=== PATIENT | male | born 1945 | race Caucasian/White ===

== ENCOUNTER → 2016-08-06 | Outpatient (CLI) | payer MEDICARE ==
[2016-08-06 12:09] LABS: Basophils % (A) 0 %; CH 33.6; CHCM 31.6; Eosinophils # (A) 0.3 k/uL (0-0.7); Eosinophils % (A) 6 %; HCT 37.1 % (39.0-53.0); HDW 2.47; HGB 11.9 gm/dL (13.0-17.5); Luc # (Auto) 0.14; Luc % (Auto) 3; Lymphocytes # (A) 1.1 k/uL (1.0-4.8); Lymphocytes % (A) 24 %; MCH 34.4 pg (25.0-35.0); MCV 107.3 fL (80.0-100.0); Macrocytosis Marked; Mean Platelet Volume 8.5; Monocytes # (A) 0.3 k/uL (0-1.0); Monocytes % (A) 6 %; Neutrophils # (A) 2.9 k/uL (1.3-7.7); Neutrophils % (A) 61 %; RBC 3.46 m/uL (4.30-5.90); RDW 15.5 % (11.5-15.5); WBC 4.7 k/uL (3.8-10.6); WBC (Perox) 4.93
[2016-08-06 12:10] LABS: Appearance,Urine Clear (Clear); Bilirubin,Urine Negative (Negative); Glucose,Urine (UA) Negative (Negative); Ketones,Urine Negative (Negative); Leukocyte Esterase,Urine Negative (Negative); Nitrite,Urine Negative (Negative); Protein,Urine Negative (Negative); Specific Gravity,Urine 1.009 (1.001-1.035); UA Billing (MACRO vs. MICRO) CHEM; Urobilinogen,Urine <2.0 mg/dL (<2.0)
[2016-08-06 12:27] LABS: Calcium 8.8 mg/dL (8.4-10.2); Magnesium 2.1 mg/dL (1.6-2.3); Phosphorous 3.4 mg/dL (2.5-4.5); Potassium 5.1 mmol/L (3.5-5.1)
[2016-08-06 12:36] LABS: % Iron Saturation 35.8 % (20-50)
[2016-08-06 14:13] LABS: Manual Review Performed
[2016-08-06 14:14] LABS: Polychromasia Present
== END ==
LOC: LABWHC1 11:37
PROVIDERS: ATTEND Nurse Practitioner Family
DX: N18.3 Chronic kidney disease, stage 3 (moderate) (principal); N25.81 Secondary hyperparathyroidism of renal origin; D64.9 Anemia, unspecified; N39.0 Urinary tract infection, site not specified
CPT/HCPCS: 36415; 80048; 81003; 82306; 82728; 83540; 83550; 83735; 83970; 84100; 85025

== ENCOUNTER 2016-08-28 11:33 | Emergency (ER) | payer MEDICARE ==
[2016-08-28] MEDS ORDERED: KETOROLAC 60 MG/2 ML VIAL IM STA (12:12)
[2016-08-28] MEDS ORDERED: ORPHENADRINE 30 MG/ML 2 ML VIAL IM STA (12:13)
--- NOTE | 2016-08-28 12:17 | ED ---
General Adult HPI - General Chief complaint: Neck Pain/Injury Stated complaint: Neck/head pain Time Seen by Provider: 08/28/16 11:35 Source: patient, RN notes reviewed Mode of arrival: ambulatory Limitations: no limitations - History of Present Illness Initial comments: This is a 71-year-old male who presents emergency Department with a past medical history significant for smoking 55+ years. Patient comes in today stating he has a 2 week history of left-sided neck stiffness which radiates up into his head. Patient states he has had some history of left ear surgery because of infection eating into his bone but he knows no other history aside from that. Patient states this pain is much worse with movement and it seems to be getting worse and not better. Patient has not taken anything for the pain. Patient has not seen his primary medical care doctor. Patient denies any numbness weakness. Patient denies any headache. He states the pain is in the scalp and it seems to increase when he makes certain movements. Patient denies any recent fever chills or cough. Patient denies any swelling lumps or bumps. Patient denies any chest pain difficult breathing or shortness of breath. Patient states she has a chronic cough but no sputum production and it is not an increase in a cough. Patient denies abdominal pain - Related Data Home Medications Medication Instructions Recorded Confirmed Ferrous Sulfate [Feosol] 325 mg PO DAILY 04/22/14 08/28/16 Lisinopril [Zestril] 10 mg PO DAILY 04/22/14 08/28/16 Lovastatin [Mevacor] 20 mg PO BID 04/22/14 08/28/16 Terazosin [Hytrin] 2 mg PO HS 04/22/14 08/28/16 Allopurinol [Zyloprim] 100 mg PO BID 07/29/15 08/28/16 Clopidogrel [Plavix] 75 mg PO DAILY 07/29/15 08/28/16 Famotidine [Pepcid] 40 mg PO DAILY 07/29/15 08/28/16 Metoprolol Tartrate [Lopressor] 25 mg PO BID 07/29/15 08/28/16 Ergocalciferol (Vitamin D2) 50,000 unit PO Q30D 08/28/16 08/28/16 [Vitamin D2] Furosemide [Lasix] 40 mg PO DAILY 08/28/16 08/28/16 Previous Rx's Medication Instructions Recorded Orphenadrine [Norflex] 100 mg PO Q12H #10 tablet.er 08/28/16 Allergies Allergy/AdvReac Type Severity Reaction Status Date / Time Iodinated Contrast Media - Allergy Unknown Verified 08/28/16 12:29 Oral and [Iodinated Contrast Media - IV Dye] Review of Systems ROS Statement: Those systems with pertinent positive or pertinent negative responses have been documented in the HPI. ROS Other: All systems not noted in ROS Statement are negative. Past Medical History Past Medical History: Chest Pain / Angina, COPD, CVA/TIA, Hyperlipidemia, Hypertension, Renal Disease Additional Past Medical History / Comment(s): Bleeding stomach ulcers, TETLIN left ear History of Any Multi-Drug Resistant Organisms: None Reported Past Surgical History: Tonsillectomy Additional Past Surgical History / Comment(s): left carotid endarectomy Past Anesthesia/Blood Transfusion Reactions: No Reported Reaction Past Psychological History: No Psychological Hx Reported Smoking Status: Current every day smoker Past Alcohol Use History: None Reported Past Drug Use History: None Reported - Past Family History Mother Family Medical History: Cancer Additional Family Medical History / Comment(s): colon Father Additional Family Medical History / Comment(s): Sister(s) Family Medical History: Cancer, Congestive Heart Failure (CHF) General Exam - General Exam Comments Initial Comments: GENERAL: Patient is well-developed and well-nourished. Patient is nontoxic and well- hydrated and is in mild distress. ENT: Neck is soft and supple. No significant lymphadenopathy is noted. Oropharynx is clear. Moist mucous membranes. Patient has significant neck stiffness. Patient can only look to the right about 15 and to the left about 30. Patient has difficulty looking up or down. He states most of this decreased range of motion is worse than normal although he has some baseline decreased range of motion. EYES: The sclera were anicteric and conjunctiva were pink and moist. Extraocular movements were intact and pupils were equal round and reactive to light. Eyelids were unremarkable. PULMONARY: Unlabored respirations. Good breath sounds bilaterally. No audible rales rhonchi or wheezing was noted. CARDIOVASCULAR: There is a regular rate and rhythm without any murmurs gallops or rubs. ABDOMEN: Soft and nontender with normal bowel sounds. No palpable organomegaly was noted. There is no palpable pulsatile mass. SKIN: Skin is clear with no lesions or rashes and otherwise unremarkable. NEUROLOGIC: Patient is alert and oriented x3. Cranial nerves II through XII are grossly intact. Motor and sensory are also intact. Normal speech, volume and content. Symmetrical smile. MUSCULOSKELETAL: Normal extremities with adequate strength and full range of motion. No lower extremity swelling or edema. No calf tenderness. LYMPHATICS: No significant lymphadenopathy is noted PSYCHIATRIC: Normal psychiatric evaluation. Normal interpersonal interactions appears functionally intact in deals appropriately with others. No signs of depression. No signs of anxiety. Limitations: no limitations Course Vital Signs 08/28/16 11:34 Temperature 96.8 F L Pulse Rate 74 Respiratory 18 Rate Blood Pressure 195/87 O2 Sat by Pulse 99 Oximetry Medical Decision Making - Medical Decision Making I will begin to reevaluate the patient he states he felt better. CT of the brain and neck show no acute abnormality Disposition Clinical Impression: Strain of neck muscle Disposition: HOME SELF-CARE Condition: Good Instructions: Cervical Strain (ED) Prescriptions: Orphenadrine [Norflex] 100 mg PO Q12H #10 tablet.er Referrals: Saeed Maddox MD [Primary Care Provider] - 1-2 days Time of Disposition: 13:01
--- NOTE | 2016-08-28 12:45 | CT ---
EXAMINATION TYPE: CT brain cspine wo con DATE OF EXAM: 08/28/2016 12:38 PM COMPARISON: CT brain November 09, 2009 HISTORY: Neck pain and CAMER[place] CT DLP: 1833 mGycm. Automated Exposure Control for Dose Reduction was Utilized. TECHNIQUE: CT scan of the head and cervical spine are performed without contrast. FINDINGS: There is no acute intracranial hemorrhage or midline shift identified. The ventricles an d sulci are within normal limits in size. There are vague areas of low-attenuation bilateral sierra r [place] new on the right and increased in prominence on the left consistent with age indeterminate isc hemia. The globes are intact and the visualized sinuses are clear. Cervical spine is visualized in its entirety from C1 through upper thoracic levels and demonstrates s traightened alignment without evidence of acute fracture or dislocation. Prevertebral soft tissue ap pears within normal limits. The C1-C2 articulation is within normal limits on the coronal images. Vertebral body heights are maintained. There is mild disc space narrowing C6-C7 and C7-T1 levels. Mod erate multilevel anterior and lateral spurring is present. Spinal canal is fairly well-maintained. Review of axial images shows left-sided uncovertebral facet degenerative changes at C2-C3 level causi ng asymmetric mild to moderate left-sided neural foraminal narrowing. Axial images at C3-C4 level show marginal spurring and bilateral uncovertebral facet degenerative lora nges causing moderate to advanced left and moderate right-sided neural foraminal narrowing. Thyroid gland is normal in size. There is emphysematous change in lung apices with apical fibrosis an d right lung apical subpleural bleb formation. IMPRESSION: 1. There is no acute fracture or dislocation evident in the cervical spine. Multilevel degenerative c hanges are seen as detailed above. 2. No acute intracranial hemorrhage or midline shift shift is seen. Age-indeterminate infarcts bilate ral coronal radiata most likely chronic in age. Clinical correlation advised.
[2016-08-28 13:20] VITALS: BP 157/77; PULSE 62; RESP 16; TEMP 98.2
== END 2016-08-28 13:15 | disposition home or self-care (01) ==
LOC: EC 11:33
DX: S16.1XXA Strain of muscle, fascia and tendon at neck level, initial encounter (principal); I10 Essential (primary) hypertension; E78.5 Hyperlipidemia, unspecified; J44.9 Chronic obstructive pulmonary disease, unspecified; F17.200 Nicotine dependence, unspecified, uncomplicated; Z79.899 Other long term (current) drug therapy; Z79.02 Long term (current) use of antithrombotics/antiplatelets; Z91.041 Radiographic dye allergy status; Z86.73 Personal history of transient ischemic attack (TIA), and cerebral infarction without residual deficits; Z87.448 Personal history of other diseases of urinary system; Z87.19 Personal history of other diseases of the digestive system; Z86.79 Personal history of other diseases of the circulatory system; X58.XXXA Exposure to other specified factors, initial encounter
CPT/HCPCS: 72125; 70450; 99283; 96372 ×2; J2360; J1885

== ENCOUNTER → 2016-11-01 | Outpatient (CLI) | payer MEDICARE ==
[2016-11-01 09:35] LABS: Appearance,Urine Clear (Clear); Bilirubin,Urine Negative (Negative); Glucose,Urine (UA) Negative (Negative); Ketones,Urine Negative (Negative); Leukocyte Esterase,Urine Negative (Negative); Nitrite,Urine Negative (Negative); PH, Urine 5.5 (5.0-8.0); Protein,Urine Negative (Negative); Specific Gravity,Urine 1.011 (1.001-1.035); UA Billing (MACRO vs. MICRO) CHEM; Urobilinogen,Urine <2.0 mg/dL (<2.0)
[2016-11-01 09:43] LABS: Calcium 9.2 mg/dL (8.4-10.2); Magnesium 2.3 mg/dL (1.6-2.3); Phosphorous 5.3 mg/dL (2.5-4.5); Potassium 5.5 mmol/L (3.5-5.1); Uric Acid 10.1 mg/dL (3.5-8.5)
[2016-11-01 09:52] LABS: % Iron Saturation 48.3 % (20-50)
[2016-11-01 10:04] LABS: Basophils % (A) 1 %; CH 33.9; CHCM 32.3; Eosinophils # (A) 0.3 k/uL (0-0.7); Eosinophils % (A) 5 %; HCT 35.8 % (39.0-53.0); HDW 2.31; Luc # (Auto) 0.17; Luc % (Auto) 3; Lymphocytes # (A) 1.1 k/uL (1.0-4.8); Lymphocytes % (A) 21 %; MCH 35.3 pg (25.0-35.0); MCHC 33.4 g/dL (31.0-37.0); MCV 105.5 fL (80.0-100.0); Macrocytosis Moderate; Mean Platelet Volume 9.7; Monocytes # (A) 0.4 k/uL (0-1.0); Monocytes % (A) 8 %; Neutrophils # (A) 3.4 k/uL (1.3-7.7); Neutrophils % (A) 62 %; RBC 3.39 m/uL (4.30-5.90); RDW 14.3 % (11.5-15.5); WBC 5.4 k/uL (3.8-10.6); WBC (Perox) 6.12
== END | disposition home or self-care (01) ==
LOC: LABWHC1 09:10
PROVIDERS: ATTEND Internal Medicine Nephrology
DX: N39.0 Urinary tract infection, site not specified (principal); D64.9 Anemia, unspecified; M10.9 Gout, unspecified; E55.9 Vitamin D deficiency, unspecified; N18.4 Chronic kidney disease, stage 4 (severe)
CPT/HCPCS: 36415; 80048; 81003; 82306; 82728; 83540; 83550; 83735; 83970; 84100; 84550; 85025

== ENCOUNTER 2016-11-12 15:24 | Inpatient (IN) | payer MEDICARE ==
[2016-11-12] MEDS ORDERED: SODIUM CHLORIDE 0.9% 1,000 ML IV STA (16:15)
[2016-11-12] MEDS ORDERED: SODIUM CHLORIDE 0.9% 1,000 ML IV ONE (16:36)
--- NOTE | 2016-11-12 16:46 | ED ---
General Adult HPI - General Chief complaint: Recheck/Abnormal Lab/Rx Stated complaint: labs/kidney-sent by Time Seen by Provider: 11/12/16 16:00 Source: patient, RN notes reviewed, old records reviewed Mode of arrival: ambulatory Limitations: no limitations - History of Present Illness Initial comments: This is a 71-year-old male here for evaluation of abnormal lab outpatient test. Patient states is been having lab tests drawn for quite some time, I believe is related to his kidneys. Otherwise he has no symptoms. Does admit to not drinking very much water. Asthma to feeling dehydrated with minimal urine output. Denies any significant edema no shortness of breath. Denies any change in medications. - Related Data Home Medications Medication Instructions Recorded Confirmed Lovastatin [Mevacor] 20 mg PO HS 04/22/14 11/12/16 Terazosin [Hytrin] 2 mg PO HS 04/22/14 11/12/16 Allopurinol [Zyloprim] 100 mg PO DAILY 07/29/15 11/12/16 Clopidogrel [Plavix] 75 mg PO DAILY 07/29/15 11/12/16 Famotidine [Pepcid] 40 mg PO DAILY 07/29/15 11/12/16 Metoprolol Tartrate [Lopressor] 25 mg PO BID 07/29/15 11/12/16 Furosemide [Lasix] 40 mg PO DAILY 08/28/16 11/12/16 Calcitriol 0.5 mcg PO Q7D 11/12/16 11/12/16 hydrALAZINE HCL [Apresoline] 50 mg PO BID 11/12/16 11/12/16 Allergies Allergy/AdvReac Type Severity Reaction Status Date / Time Iodinated Contrast Media - Allergy Unknown Verified 11/12/16 16:37 Oral and [Iodinated Contrast Media - IV Dye] Review of Systems ROS Statement: Those systems with pertinent positive or pertinent negative responses have been documented in the HPI. ROS Other: All systems not noted in ROS Statement are negative. Past Medical History Past Medical History: Chest Pain / Angina, COPD, CVA/TIA, Hyperlipidemia, Hypertension, Renal Disease Additional Past Medical History / Comment(s): Bleeding stomach ulcers, HOPI left ear History of Any Multi-Drug Resistant Organisms: None Reported Past Surgical History: Tonsillectomy Additional Past Surgical History / Comment(s): left carotid endarectomy Past Anesthesia/Blood Transfusion Reactions: No Reported Reaction Past Psychological History: No Psychological Hx Reported Smoking Status: Current every day smoker Past Alcohol Use History: None Reported Past Drug Use History: None Reported - Past Family History Mother Family Medical History: Cancer Additional Family Medical History / Comment(s): colon Father Additional Family Medical History / Comment(s): Sister(s) Family Medical History: Cancer, Congestive Heart Failure (CHF) General Exam Limitations: no limitations General appearance: alert, in no apparent distress Head exam: Present: atraumatic, normocephalic, normal inspection Eye exam: Present: normal appearance, PERRL, EOMI. Absent: scleral icterus, conjunctival injection, periorbital swelling ENT exam: Present: normal exam, mucous membranes moist Neck exam: Present: normal inspection. Absent: tenderness, meningismus, lymphadenopathy Respiratory exam: Present: normal lung sounds bilaterally. Absent: respiratory distress, wheezes, rales, rhonchi, stridor Cardiovascular Exam: Present: regular rate, normal rhythm, normal heart sounds. Absent: systolic murmur, diastolic murmur, rubs, gallop, clicks GI/Abdominal exam: Present: soft, normal bowel sounds. Absent: distended, tenderness, guarding, rebound, rigid Extremities exam: Present: normal inspection, full ROM, normal capillary refill. Absent: tenderness, pedal edema, joint swelling, calf tenderness Back exam: Present: normal inspection Neurological exam: Present: alert, oriented X3, CN II-XII intact Psychiatric exam: Present: normal affect, normal mood Skin exam: Present: warm, dry, intact, normal color. Absent: rash Course Vital Signs 11/12/16 15:39 Temperature 98.4 F Pulse Rate 74 Respiratory 20 Rate Blood Pressure 140/65 O2 Sat by Pulse 96 Oximetry - Reevaluation(s) Reevaluation #1: 11/12/16 16:45 Patient's lab evaluation from earlier in the during regarding renal function have doubled guiding his creatinine and severely decreased regarding his GFR Medical Decision Making - Medical Decision Making 71 [place] for evaluation and oral abscess, does have acute renal failure. Severe. Patient will be admitted for nephrology consult Disposition Clinical Impression: Renal insufficiency, Acute on chronic renal insufficiency Disposition: ADMITTED IP TO THIS HOSP Condition: Fair Referrals: Saeed Maddox MD [Primary Care Provider] - 1-2 days
[2016-11-12 17:01] LABS: Basophils % (A) 1 %; CH 34.8; CHCM 34.1; Eosinophils # (A) 0.3 k/uL (0-0.7); Eosinophils % (A) 5 %; HCT 34.3 % (39.0-53.0); HDW 2.35; HGB 11.6 gm/dL (13.0-17.5); Luc % (Auto) 3; Lymphocytes # (A) 1.4 k/uL (1.0-4.8); Lymphocytes % (A) 23 %; MCH 34.6 pg (25.0-35.0); MCHC 33.8 g/dL (31.0-37.0); MCV 102.5 fL (80.0-100.0); Macrocytosis Slight; Mean Platelet Volume 10.4; Monocytes # (A) 0.3 k/uL (0-1.0); Monocytes % (A) 6 %; Neutrophils # (A) 3.7 k/uL (1.3-7.7); Neutrophils % (A) 63 %; RBC 3.35 m/uL (4.30-5.90); RDW 14.2 % (11.5-15.5); WBC 5.9 k/uL (3.8-10.6); WBC (Perox) 5.85
[2016-11-12 17:11] LABS: INR 1.2 (<1.1); Partial Thromboplastin Time 27.1 sec (22.0-30.0); Prothrombin Time 11.7 sec (9.0-12.0)
[2016-11-12 17:12] LABS: Appearance,Urine Clear (Clear); Bilirubin,Urine Negative (Negative); Glucose,Urine (UA) Negative (Negative); Ketones,Urine Negative (Negative); Leukocyte Esterase,Urine Small (Negative); Nitrite,Urine Negative (Negative); Particle Count 2881; Protein,Urine 1+ (Negative); RBC,Urine 4 /hpf (0-5); Specific Gravity,Urine 1.009 (1.001-1.035); Sperm,Urine Moderate /hpf; UA Billing (MACRO vs. MICRO) MICRO; Urobilinogen,Urine <2.0 mg/dL (<2.0); WBC,Urine 12 /hpf (0-5)
[2016-11-12 17:19] LABS: Calcium 9.1 mg/dL (8.4-10.2); Magnesium 2.5 mg/dL (1.6-2.3); Phosphorous 7.5 mg/dL (2.5-4.5); Total Bilirubin 0.6 mg/dL (0.2-1.3); Total Protein 7.1 g/dL (6.3-8.2)
[2016-11-12 17:26] LABS: Creatine Kinase 146 U/L (55-170)
[2016-11-12 17:30] LABS: Manual Review Performed
[2016-11-12 17:39] LABS: Creatine Kinase MB 1.8 ng/mL (0.0-2.4); Troponin I <0.012 ng/mL (0.000-0.034)
[2016-11-12 18:47] VITALS: BMI 25.8
--- NOTE | 2016-11-12 20:14 | US ---
EXAMINATION TYPE: US renals and bladder DATE OF EXAM: 11/12/2016 COMPARISON: Prior US and CT in PACS CLINICAL HISTORY: Renal Failure EXAM MEASUREMENTS: Right Kidney: 7.8 x 3.1 x 3.0 cm Left Kidney: 11.5 x 5.1 x 4.9 cm Right Kidney: Atrophic. Cystic area visualized measuring 1.0 cm Left Kidney: Lobulated contour. No hydronephrosis Bladder: No fully distended, wnl as visualized Bilateral Jets seen: Right jet not visualized IMPRESSION: No obstructive uropathy or other acute process.
[2016-11-12] MEDS ORDERED: ACETAMINOPHEN TAB 325 MG TAB PO PRN (21:36)
[2016-11-12] MEDS ORDERED: TEMAZEPAM 7.5 MG CAP PO PRN (21:37)
[2016-11-12] MEDS: TERAZOSIN 2 MG CAP PO SCH (21:41)
[2016-11-12] MEDS: hydrALAZINE HCL 50 MG TAB PO SCH (21:41)
[2016-11-12] MEDS: FAMOTIDINE 20 MG TAB PO SCH (21:41)
[2016-11-12] MEDS: ATORVASTATIN 10 MG TAB PO SCH (21:41)
[2016-11-12] MEDS: SODIUM POLYSTYRENE SULFONATE 15 GM/60 ML BOTTLE PO SCH (21:42)
[2016-11-12] MEDS: METOPROLOL TARTRATE 25 MG TAB PO SCH (21:42)
[2016-11-12] MEDS ORDERED: ONDANSETRON 4 MG/2 ML VIAL IVP PRN (21:45)
--- NOTE | 2016-11-12 23:17 | HP ---
DATE OF ADMISSION: Mr. 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 Patient has been having apparently several weeks at least of feeling bad, with recurrent nausea, unable to eat or drink much because after doing so he becomes nauseated. He states he has been moving his stool. Family members seem to relate a 10-pound weight loss over the past month or 2, but there is some variability from different members of the patient's family. No fever or chills. No headaches. Patient does have a history of chronic renal failure, stage III to IV, and is followed by Dr. Huddleston from Nephrology. Apparently labs showed worsening renal failure and he was sent to the emergency room. Other past medical history besides the underlying chronic renal failure is positive for hypertension, hypertensive heart disease. There is continued tobacco usage. 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 There is a history of gout. There is also history of BPH. He has also had left carotid endarterectomy. The patient himself has a history of polyps; multiple polyps on a colonoscopy roughly 4 to 5 years previous; also has a positive family history. He also has a history of previous TIAs and hyperlipidemia. Home medications included: 1. Furosemide 40 mg every second day. 2. Vitamin D 50,000 units every 14 days. 3. Plavix 75 mg daily. 4. Hytrin 2 mg at bedtime. 5. Lopressor 25 mg twice a day. 6. Mevacor 20 mg at bedtime. 7. Pepcid 20 mg twice a day. 8. Calcitriol 20 mg twice a day. 9. Hydralazine 50 mg twice a day. 10. Allopurinol 100 mg daily. There is history of ALLERGIES to IODINATED CONTRAST MEDIA. No other allergies. REVIEW OF SYSTEMS: As in the history of present illness. No unusual headache. No visual disturbances. No hematemesis or hematochezia. Denies any unusual abdominal discomfort. No chest pain. No fever, chills or cough. States he is moving a small amount of bowel movements once or twice a day that are at times loose. Denies any urinary problems. Trace to no edema development. FAMILY HISTORY: As mentioned, positive for colon cancer in his mother. He also has a sister with congestive heart failure. SOCIAL HISTORY: Positive for smoking. No excessive alcohol usage. He lives locally with his in the area. On physical examination, temperature is 96.2 with a pulse of 72 and respirations 20. Blood pressure is 169/87 and he is 97% saturated on room air. HEENT: Unremarkable. No adenopathy or carotid bruits. There is some poor dentition. LUNGS: Clear. Heart tones were regular without definitive murmurs. ABDOMEN: Mildly distended but overall soft without rebound, guarding or masses detected. Extremities reveal trace ankle edema. They are warm. No ulcerations. Neurologically he is alert and oriented. Cranial nerves intact. No focal weakness noted. Lab testing revealed a white count of 5.9, hemoglobin 11.6, platelet count of 85. His INR is 1.2 with a PTT of 27. His sodium is 142, potassium of 6, CO2 content of 16. BUN 123 with creatinine 8.1. Glucose 104. Phosphorus is elevated at 7.5. Magnesium 2.5. Alkaline phosphatase was elevated at 194. Other liver function tests were satisfactory. His troponin was less than 0.012. Albumin on presentation was 4.3. Urine revealed a small amount of leukocyte esterase, 12 white cells, 4 RBCs. The patient also had an EKG which revealed a regular sinus rhythm; essentially unremarkable. Ultrasound of the kidneys did not show any hydronephrosis. OVERALL IMPRESSION: 1. Acute on chronic renal failure, now stage V, with a GFR of 7, associated with hyperkalemia. 2. Other past medical history including hypertension and hypertensive heart disease. 3. Continued tobacco usage. 4. History of gout. 5. Benign prostatic hypertrophy. 6. Status post left carotid endarterectomy. 7. Status post surgery on the left ear for cholesteatoma removal last year. 8. History of colon polyps. 9. Positive family history of colon cancer in his mother. 10. Hyperlipidemia. 11. History of previous transient ischemic attack. PLAN AT THIS TIME: Patient is being admitted, will be hydrated. Nephrology to be consulted. Likely will give Kayexalate if tolerated for his potassium. Follow up renal function. Will hold any renal-toxic medications. Further recommendations pending clinical response and results of above.
[2016-11-13] MEDS: hydrALAZINE HCL 50 MG TAB PO SCH ×2 (07:43→21:43)
[2016-11-13] MEDS: CLOPIDOGREL 75 MG TAB PO SCH (07:43)
[2016-11-13] MEDS: SODIUM POLYSTYRENE SULFONATE 15 GM/60 ML BOTTLE PO SCH ×3 (07:43→23:54)
[2016-11-13] MEDS: FAMOTIDINE 20 MG TAB PO SCH (07:43)
[2016-11-13] MEDS: METOPROLOL TARTRATE 25 MG TAB PO SCH ×2 (08:16→21:43)
--- NOTE | 2016-11-13 08:29 | P.PN ---
Progress Note - Text The patient is a 71-year-old gentleman who presented yesterday to the emergency room with acute on chronic renal failure stage V. Patient for apparently several weeks according to his has not been feeling well. Has not been able to eat or drink much in the way of fluids or other sustenance. Apparently he has lost about 10 pounds. He has been nauseated. Does not complain of any fever or chills or cough. Denies any unusual chest pain. He has been moving his bowels regularly but more small amounts. Patient was found to have elevated BUN and creatinine yesterday to 123 and creatinine of 8.1. His potassium also was elevated in the emergency room at 6.0. Patient has received Kayexalate and IV hydration. Today he is sitting up at side of the bed. He was a little nauseated from the Kayexalate earlier this morning. Temperature is 97.1 with a pulse of 74 and respirations 22 and nonlabored. Blood pressure is 157/86 and he is 93% saturated on room air. Lung and heart exam was clear and regular. Abdomen nontender. No unusual edema. No focal neurological deficits. Laboratory values from this morning pending. Impressions and plans: Acute stage V renal failure on chronic renal failure. Underlying history of hypertension. Likely aggravated by dehydration and poor renal perfusion. At this point we'll continue with the IV hydration and Kayexalate along with holding nephrotoxic medications. Consult for nephrology has been placed and we'll await for their opinion. Discussed with patient and spouse at bedside along with nursing staff this morning.
[2016-11-13 08:33] LABS: Calcium 8.5 mg/dL (8.4-10.2); Potassium 5.7 mmol/L (3.5-5.1)
[2016-11-13] MEDS ORDERED: SODIUM CHLORIDE 0.45% 1,000 ML IV SCH (19:45)
--- NOTE | 2016-11-13 20:16 | CONS ---
DATE OF CONSULTATION: November 13, 2016 REASON FOR CONSULTATION: Renal failure. HISTORY OF PRESENT ILLNESS: Patient is a 71-year-old white male who was admitted to the hospital for abnormal labs. He was noted to have a serum creatinine as outpatient to be around 7 mg/dL, but when he came in his creatinine was at 8.1 and serum potassium was at 6.0. Patient states he has been voiding. His ultrasound did not show any hydronephrosis. He did admit to decreased oral intake prior to admission. Patient was not hypotensive, however. He has been off of the GAEL inhibitors as outpatient and was started on hydralazine and Coreg for hypertension. He denies use of any nonsteroidal anti-inflammatory agents. No other new medications or antibiotics recently. Currently patient is maintained on IV fluids and his creatinine has improved to about 6.8 from 8.1 on initial admission. Patient has been voiding and he denies any issues with voiding. PAST MEDICAL HISTORY: Chronic kidney disease with baseline creatinine of around 2 mg/dL. His creatinine was at 2.5 in August 2016. It did go up to around 4.1 on November 01 and subsequently 8.3. Etiology of chronic kidney disease is nephrosclerosis. Hypertension, nutritional vitamin D deficiency, history of BPH, secondary hyperparathyroidism, hyperuricemia. ALLERGIES INCLUDE IV DYE. Medications at home prior to admission included: 1. Lasix. 2. Vitamin D. 3. Plavix. 4. Hytrin. 5. Lopressor. 6. Mevacor. 7. Pepcid. 8. Calcitriol. 9. Hydralazine. 10. Allopurinol. PAST SURGICAL HISTORY: Carotid endarterectomy, surgery for left ear cholesteatoma, colonoscopy. SOCIAL HISTORY: Positive for smoking. No history of drug abuse or alcohol abuse. REVIEW OF SYSTEMS: As per HPI. Other systems negative. On examination, patient is comfortable, awake. He is not in any acute distress. He is alert and oriented x3. Blood pressure this morning was 157/86, heart rate 74 per minute. The patient is afebrile. HEART: S1 and S2. LUNGS: Bilateral breath sounds are heard. ABDOMEN: Soft, nontender. Lower extremities show no significant edema. 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 Patient is moving all 4 extremities. Labs show sodium 142, potassium 5.7, chloride 113, CO2 is 14, BUN 117, serum creatinine 6.8. Hemoglobin 11.6 g/dL. Phosphorus was at 7.5. UA shows 1+ protein, 12 WBCs. ASSESSMENT: 1. Acute kidney injury. Appears to be prerenal. Continue with IV fluids. Creatinine has improved from 8.1 to 6.8. There is no evidence of obstructive uropathy. I will check a postvoid residual scan. Ultrasound was otherwise unremarkable. 2. Chronic kidney disease with baseline creatinine about 2 to 2.5 mg/dL as of August 2016. 3. Hyperkalemia associated with acute kidney injury and metabolic acidosis, status post Kayexalate and currently improved. 4. Metabolic acidosis, anion gap secondary to renal failure, slightly worsened. Will add oral sodium bicarb and switch IV fluids to half normal saline. 5. Hyperphosphatemia associated with renal failure. Add phosphate binders. PLAN: Change IV fluids to half normal saline. Add oral sodium bicarb. Add PhosLo. Repeat labs in a.m. Avoid hypotension. Thank you for this consultation. Will continue to follow the patient with you during his hospitalization.
[2016-11-13] MEDS: ATORVASTATIN 10 MG TAB PO SCH (21:43)
[2016-11-13] MEDS: TERAZOSIN 2 MG CAP PO SCH (21:43)
[2016-11-13] MEDS: SODIUM BICARBONATE TAB 650 MG TAB PO SCH (21:47)
[2016-11-13] MEDS ORDERED: IPRATROPIUM-ALBUTEROL 3 ML NEB INHALATION STA (23:19)
--- NOTE | 2016-11-14 06:54 | XR ---
EXAMINATION TYPE: XR chest 2V DATE OF EXAM: 11/14/2016 COMPARISON: Chest x-ray July 30, 2015. CT abdomen and pelvis November 04, 2015 HISTORY: Shortness of breath TECHNIQUE: Frontal and lateral views of the chest are obtained. FINDINGS: There is chronic emphysematous change with persistent small left pleural effusion or pleur al thickening unchanged from prior study. Latter suspected based on CT abdomen correlation. There is no associated left basilar atelectasis and/or infiltrate more prominent on lateral view is prior. Rig ht lung remains clear. The cardiac silhouette size is stable and upper limits of normal. The osseou s structures are intact. IMPRESSION: There is stable tiny left pleural thickening with new left basilar atelectasis and/or in filtrate.
[2016-11-14] MEDS: IPRATROPIUM-ALBUTEROL 3 ML NEB INHALATION PRN ×4 (07:04→19:49)
[2016-11-14] MEDS: CALCIUM ACETATE 667 MG CAP PO SCH ×3 (07:39→15:58)
[2016-11-14] MEDS: FAMOTIDINE 20 MG TAB PO SCH (07:39)
[2016-11-14] MEDS: METOPROLOL TARTRATE 25 MG TAB PO SCH ×2 (07:39→20:47)
[2016-11-14] MEDS: hydrALAZINE HCL 50 MG TAB PO SCH ×2 (07:39→20:47)
[2016-11-14] MEDS: SODIUM BICARBONATE TAB 650 MG TAB PO SCH ×2 (07:39→20:47)
[2016-11-14] MEDS: CLOPIDOGREL 75 MG TAB PO SCH (07:39)
[2016-11-14] MEDS: SODIUM POLYSTYRENE SULFONATE 15 GM/60 ML BOTTLE PO SCH (07:41)
--- NOTE | 2016-11-14 08:37 | P.PN ---
Progress Note - Text The patient is a 71-year-old man who presented to the hospital 2 days previous with acute on chronic renal failure. He had had chronic kidney disease with the stage III before renal failure and creatinines around 2-2.5. Outpatient laboratory values revealed a creatinine of 8.3. Patient does have comorbidities with hypertension and continued tobacco usage. History of BPH and secondary hyperparathyroidism and hyperuricemia. Patient apparently had some shortness of breath last evening and did receive respiratory treatments. He does feel somewhat better this morning and sitting at the side of the bed in his chair. is present. Last recorded vital signs reveal temperature of 97.9 with a pulse of 83 and respirations 16. Blood pressure 155/81 and he is 97% saturated on 2 L. Lungs do reveal some basilar crepitations more so on the left. Heart tones were regular. Abdomen is mildly distended but soft and nontender. No distal edema in the lower extremities. Cranial nerves are intact and no focal neurological deficits noted. Laboratory results: Pending this morning although yesterday's that show some mild improvement with a decrease in creatinine from 8.1 to 6.8. Chest x-ray Showed generally stable appearance with a small left pleural thickening but some new basilar atelectasis and/or infiltrate seen. Impressions and plans: Patient with the acute stage V on chronic renal failure. He is receiving some mild rehydration as per nephrology along with phosphate binders and bicarb orally. Discussed with patient and at bedside. Questions answered to the best of my ability. Continue present treatment.
[2016-11-14 09:09] LABS: Basophils % (A) 0 %; CH 34.3; CHCM 33.1; Eosinophils # (A) 0.1 k/uL (0-0.7); Eosinophils % (A) 1 %; HCT 31.8 % (39.0-53.0); HDW 2.37; HGB 10.5 gm/dL (13.0-17.5); Luc # (Auto) 0.15; Luc % (Auto) 2; Lymphocytes # (A) 0.8 k/uL (1.0-4.8); Lymphocytes % (A) 12 %; MCH 34.6 pg (25.0-35.0); MCHC 33.1 g/dL (31.0-37.0); MCV 104.2 fL (80.0-100.0); Macrocytosis Slight; Mean Platelet Volume 9.3; Monocytes # (A) 0.4 k/uL (0-1.0); Monocytes % (A) 6 %; Neutrophils # (A) 5.4 k/uL (1.3-7.7); Neutrophils % (A) 80 %; RBC 3.05 m/uL (4.30-5.90); RDW 14.1 % (11.5-15.5); WBC 6.8 k/uL (3.8-10.6); WBC (Perox) 7.42
[2016-11-14 09:16] LABS: Calcium 8.4 mg/dL (8.4-10.2); Magnesium 1.9 mg/dL (1.6-2.3); Phosphorous 6.3 mg/dL (2.5-4.5); Potassium 4.8 mmol/L (3.5-5.1)
[2016-11-14] MEDS ORDERED: CALCITRIOL 0.25 MCG CAP PO SCH (12:00)
[2016-11-14] MEDS ORDERED: DEXTROSE 5% IN WATER 1,000 ML with SODIUM BICARB (1 MEQ/ML) 150 ML IV SCH (15:00)
[2016-11-14] MEDS: WATER FOR INJECTION, STERILE 1,000 ML with SODIUM ACETATE 150 MEQ IV SCH ×2 (15:58)
--- NOTE | 2016-11-14 16:52 | PN ---
Patient is seen for follow-up for acute kidney injury. He was admitted to the hospital with severe renal failure with creatinine all the way up to 8.1 mg/dL. Currently patient is maintained on IV fluids. His renal function has improved somewhat with creatinine down to 5.5 now. Patient has had good urine output although it is not accurately charted. There is no evidence of obstructive uropathy. Last night it appears that he was short of breath. His IV fluids have been decreased to about 50 mL an hour. On examination today, blood pressure is 155/81, heart rate 90 per minute. He is afebrile. Examination of the heart: S1 and S2. Examination of the lungs: Bilateral breath sounds are heard. Abdomen is soft, nontender, obese. Examination of lower extremities shows no significant edema. LEAD LOADER exam is grossly intact. Patient is moving all 4 extremities. Labs show sodium 142, potassium 4.8, chloride 113. CO2 is 14. BUN 101, serum creatinine 5.57. Hemoglobin was at 10.5 g/dL. ASSESSMENT: 1. Acute kidney injury slowly improving with creatinine down to 5.5 from 8.1. Patient is maintained on IV fluids. Again there is no evidence of obstructive uropathy. There was significant deterioration of the renal function with serum creatinine at baseline at about 2.5 mg/dL going up to 4.1 and subsequently 8.3 at the time of admission. His UA is fairly unremarkable with some degree of proteinuria, but otherwise no significant hematuria to suggest any other underlying glomerular nephritis. We will continue with the IV hydration for now and we can continue at 50 mL/h. We need to monitor his urine output more accurately. 2. Metabolic acidosis started on oral sodium bicarb. I will change the IV fluids to IV bicarb as he remains acidotic. 3. Secondary hyperparathyroidism maintained on calcitriol with no evidence of hypercalcemia. 4. Dyslipidemia. PLAN: Change IV fluids to IV bicarb. Continue at about 50 mL/h and repeat labs in the a.m. Again, this is a fairly rapid decline in renal function for this patient. There is no evidence of hydronephrosis on the ultrasound. We will, however, check postvoid residual or postvoid bladder scan.
[2016-11-14] MEDS: TERAZOSIN 2 MG CAP PO SCH (20:47)
[2016-11-14] MEDS: ATORVASTATIN 10 MG TAB PO SCH (20:47)
[2016-11-15] MEDS: IPRATROPIUM-ALBUTEROL 3 ML NEB INHALATION PRN ×4 (05:58→22:02)
[2016-11-15] MEDS: CALCIUM ACETATE 667 MG CAP PO SCH ×3 (07:49→17:41)
[2016-11-15] MEDS: CLOPIDOGREL 75 MG TAB PO SCH (07:49)
[2016-11-15] MEDS: FAMOTIDINE 20 MG TAB PO SCH (07:50)
[2016-11-15] MEDS: SODIUM BICARBONATE TAB 650 MG TAB PO SCH ×2 (07:50→22:00)
[2016-11-15] MEDS: hydrALAZINE HCL 50 MG TAB PO SCH ×2 (07:50→22:01)
[2016-11-15] MEDS: METOPROLOL TARTRATE 25 MG TAB PO SCH ×2 (07:50→22:01)
--- NOTE | 2016-11-15 08:03 | P.PN ---
Progress Note - Text The patient is a 71-year-old who presented 3 days ago with acute on chronic renal failure. Creatinine had initially clovis to 8.3 and he was stage V. The patient has been receiving IV fluids along with phosphate binders and bicarb. Ultrasound does not show obstruction. The patient has been followed by nephrology and please refer to their notes. This morning he is sitting up at the side of the bed. He states his nausea has improved. Denies any chest pain or shortness of breath at this time. Spouse is present at the bedside. Vital signs reveal temperature 98.5 with a pulse of 93 and respirations 16. Blood pressure is 139/75 and he is 95% saturated on 2 L. Lungs are clear to auscultation. Heart tones were regular. Abdomen nontender. Compression appliances in place and no definite edema of the lower extremities. No focal neurological deficits. Laboratory results: Pending from this morning. Yesterday's did show a decrease of his BUN to 101 and creatinine down to 5.7. Phosphorus also decreased down to 6.3. Impressions and plans: Acute on chronic renal failure. Acute ATN. We'll continue present treatment, monitoring and lab testing. Discussed with patient and at bedside this morning. Nephrology note guarded. Basic metabolic panel and phosphorus ordered for tomorrow morning.
[2016-11-15 09:12] LABS: Calcium 8.6 mg/dL (8.4-10.2); Potassium 4.4 mmol/L (3.5-5.1)
[2016-11-15] MEDS: WATER FOR INJECTION, STERILE 1,000 ML with SODIUM ACETATE 150 MEQ IV SCH ×2 (12:37)
--- NOTE | 2016-11-15 16:00 | PN ---
Patient is seen for followup for acute kidney injury with significant worsening of renal function. Patient is currently maintained on IV fluids. His renal function is improving, although slowly, with serum creatinine now down to 4.9 from 8.1 mg/dL. He states overall that he is feeling slightly better. On examination, blood pressure is 144/77, heart rate 80 per minute. He is afebrile. EXAMINATION OF THE HEART: S1 and S2. EXAMINATION OF LUNGS: Bilateral breath sounds are heard. Decreased breath sounds in the bases. No crackles or wheezing is heard. ABDOMEN: Soft, nontender. Examination of lower extremities shows no significant edema. HOME CARE MUSIC THERAPIST exam is grossly intact. Labs show serum creatinine 4.9, sodium 139, potassium 4.4, BUN 96. CO2 is 19. Hemoglobin 10.5 g/dL. ASSESSMENT: 1. Acute kidney injury, likely prerenal, slowly improving with IV hydration. Will continue with the fluids for now. 2. Hypertension, currently controlled. 3. Metabolic acidosis, maintained on oral sodium bicarb. Patient was also started on IV bicarb, which is now off. His acidosis has improved. We can continue with the oral bicarb for now. 4. Anemia of chronic disease. 5. Hyperkalemia on initial admission, currently improved. 6. Hypophosphatemia, improving with improving renal function. Patient is also maintained on PhosLo, which we can continue for now. 7. Chronic kidney disease bone mineral disorder, maintained on Rocaltrol. PLAN: Continue with IV sodium acetate, which is being given in place of sodium bicarb. Continue the oral sodium bicarb as well and repeat labs in a.m.
[2016-11-15] MEDS: TERAZOSIN 2 MG CAP PO SCH (22:00)
[2016-11-15] MEDS: ATORVASTATIN 10 MG TAB PO SCH (22:00)
[2016-11-16] MEDS: IPRATROPIUM-ALBUTEROL 3 ML NEB INHALATION PRN ×5 (04:02→19:57)
[2016-11-16] MEDS: CALCIUM ACETATE 667 MG CAP PO SCH ×3 (07:34→17:47)
[2016-11-16] MEDS: hydrALAZINE HCL 50 MG TAB PO SCH ×2 (07:34→20:50)
[2016-11-16] MEDS: CLOPIDOGREL 75 MG TAB PO SCH (07:34)
[2016-11-16] MEDS: METOPROLOL TARTRATE 25 MG TAB PO SCH ×2 (07:35→20:50)
[2016-11-16] MEDS: SODIUM BICARBONATE TAB 650 MG TAB PO SCH ×2 (07:35→20:51)
[2016-11-16] MEDS: FAMOTIDINE 20 MG TAB PO SCH (07:35)
--- NOTE | 2016-11-16 08:33 | P.PN ---
Progress Note - Text The patient is a 71-year-old gentleman who presented 4 days ago now with the acute renal injury, acute on chronic renal failure. Creatinine initially was high as 8.3. The patient has been on IV hydration along with bicarbonate and phosphate binders. Ultrasound did not reveal obstruction. Patient has been seen by nephrology and please refer to their notes. He is sitting up at the side of the bed and states he feels somewhat better today. Less nauseated. States at times he feels short of breath. He does not appear to be any distress at this time this morning sitting up. Vital signs reveal temperature of 98.9 with a pulse of 84 and respirations 18. Blood pressure 149/84 and he is 92% saturated on room air. Head and neck exam unremarkable. May be some fine rales at the bases but otherwise clear lungs. Heart tones are regular. Abdomen is nontender. No lower extremity edema. No focal neurological deficits. Laboratory values: Labs are pending this morning. Yesterday's labs revealed a BUN of 96 and a creatinine of 4.9 still giving patient GFR of only 12. Blood sugar was 146. Potassium 4.4. Impressions and plans: Nephrology note regarded. Discussed with patient at bedside this morning. Continue present treatment awaiting results of labs from this morning. Long- term prognosis still guarded.
[2016-11-16 08:49] LABS: Calcium 8.6 mg/dL (8.4-10.2); Phosphorous 5.2 mg/dL (2.5-4.5); Potassium 4.2 mmol/L (3.5-5.1)
[2016-11-16] MEDS: WATER FOR INJECTION, STERILE 1,000 ML with SODIUM ACETATE 150 MEQ IV SCH ×2 (10:59)
--- NOTE | 2016-11-16 13:10 | PN ---
Patient is seen for followup for acute kidney injury. He is maintained on IV fluids at 50 mL an hour. Renal function has been slowly improving. Serum creatinine is down from 8.1 to 4.73 mg/dL. Patient has been voiding well; however, he states that he has not had any appetite and has not been eating much. On examination, blood pressure is 149/84, heart rate 80 per minute. He is afebrile. EXAMINATION OF THE HEART: S1 and S2. EXAMINATION OF THE LUNGS: Bilateral breath sounds are heard. ABDOMEN: Soft, nontender. Examination of lower extremities shows no evidence of edema. MANAGER ADMINISTRATIVE SERVICES exam is grossly intact. Labs show sodium 138, potassium 4.2, BUN 93, serum creatinine 4.73. Hemoglobin was 10.5 g/dL on 11/14. ASSESSMENT: 1. Acute kidney injury appears to be prerenal with an element of acute tubular necrosis, slowly improving with IV hydration. I would have expected the renal function to improve further over the last 4 days; however, since it has improved since admission, I will continue with IV fluids and repeat labs in a.m. Patient is encouraged to try and increase his oral intake. There are no nephrotoxic agents on board and there is no evidence of obstructive uropathy. UA was unremarkable. 2. Chronic kidney disease with baseline creatinine around 2 mg/dL as of November 04, 2015 PLAN: Continue IV fluids, hold discharge for now.
[2016-11-16] MEDS: ATORVASTATIN 10 MG TAB PO SCH (20:50)
[2016-11-16] MEDS: TERAZOSIN 2 MG CAP PO SCH (20:50)
[2016-11-17] MEDS: IPRATROPIUM-ALBUTEROL 3 ML NEB INHALATION PRN ×5 (03:14→19:20)
[2016-11-17] MEDS: WATER FOR INJECTION, STERILE 1,000 ML with SODIUM ACETATE 150 MEQ IV SCH ×2 (04:19)
[2016-11-17 07:21] VITALS: RESP 16
[2016-11-17 08:04] LABS: Calcium 8.7 mg/dL (8.4-10.2); Potassium 4.3 mmol/L (3.5-5.1)
[2016-11-17] MEDS: SODIUM BICARBONATE TAB 650 MG TAB PO SCH ×2 (08:50→21:41)
[2016-11-17] MEDS: hydrALAZINE HCL 50 MG TAB PO SCH ×2 (08:50→21:41)
[2016-11-17] MEDS: CLOPIDOGREL 75 MG TAB PO SCH (08:51)
[2016-11-17] MEDS: CALCIUM ACETATE 667 MG CAP PO SCH ×3 (08:51→16:43)
[2016-11-17] MEDS: METOPROLOL TARTRATE 25 MG TAB PO SCH ×2 (08:51→21:41)
[2016-11-17] MEDS: FAMOTIDINE 20 MG TAB PO SCH (08:51)
[2016-11-17 09:59] LABS: Hepatitis B Surface Ag Index 0.05
[2016-11-17] MEDS: predniSONE 20 MG TAB PO SCH (10:00)
--- NOTE | 2016-11-17 10:13 | PN ---
Patient is seen for followup for acute kidney injury. Patient's renal function improved to some degree with IV hydration; however, it is not further improving. He remains at about 4.6 mg/dL, which is actually down from 8.1. However, patient's baseline creatinine was around 2 mg/dL. His UA showed some protein. There was no blood. There were 4 RBCs and a suspicion for acute interstitial nephritis is low; however, since this is no further improvement, I will start prednisone and we will order serologies for workup. Patient can be discharged tomorrow with plans to follow up as outpatient in about 4 to 5 days. I have advised him that if his renal function does not improve further, he may need to start dialysis, particularly given his low appetite and poor oral intake. 1. Hypertension, currently controlled. 2. Chronic kidney disease with [employer] stage 3B to 4 with baseline around 2 mg/dL. 3. Vitamin D deficiency maintained on supplementation. 4. Metabolic acidosis, maintained on oral sodium bicarb. PLAN: Continue IV fluids. Most likely, patient can be discharged tomorrow. I will start prednisone and check serologies and will discuss renal replacement therapy further as outpatient upon followup in the office.
[2016-11-17 10:17] LABS: Hepatitis C Virus IgG Ab Negative (Negative); Hepatitis C Virus IgG Index 0.05
--- NOTE | 2016-11-17 11:14 | P.PN ---
Progress Note - Text The patient is a 71-year-old gentleman presented 5 days ago with acute renal injury and acute on chronic renal failure with an elevated creatinine of 8.3. Patient has been seen by nephrology and with IV fluids has had some improvement but still stage 5 renal failure persists. He presently is sitting up in a chair in his room. In no acute distress. He denies any acute shortness of breath or chest pain. Family is bringing him in some food from home. Vital signs reveal temperature of 98.3 with a pulse of 92 and respirations 16. Blood pressure 167/86 and he is 94% saturated on 2 L nasal cannula. Patient does have crepitations at the bases. Heart tones are regular. Abdomen is nontender. No unusual edema noted. No focal neurological deficits noted. Laboratory values: Potassium is 4.3. BUN is 95. And creatinine 4.65 which is minimally changed from yesterday, seems to be stabilizing at this range. Impressions and plans: Nephrology note regarded. Continuing present therapy with the addition of prednisone 40 mg daily. Other laboratory workup is pending and also kidney labs will be repeated tomorrow. Evaluation for autoimmune nephritis type renal injury being performed. Discussed with patient and at bedside. Discussed possibility of outpatient dialysis. They brought up the question of renal transplantation and they will discuss further with nephrology. Nephrology and patient anticipating discharge for tomorrow. Dr. Philip Fournier on-call over the weekend for me if any concerns or problems should arise.
[2016-11-17] MEDS: ATORVASTATIN 10 MG TAB PO SCH (21:41)
[2016-11-17] MEDS: TERAZOSIN 2 MG CAP PO SCH (21:41)
[2016-11-18] MEDS: IPRATROPIUM-ALBUTEROL 3 ML NEB INHALATION PRN ×3 (02:31→11:50)
[2016-11-18] MEDS: WATER FOR INJECTION, STERILE 1,000 ML with SODIUM ACETATE 150 MEQ IV SCH ×2 (06:29)
[2016-11-18 07:24] VITALS: BP 178/79; TEMP 97.1
[2016-11-18] MEDS: hydrALAZINE HCL 50 MG TAB PO SCH (07:36)
[2016-11-18] MEDS: SODIUM BICARBONATE TAB 650 MG TAB PO SCH (07:36)
[2016-11-18] MEDS: CALCIUM ACETATE 667 MG CAP PO SCH (07:36)
[2016-11-18] MEDS: predniSONE 20 MG TAB PO SCH (07:36)
[2016-11-18] MEDS: METOPROLOL TARTRATE 25 MG TAB PO SCH (07:36)
[2016-11-18] MEDS: FAMOTIDINE 20 MG TAB PO SCH (07:37)
[2016-11-18] MEDS: CLOPIDOGREL 75 MG TAB PO SCH (07:37)
[2016-11-18 08:31] LABS: Calcium 8.9 mg/dL (8.4-10.2); Potassium 4.4 mmol/L (3.5-5.1)
[2016-11-18 12:02] VITALS: PULSE 84
[2016-11-18] MEDS ORDERED: hydrALAZINE HCL 50 MG TAB PO SCH (16:00)
[2016-11-19] MEDS ORDERED: ERGOCALCIFEROL 50,000 UNIT CAP PO SCH (12:00)
[2016-11-19 15:31] LABS: C-ANCA <1:20 Titer (<1:20); P-ANCA <1:20 Titer (<1:20)
--- NOTE | 2016-11-20 07:35 | DS ---
DATE OF ADMISSION: 11/12/2016 DATE OF DISCHARGE: 11/18/2016 Mr. Ward is a 71-year-old gentleman who presented to the emergency room with nausea, unable to eat or drink much fluid, 10 pounds weight loss and weakness. He was found to have acute on chronic of renal failure stage II time with acute tubular necrosis likely the underlying etiology. The patient had been followed by nephrology, for chronic kidney disease stage III for many years. Patient on presentation, underwent ultrasound of the kidneys to rule out any obstruction, which was negative and received hydration and consultation obtained with nephrology. Please see Dr. Huddleston's note. All nephrotoxic medications were held. In search for infection, chest x-ray and urine cultures were performed and essentially negative for any acute infection. EKG revealed sinus rhythm. A chest x-ray revealed some atelectasis. Laboratory values revealed initial BUN 123 with creatinine of 8.1, phosphorus was elevated at 7.5. Initial potassium also elevated. His initial GFR was 7 indicating stage V renal failure. His potassium was elevated at 6.0. The patient received Kayexalate and also phosphate binders with PhosLo was initiated along with the Kayexalate and IV hydration. His BUN did decrease from 123 down to 93 and the creatinine has decreased from 8.1, down to 4.11, but his GFR still remained at 14, stage 5. Initial testing for immunologic diseases with hepatitis B surface antigen hepatitis C IgG antibody were negative. Complement C3 and C4 also were within normal range. Other labs to follow. Patient was started on prednisone and with stabilization of his fluid balance and renal function, he was to be followed up as an outpatient with Dr. Huddleston during the week. FINAL DIAGNOSIS(ES): 1. Acute on chronic renal failure stage 5 with acute tubular necrosis associated with the initial hyperphosphatemia and hyperkalemia. 2. Other comorbidities include hypertension and hypertensive heart disease. 3. Continued tobacco usage. 4. 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 5. History of gout. 6. Benign prostatic hypertrophy. 7. History of left carotid endarterectomy. 8. History of colon polyps with last colonoscopy 4 to 5 years ago. 9. History of transient ischemic attack. 10. Hyperlipidemia. Recommended home medications: 1. He is on prednisone 40 mg daily. 2. Hydralazine was increased to 50 mg 3 times a day because of his elevated blood pressures 3. Continue with his Calcitriol 0.5 mcg on Saturday. 4. Pepcid 20 mg twice a day. 5. Lovastatin for cholesterol 20 mg at bedtime. 6. Metoprolol 25 mg twice a day. 7. Hytrin 2 mg at bedtime for his underlying benign prostatic hypertrophy. 8. Plavix 75 mg daily. 9. Vitamin D2 50 units in 2 weeks. 10. The patient is also taking was in the hospital taking bicarb twice a day and PhosLo with meals, which may or may not need to be reinstituted by nephrology, as outpatient. 11. Also patient had been on Zyloprim 100 mg daily which was held during this hospitalization, although the patient does have history of gout. At this point once again, the patient will follow up over the next 5 to 7 days with nephrology and myself. He is to stay on the low potassium, low phosphate diet. Call the office if any concerns or problems. JULIANNE
== END 2016-11-18 12:20 | disposition home or self-care (01) | DRG 683 ==
LOC: EC 15:24 → 4MS4W 16:36
PROVIDERS: ADMIT Internal Medicine; ATTEND Internal Medicine
DX: N17.0 Acute kidney failure with tubular necrosis (principal); E87.2 Acidosis; I13.11 Hypertensive heart and chronic kidney disease without heart failure, with stage 5 chronic kidney disease, or end stage renal disease; E87.5 Hyperkalemia; D63.8 Anemia in other chronic diseases classified elsewhere; E83.39 Other disorders of phosphorus metabolism; E55.9 Vitamin D deficiency, unspecified; E66.9 Obesity, unspecified; E78.5 Hyperlipidemia, unspecified; E86.0 Dehydration; F17.200 Nicotine dependence, unspecified, uncomplicated; J44.9 Chronic obstructive pulmonary disease, unspecified; M10.9 Gout, unspecified; N18.5 Chronic kidney disease, stage 5; N25.81 Secondary hyperparathyroidism of renal origin; N40.0 Benign prostatic hyperplasia without lower urinary tract symptoms; H91.92 Unspecified hearing loss, left ear; Z68.28 Body mass index [BMI] 28.0-28.9, adult; Z79.02 Long term (current) use of antithrombotics/antiplatelets; Z79.899 Other long term (current) drug therapy; Z91.041 Radiographic dye allergy status; Z82.49 Family history of ischemic heart disease and other diseases of the circulatory system
CPT/HCPCS: 36415; 71020; 76770; 80048; 80053; 81001; 82550; 82553; 83735; 84100; 84484; 84550; 85025; 85610; 85730; 86038; 86160; 86225; 86255; 86803; 87086; 87340; 93005; 94640; 94760; 96360; 99285

== ENCOUNTER → 2016-11-12 | Outpatient (CLI) | payer MEDICARE ==
[2016-11-12 09:24] LABS: Calcium 8.8 mg/dL (8.4-10.2); Potassium 5.7 mmol/L (3.5-5.1); Uric Acid 9.2 mg/dL (3.5-8.5)
== END | disposition home or self-care (01) ==
LOC: LABWHC1 08:46
PROVIDERS: ATTEND Nurse Practitioner Family
DX: N18.4 Chronic kidney disease, stage 4 (severe) (principal); M10.9 Gout, unspecified
CPT/HCPCS: 36415; 80048; 84550

== ENCOUNTER → 2016-11-21 | Outpatient (CLI) | payer MEDICARE ==
[2016-11-21 10:07] LABS: Potassium 4.1 mmol/L (3.5-5.1)
== END | disposition home or self-care (01) ==
LOC: LABWHC1 09:11
PROVIDERS: ATTEND Internal Medicine
DX: E83.39 Other disorders of phosphorus metabolism (principal); N18.3 Chronic kidney disease, stage 3 (moderate)
CPT/HCPCS: 36415; 80048; 84100

== ENCOUNTER → 2016-11-30 | Outpatient (CLI) | payer MEDICARE ==
[2016-11-30 09:46] LABS: Calcium 8.6 mg/dL (8.4-10.2); Potassium 4.5 mmol/L (3.5-5.1)
== END | disposition home or self-care (01) ==
LOC: LABWHC1 09:07
PROVIDERS: ATTEND Nurse Practitioner Family
DX: N18.4 Chronic kidney disease, stage 4 (severe) (principal)
CPT/HCPCS: 36415; 80048

== ENCOUNTER 2016-12-01 05:12 | Emergency (ER) | payer MEDICARE ==
[2016-12-01] MEDS ORDERED: FUROSEMIDE 80 MG TAB PO STA (06:22)
--- NOTE | 2016-12-01 06:25 | ED ---
General Adult HPI - General Chief complaint: Extremity Problem,Nontraumatic Stated complaint: LEG SWELLING Time Seen by Provider: 12/01/16 05:51 Source: patient, RN notes reviewed, old records reviewed Mode of arrival: ambulatory Limitations: no limitations - History of Present Illness Initial comments: This is a 71-year-old male here for evaluation. Patient is here today for evaluation of lower extremity edema. Patient does have history of lower extremity edema and swelling, history of renal disease. Patient currently on steroids to help with swelling. No other complaints, mild pain. Patient has no significant shortness of breath. History of renal disease. Does follow up with nephrology - Related Data Home Medications Medication Instructions Recorded Confirmed Lovastatin [Mevacor] 20 mg PO HS 04/22/14 12/01/16 Terazosin [Hytrin] 2 mg PO HS 04/22/14 12/01/16 Allopurinol [Zyloprim] 100 mg PO DAILY 07/29/15 12/01/16 Clopidogrel [Plavix] 75 mg PO DAILY 07/29/15 12/01/16 Famotidine [Pepcid] 20 mg PO BID 07/29/15 12/01/16 Metoprolol Tartrate [Lopressor] 25 mg PO BID 07/29/15 12/01/16 Furosemide [Lasix] 40 mg PO Q48H 08/28/16 12/01/16 Calcitriol 0.5 mcg PO WE 11/12/16 12/01/16 hydrALAZINE HCL [Apresoline] 50 mg PO BID 11/12/16 12/01/16 predniSONE 20 mg PO DAILY 12/01/16 12/01/16 Allergies Allergy/AdvReac Type Severity Reaction Status Date / Time Iodinated Contrast Media - Allergy Unknown Verified 12/01/16 05:19 Oral and [Iodinated Contrast Media - IV Dye] Review of Systems ROS Statement: Those systems with pertinent positive or pertinent negative responses have been documented in the HPI. ROS Other: All systems not noted in ROS Statement are negative. Past Medical History Past Medical History: Chest Pain / Angina, COPD, CVA/TIA, Hyperlipidemia, Hypertension, Renal Disease Additional Past Medical History / Comment(s): Bleeding stomach ulcers, TORRES MARTINEZ both ears worse on left ear, bilateral cataracts History of Any Multi-Drug Resistant Organisms: None Reported Past Surgical History: Tonsillectomy Additional Past Surgical History / Comment(s): left carotid endartectomy, left ear surgery for diseased bone. Past Anesthesia/Blood Transfusion Reactions: No Reported Reaction Past Psychological History: No Psychological Hx Reported Smoking Status: Current every day smoker Past Alcohol Use History: None Reported Past Drug Use History: None Reported - Past Family History Mother Family Medical History: Cancer Additional Family Medical History / Comment(s): colon Father Additional Family Medical History / Comment(s): Sister(s) Family Medical History: Cancer, Congestive Heart Failure (CHF) General Exam Limitations: no limitations General appearance: alert, in no apparent distress Head exam: Present: atraumatic, normocephalic, normal inspection Eye exam: Present: normal appearance, PERRL, EOMI. Absent: scleral icterus, conjunctival injection, periorbital swelling ENT exam: Present: normal exam, mucous membranes moist Neck exam: Present: normal inspection. Absent: tenderness, meningismus, lymphadenopathy Respiratory exam: Present: normal lung sounds bilaterally. Absent: respiratory distress, wheezes, rales, rhonchi, stridor Cardiovascular Exam: Present: regular rate, normal rhythm, normal heart sounds. Absent: systolic murmur, diastolic murmur, rubs, gallop, clicks GI/Abdominal exam: Present: soft, normal bowel sounds. Absent: distended, tenderness, guarding, rebound, rigid Extremities exam: Present: normal inspection, full ROM, normal capillary refill , other (Bilateral lower extremity edema, ankle, no erythema, no pain). Absent : tenderness, pedal edema, joint swelling, calf tenderness Back exam: Present: normal inspection Neurological exam: Present: alert, oriented X3, CN II-XII intact Psychiatric exam: Present: normal affect, normal mood Skin exam: Present: warm, dry, intact, normal color. Absent: rash Course Vital Signs 12/01/16 05:17 Temperature 97.9 F Pulse Rate 91 Respiratory 18 Rate Blood Pressure 212/94 O2 Sat by Pulse 97 Oximetry - Reevaluation(s) Reevaluation #1: 12/01/16 06:23 Lab values reviewed from yesterday, kidney function is mildly elevated but baseline for patient Medical Decision Making - Medical Decision Making Sed rates emailed ER for evaluation of lower extremity, ankle edema, encouraged to increase lifting legs at night while sleeping, to help with edema, given 1 dose of Lasix, follow up with nephrology Disposition Clinical Impression: Renal insufficiency, Bilateral lower extremity edema Disposition: HOME SELF-CARE Condition: Good Instructions: Leg Edema (ED) Referrals: Saeed Maddox MD [Primary Care Provider] - 1-2 days
[2016-12-01 06:36] VITALS: BP 193/89; PULSE 80; RESP 20; TEMP 97.2
== END 2016-12-01 06:45 | disposition home or self-care (01) ==
LOC: EC 05:12
DX: N28.9 Disorder of kidney and ureter, unspecified (principal); R60.0 Localized edema; I10 Essential (primary) hypertension; E78.5 Hyperlipidemia, unspecified; F17.200 Nicotine dependence, unspecified, uncomplicated; Z86.73 Personal history of transient ischemic attack (TIA), and cerebral infarction without residual deficits; Z79.01 Long term (current) use of anticoagulants; Z79.52 Long term (current) use of systemic steroids; Z79.899 Other long term (current) drug therapy; Z91.041 Radiographic dye allergy status
CPT/HCPCS: 93005; 99284

== ENCOUNTER → 2016-12-06 | Outpatient (CLI) | payer MEDICARE ==
[2016-12-06 10:22] LABS: Calcium 8.3 mg/dL (8.4-10.2); Potassium 4.6 mmol/L (3.5-5.1)
== END | disposition home or self-care (01) ==
LOC: LABWHC1 09:33
PROVIDERS: ATTEND Nurse Practitioner Family
DX: N18.4 Chronic kidney disease, stage 4 (severe) (principal)
CPT/HCPCS: 36415; 80048

== ENCOUNTER → 2016-12-13 | Outpatient (CLI) | payer MEDICARE ==
[2016-12-13 11:55] LABS: Calcium 8.5 mg/dL (8.4-10.2); Potassium 4.6 mmol/L (3.5-5.1)
== END | disposition home or self-care (01) ==
LOC: LABWHC1 11:14
PROVIDERS: ATTEND Nurse Practitioner Family
DX: N18.4 Chronic kidney disease, stage 4 (severe) (principal)
CPT/HCPCS: 36415; 80048

== ENCOUNTER → 2016-12-21 | Outpatient (CLI) | payer MEDICARE ==
[2016-12-21 16:16] LABS: CH 33.9; CHCM 33.4; HCT 31.5 % (39.0-53.0); HDW 2.72; HGB 10.7 gm/dL (13.0-17.5); MCH 34.7 pg (25.0-35.0); MCV 102.1 fL (80.0-100.0); Macrocytosis Slight; Mean Platelet Volume 8.2; RBC 3.08 m/uL (4.30-5.90); RDW 15.2 % (11.5-15.5); WBC 5.1 k/uL (3.8-10.6)
[2016-12-21 16:25] LABS: Calcium 8.8 mg/dL (8.4-10.2); Potassium 4.4 mmol/L (3.5-5.1); Total Bilirubin 1.5 mg/dL (0.2-1.3)
== END | disposition home or self-care (01) ==
LOC: LABWHC1 15:16
PROVIDERS: ATTEND Internal Medicine
DX: E87.8 Other disorders of electrolyte and fluid balance, not elsewhere classified (principal); R53.83 Other fatigue
CPT/HCPCS: 36415; 80053; 85027

== ENCOUNTER → 2017-01-04 | Outpatient (CLI) | payer MEDICARE ==
[2017-01-04 10:31] LABS: Aty Lym Flag Slight; CH 34.2; CHCM 31.9; HDW 2.58; HGB 8.8 gm/dL (13.0-17.5); MCH 33.7 pg (25.0-35.0); MCHC 31.3 g/dL (31.0-37.0); MCV 107.7 fL (80.0-100.0); Macrocytosis Marked; Mean Platelet Volume 11.1; RDW 15.8 % (11.5-15.5); WBC (Perox) 1.28
[2017-01-04 10:32] LABS: WBC 1.2 k/uL (3.8-10.6)
[2017-01-04 10:45] LABS: Add Differential Manual Differential
[2017-01-04 10:50] LABS: Manual Review Performed; Nucleated Red Blood Cells 0 /100 WBC (0-0); Total Cells Counted 100
[2017-01-04 11:08] LABS: Hepatitis B Surface Ag Index 0.06
[2017-01-04 11:14] LABS: Hepatitis B Core IgM Index 0.02
[2017-01-04 11:26] LABS: Hepatitis C Virus IgG Ab Negative (Negative); Hepatitis C Virus IgG Index 0.04
== END | disposition home or self-care (01) ==
LOC: LABWHC1 09:41
PROVIDERS: ATTEND Internal Medicine Nephrology
DX: E87.5 Hyperkalemia (principal); N18.5 Chronic kidney disease, stage 5
CPT/HCPCS: 36415; 80074; 85025

== ENCOUNTER → 2017-02-08 | Outpatient (CLI) | payer MEDICARE ==
--- NOTE | 2017-02-08 10:55 | XR ---
EXAMINATION TYPE: XR chest 2V DATE OF EXAM: 02/08/2017 COMPARISON: Chest x-ray November 14, 2016 HISTORY: Presurgical study TECHNIQUE: Frontal and lateral views of the chest are obtained. FINDINGS: There is right internal jugular dual-lumen dialysis catheter with tips in SVC. There is per sistent small left pleural effusion or pleural thickening and associated left basilar atelectasis. Ri ght lung remains clear. The cardiac silhouette size is stable and upper limits of normal. The osse ous structures are intact. IMPRESSION: Persistent small left pleural effusion or pleural thickening and associated left basilar atelectasis and/or scarring.
[2017-02-08 11:04] LABS: EKG EKG PERFORMED
[2017-02-08 12:02] LABS: ALT 21 U/L (21-72); AST 13 U/L (17-59); Alkaline Phosphatase 117 U/L (38-126); Anion Gap 11 mmol/L; Bilirubin, Delta 0.5 mg/dL (0.0-0.2); Blood Urea Nitrogen 31 mg/dL (9-20); Calcium 9.2 mg/dL (8.4-10.2); Carbon Dioxide 32 mmol/L (22-30); Chloride 94 mmol/L (98-107); Cholesterol 154 mg/dL (<200); GGT 111 U/L (15-73); Glucose 111 mg/dL (74-99); LDH 328 U/L (313-618); Sodium 137 mmol/L (137-145); Total Bilirubin 0.7 mg/dL (0.2-1.3)
[2017-02-08 12:04] LABS: Non-African American GFR(MDRD) 13 (>60 ml/min/1.73 sqM)
[2017-02-08 12:11] LABS: Anisocytosis Slight; Basophils % (A) 0 %; CH 35.3; CHCM 32.9; Eosinophils % (A) 0 %; HCT 31.4 % (39.0-53.0); HDW 2.79; HGB 10.2 gm/dL (13.0-17.5); Luc # (Auto) 0.23; Luc % (Auto) 2; Lymphocytes % (A) 8 %; MCH 35.1 pg (25.0-35.0); MCHC 32.6 g/dL (31.0-37.0); MCV 107.7 fL (80.0-100.0); Macrocytosis Marked; Mean Platelet Volume 8.5; Monocytes # (A) 0.5 k/uL (0-1.0); Monocytes % (A) 4 %; Neutrophils # (A) 10.3 k/uL (1.3-7.7); Neutrophils % (A) 85 %; RBC 2.91 m/uL (4.30-5.90); RDW 16.8 % (11.5-15.5); WBC 12.1 k/uL (3.8-10.6); WBC (Perox) 12.77
[2017-02-08 12:32] LABS: Hepatitis B Surface Ag Index 0.06
[2017-02-08 12:37] LABS: Hepatitis B Core IgM Index 0.02
--- NOTE | 2017-02-08 12:40 | US ---
EXAMINATION TYPE: US kidneys/renal and bladder DATE OF EXAM: 02/08/2017 COMPARISON: CT November 04, 2015 CLINICAL HISTORY: N28.1 Cyst of Kidney. Known atrophic right kidney, pt on renal transplant list EXAM MEASUREMENTS: Right Kidney: 7.7 x 3.0 x 3.3 cm Left Kidney: 10.1 x 4.6 x 4.9 cm Right Kidney: Atrophic and small in size, cyst lower pole= 1.2 x 1.1 x 1.1 cm Left Kidney: No evidence of hydro, lobulated contour as seen on previous exams, Possible hyperechoic lesion lower/lateral pole= 3.1 x 2.7 x 2.4 cm marked by technologist's is felt to reflect adjacent p rominent perinephric fat. Bladder: Suboptimal distention Bilateral Jets seen: No There is no evidence for hydronephrosis at this point in time. No shadowing nephrolithiasis is clear ly seen. No suspicious masses are identified. The urinary bladder is poorly distended and thus subo ptimally evaluated . Bilateral ureteral jets are not seen. IMPRESSION: End-stage atrophy of right kidney redemonstrated. No hydronephrosis of left kidney is seen.
[2017-02-08 12:50] LABS: Hepatitis C Virus IgG Ab Negative (Negative); Hepatitis C Virus IgG Index 0.04
[2017-02-08 13:08] LABS: Manual Review Performed; Polychromasia Present
[2017-02-08 13:42] LABS: Prostate Specific Antigen 0.96 ng/mL (0.00-4.00)
[2017-02-08 15:36] LABS: Treponemal Ab Non-Reactive (Non-Reactive)
[2017-02-08 16:34] LABS: Hepatitis B Surface Antibody Non-Reactive (Non-Reactive)
[2017-02-09 05:31] LABS: EBV - EA (IgG) <5.0 U/mL (<9.0); EBV - VCA (IgG) >750.0 U/mL (<18.0); EBV - VCA IgM <10.0 U/mL (<36.0)
[2017-02-11 08:28] LABS: Hepatits C Virus RNA, Quant <12 IU/mL (<12); LOG HCV IU/mL <1.08 (<1.08)
== END | disposition home or self-care (01) ==
LOC: RADXRMAIN 10:31
PROVIDERS: ATTEND Surgery
DX: R91.8 Other nonspecific abnormal finding of lung field (principal); N26.1 Atrophy of kidney (terminal); R07.9 Chest pain, unspecified
CPT/HCPCS: 36415; 71020; 76770; 80053; 82248; 82465; 82977; 83615; 84153; 85025; 86480; 86644; 86663; 86664; 86665; 86704; 86705; 86706; 86780; 86803; 86900; 86901; 87340; 87390; 87522; 93005

== ENCOUNTER 2017-04-10 11:26 | Day surgery (SDC) | payer MEDICARE, BC ==
[2017-04-09 08:51] VITALS: BMI 24.3
[2017-04-10 12:26] VITALS: RESP 16; TEMP 98.2
[2017-04-10] MEDS ORDERED: LACTATED RINGERS 1,000 ML IV ONE (12:47)
[2017-04-10] MEDS ORDERED: LIDOCAINE 1% 20 ML VIAL (10MG/ML) FOR IV START INTRADERMA ONE (12:48)
[2017-04-10] MEDS ORDERED: PROPOFOL 10 MG/ML 20 ML VIAL IV ONE (12:49)
--- NOTE | 2017-04-10 13:01 | P.PCN ---
Date of Procedure: 04/10/17 Procedure(s) Performed: BRIEF HISTORY: Patient is a 71-year-old, pleasant, white male, with history of end-stage liver disease on hemodialysis scheduled for an upper endoscopy as a part of evaluation of iron deficiency anemia. The patient denies any abdominal pain, rectal bleeding or melena. He states he had a colonoscopy 2 years 2 months ago that was normal.. PROCEDURE PERFORMED: Esophagogastroduodenoscopy with biopsy. PREOPERATIVE DIAGNOSIS: Iron deficiency anemia. IV sedation per anesthesia. PROCEDURE: After informed consent was obtained, the patient was brought into the endoscopy unit. IV sedation was administered by Anesthesia under continuous monitoring. Initially the Olympus GIF-140 video endoscope was inserted into the mouth. Esophagus intubated without any difficulty. It was gradually advanced into the stomach and duodenum and carefully examined. The bulb and the second part of the duodenum appeared normal. There was some blackish recommendation noted in the mucosa of the duodenum, biopsies were done from this area to evaluate for celiac disease. The scope at this time was withdrawn to the stomach, adequately insufflated with air, and upon careful examination, mucosa of the antrum, had mild gastritis and biopsies were done from this area. The body, cardia and the fundus appeared normal. The scope was then withdrawn into the esophagus. The GE junction was located at 39 cm from the incisors. The esophagus appeared normal. There were no erosions or ulcerations seen and the patient tolerated the procedure well. IMPRESSION: 1. Mild antral gastritis. 2. No evidence of esophagitis or peptic ulcer disease. RECOMMENDATIONS: The findings of this examination were discussed with the patient as well as his family. He was advised to follow with the biopsy results..
[2017-04-10 13:34] VITALS: BP 142/65; PULSE 80
== END 2017-04-10 13:36 | disposition home or self-care (01) ==
LOC: ORWHC2ENDO 11:26
PROVIDERS: ATTEND Internal Medicine Gastroenterology
DX: K29.50 Unspecified chronic gastritis without bleeding (principal); D50.9 Iron deficiency anemia, unspecified; K21.9 Gastro-esophageal reflux disease without esophagitis; J44.9 Chronic obstructive pulmonary disease, unspecified; E78.5 Hyperlipidemia, unspecified; I12.0 Hypertensive chronic kidney disease with stage 5 chronic kidney disease or end stage renal disease; N18.6 End stage renal disease; F17.200 Nicotine dependence, unspecified, uncomplicated; Z91.041 Radiographic dye allergy status; Z79.02 Long term (current) use of antithrombotics/antiplatelets; Z79.82 Long term (current) use of aspirin; Z79.899 Other long term (current) drug therapy; Z99.2 Dependence on renal dialysis; Z86.73 Personal history of transient ischemic attack (TIA), and cerebral infarction without residual deficits
CPT/HCPCS: 43239; 88305; 88313; 88342; J2704

== ENCOUNTER → 2017-06-07 | Outpatient (CLI) | payer MEDICARE, BC ==
[~2017-06-07] MED LIST: REGADENOSON 0.4 MG/5 ML SYRINGE IV ONE
--- NOTE | 2017-06-07 12:12 | NM ---
EXAMINATION TYPE: NM stress lexiscan cardiolite DATE OF EXAM: 06/07/2017 COMPARISON: NONE HISTORY: Precordial chest pain at the GE junction. TECHNIQUE: After the intravenous administration of 10.72 mCi Tc 99m Sestamibi - Cardiolite resting S PECT images acquired 45 minutes post injection. The patient received 0.4mg Lexiscan, 25 mCi Tc 99m Sestamibi - Stress images obtained 30 minutes post injection FINDINGS: Review of stress and rest SPECT images demonstrates no distinct perfusion abnormality. Gated analysi s shows normal wall motion with an estimated left ventricular ejection fraction of 55 %. IMPRESSION: No scintigraphic evidence for reversible ischemia.
--- NOTE | 2017-06-07 13:58 | EST ---
EXERCISE STRESS AGE: 72 SEX: M HT: 5'7" WT: 158 PROTOCOL: Lexiscan Cardiolite Stress Test HEART RATE REST: 75 BLOOD PRESSURE REST: 146/72 MAXIMUM HEART RATE ACHIEVED: 94 MAXIMUM BLOOD PRESSURE: 146/72 85% MPHR: 125 100% MPHR: 147 INDICATIONS: Cardiac ischemia. CLINICAL INFORMATION: This is the ECG portion of the report. Baseline heart rate 75 beats per minute. Baseline blood pressure 146/72 mmHg. Baseline 12-lead ECG showed normal sinus rhythm with normal cardiac intervals. Patient received Lexiscan infusion per protocol. There was no ECG evidence for ischemia. No arrhythmias were noted. Nuclear portion of the stress test will be reported separately. Blood pressure response was normal. No symptoms noted. MMODL / IJN: [id number] /
== END | disposition home or self-care (01) ==
LOC: RADNMMAIN 08:09
PROVIDERS: ATTEND Internal Medicine Nephrology
DX: Z03.89 Encounter for observation for other suspected diseases and conditions ruled out (principal)
CPT/HCPCS: 93017; 78452; A9500

== ENCOUNTER 2017-07-20 09:48 | Emergency (ER) | payer MEDICARE, BC ==
[2017-07-20] MEDS ORDERED: MORPHINE SULFATE 4 MG/ML SYRINGE IVP STA ×2 (10:48→12:56)
[2017-07-20] MEDS ORDERED: SODIUM CHLORIDE 0.9% 1,000 ML IV STA (10:48)
[2017-07-20] MEDS ORDERED: ONDANSETRON 4 MG/2 ML VIAL IVP STA (10:48)
[2017-07-20] MEDS ORDERED: PIPERACILLIN-TAZOBACTAM 3.375 GM in DEXTROSE/WATER 1 50ML.BAG IVPB STA (10:48)
[2017-07-20] MEDS ORDERED: BARIUM SULFATE 450 ML ORAL.SUSP BOTTLE PO PRN (10:50)
--- NOTE | 2017-07-20 12:11 | CT ---
EXAMINATION TYPE: CT abdomen pelvis wo con DATE OF EXAM: 07/20/2017 COMPARISON: Previous study dated 11/04/2015. HISTORY: complains of low back pain CT DLP: 370.5 mGycm Automated exposure control for dose reduction was used. FINDINGS: There is some dependent atelectasis at the left lung base. There is no pleural or pericardi al fluid. The heart is upper limits of normal in size. Within the abdomen, the liver, spleen and gallbladder are normal. Both adrenal glands are normal. There is atrophy of both kidneys, worse on the right than the left. There is significant stranding ar ound the right kidney. This was present previously. There is a somewhat linear, 5.5 mm calcification in the mid polar region of the left kidney. This is similar to a previous finding. I suspect this may be vascular. The pancreas appears unremarkable. There is extensive vascular calcification present. There is mild ectasia of the infrarenal abdominal aorta. There is no significant retroperitoneal, iliac or inguinal adenopathy. There is a few scattered diverticula along the left side of the colon. There is no radiographic evide nce of diverticulitis. The appendix is not visualized. Small bowel loops are normal. There is no free fluid and no free air identified. There is extensive degenerative disc disease, facet arthropathy and hypertrophic spondylosis within t he spine. IMPRESSION: 1. BILATERAL RENAL ATROPHY, WORSE ON THE RIGHT THAN THE LEFT. 2. STABLE CALCIFICATION INVOLVING THE LEFT KIDNEY, BELIEVED TO BE VASCULAR. 3. MINIMAL, UNCOMPLICATED DIVERTICULOSIS OF THE LEFT SIDE OF THE COLON. 4. DEGENERATIVE CHANGES WITHIN THE SPINE.
[2017-07-20 12:30] LABS: Anisocytosis Slight; Basophils % (A) 0 %; Eosinophils % (A) 0 %; HCT 31.6 % (39.0-53.0); HGB 10.5 gm/dL (13.0-17.5); Lymphocytes # (A) 1.1 k/uL (1.0-4.8); Lymphocytes % (A) 10 %; MCHC 33.1 g/dL (31.0-37.0); MCV 102.8 fL (80.0-100.0); Macrocytosis Moderate; Mean Platelet Volume 8.5; Monocytes # (A) 0.5 k/uL (0-1.0); Monocytes % (A) 5 %; Neutrophils # (A) 8.5 k/uL (1.3-7.7); Neutrophils % (A) 83 %; Platelet Count 160 k/uL (150-450); RBC 3.07 m/uL (4.30-5.90); RDW 16.5 % (11.5-15.5); WBC 10.2 k/uL (3.8-10.6)
--- NOTE | 2017-07-20 12:34 | ED ---
Abdominal Pain HPI - General Chief Complaint: Abdominal Pain Stated Complaint: unable to walk, back pain, abdominal pain Time Seen by Provider: 07/20/17 10:32 Source: patient, family Mode of arrival: wheelchair Limitations: physical limitation - History of Present Illness Initial Comments: 72 years old male has history of renal failure on dialysis had abdominal pain for last 1-2 days pain is on the left lower quadrant area he just got done with his dialysis this morning. Now been off-and-on is in the left lower quadrant area he denies any nausea no vomiting last bowel movement was yesterday denies any fever no chills he has no history of diverticulitis. Review of system is unremarkable otherwise - Related Data Home Medications Medication Instructions Recorded Confirmed Lovastatin [Mevacor] 20 mg PO HS 04/22/14 07/20/17 Terazosin [Hytrin] 2 mg PO HS 04/22/14 07/20/17 Clopidogrel [Plavix] 75 mg PO DAILY 07/29/15 07/20/17 Famotidine [Pepcid] 20 mg PO BID 07/29/15 07/20/17 Metoprolol Tartrate [Lopressor] 25 mg PO BID 07/29/15 07/20/17 hydrALAZINE HCL [Apresoline] 50 mg PO BID 04/09/17 07/20/17 Previous Rx's Medication Instructions Recorded Amoxic-Pot Clav 875-125Mg 1 tab PO Q12HR #20 tablet 07/20/17 [Augmentin 875-125] traMADol HCL [Ultram] 50 mg PO Q12H PRN #30 tab 07/20/17 Allergies Allergy/AdvReac Type Severity Reaction Status Date / Time Iodinated Contrast- Oral and Allergy Anaphylaxis Verified 07/20/17 12:20 IV Dye [Iodinated Contrast Media - IV Dye] Review of Systems ROS Statement: Those systems with pertinent positive or pertinent negative responses have been documented in the HPI. ROS Other: All systems not noted in ROS Statement are negative. Past Medical History Past Medical History: Chest Pain / Angina, COPD, CVA/TIA, Dialysis, Hyperlipidemia, Hypertension, Renal Disease Additional Past Medical History / Comment(s): Bleeding stomach ulcers, LOVELOCK both ears worse on left ear, bilateral cataracts. HEMODIALYSIS-TUE, VOLODYMYR, SAT History of Any Multi-Drug Resistant Organisms: None Reported Past Surgical History: Tonsillectomy Additional Past Surgical History / Comment(s): left carotid endartectomy, left ear surgery for diseased bone. DIALYSIS PORT, COLONOSCOPY, EGD, Past Anesthesia/Blood Transfusion Reactions: No Reported Reaction Past Psychological History: No Psychological Hx Reported Smoking Status: Current some day smoker Past Alcohol Use History: None Reported Past Drug Use History: None Reported - Past Family History Mother Family Medical History: Cancer Additional Family Medical History / Comment(s): colon Father Additional Family Medical History / Comment(s): Sister(s) Family Medical History: Cancer, Congestive Heart Failure (CHF) General Exam - General Exam Comments Initial Comments: General: The patient is awake and alert, in no distress, and does not appear acutely ill. Skin: Skin is warm and dry and no rashes or lesions are noted. Eye: Pupils are equal, round and reactive to light, extra-ocular movements are intact; there is normal conjunctiva bilaterally. Ears, nose, mouth and throat: There are moist mucous membranes and no oral lesions. Neck: The neck is supple, there is no tenderness or JVD. Cardiovascular: There is a regular rate and rhythm. No murmur, rub or gallop is appreciated. Respiratory: To auscultation bilateral, no wheezing no rhonchi no distress respiratory bustos noticed Gastrointestinal: Under in the left lower quadrant area, positive bowel sounds noticed mild guarding Back: There is no tenderness to palpation in the midline. There is no obvious deformity. Musculoskeletal: Normal ROM, no tenderness, There is no pedal edema. There is no calf tenderness or swelling. No cords were appreciated. Neurological: CN II-XII intact, Cranial nerves III through XII are intact. There are no obvious motor or sensory deficits. Coordination appears grossly intact. Speech is normal. Psychiatric: Cooperative, appropriate mood & affect, normal judgment. Limitations: physical limitation Course Vital Signs 07/20/17 10:07 Temperature 97.4 F L Pulse Rate 82 Respiratory 16 Rate Blood Pressure 151/66 O2 Sat by Pulse 97 Oximetry - Reevaluation(s) Reevaluation #1: She is reassessed at term 12:30, CBC, compressive metabolic panel or not within normal range she does have a history of kidney failure his creatinine is actually looking better CT's pointed out no diverticulitis but clinically he is tender with the Cipro Flagyl for the next 7 days and follow-up with his family doctor or return to the ER if symptoms get worse 07/20/17 12:52 Medical Decision Making - Lab Data Result diagrams: 07/20/17 11:18 07/20/17 11:18 Lab Results 07/20/17 07/20/17 Range/Units 11:18 11:18 WBC 10.2 (3.8-10.6) k/uL RBC 3.07 L (4.30-5.90) m/uL Hgb 10.5 L (13.0-17.5) gm/dL Hct 31.6 L (39.0-53.0) % MCV 102.8 H (80.0-100.0) fL MCH 34.0 (25.0-35.0) pg MCHC 33.1 (31.0-37.0) g/dL RDW 16.5 H (11.5-15.5) % Plt Count 160 (150-450) k/uL Neutrophils % 83 % Lymphocytes % 10 % Monocytes % 5 % Eosinophils % 0 % Basophils % 0 % Neutrophils # 8.5 H (1.3-7.7) k/uL Lymphocytes # 1.1 (1.0-4.8) k/uL Monocytes # 0.5 (0-1.0) k/uL Eosinophils # 0.0 (0-0.7) k/uL Basophils # 0.0 (0-0.2) k/uL Anisocytosis Slight Macrocytosis Moderate Sodium 141 (137-145) mmol/L Potassium 4.2 (3.5-5.1) mmol/L Chloride 94 L (98-107) mmol/L Carbon Dioxide 31 H (22-30) mmol/L Anion Gap 16 mmol/L BUN 16 (9-20) mg/dL Creatinine 2.81 H (0.66-1.25) mg/dL Est GFR (MDRD) Af Amer 27 (>60 ml/min/1.73 sqM) Est GFR (MDRD) Non-Af 22 (>60 ml/min/1.73 sqM) Glucose 118 H (74-99) mg/dL Calcium 10.2 (8.4-10.2) mg/dL Total Bilirubin 0.8 (0.2-1.3) mg/dL AST 20 (17-59) U/L ALT 18 L (21-72) U/L Alkaline Phosphatase 168 H (38-126) U/L Total Protein 8.3 H (6.3-8.2) g/dL Albumin 4.7 (3.5-5.0) g/dL Amylase 56 (30-110) U/L Lipase 99 (23-300) U/L Disposition Clinical Impression: Left lower quadrant pain, Diverticulitis Disposition: HOME SELF-CARE Condition: Good Instructions: Abdominal Pain (ED) Prescriptions: Amoxic-Pot Clav 875-125Mg [Augmentin 875-125] 1 tab PO Q12HR #20 tablet traMADol HCL [Ultram] 50 mg PO Q12H PRN #30 tab PRN Reason: Pain Referrals: Saeed Maddox MD [Primary Care Provider] - 1-2 days
[2017-07-20 12:42] LABS: Albumin 4.7 g/dL (3.5-5.0); Calcium 10.2 mg/dL (8.4-10.2); Potassium 4.2 mmol/L (3.5-5.1); Total Bilirubin 0.8 mg/dL (0.2-1.3); Total Protein 8.3 g/dL (6.3-8.2)
--- NOTE | 2017-07-20 12:44 | XR ---
EXAMINATION TYPE: XR KUB , 2 VIEWS DATE OF EXAM ORDERED: 07/20/2017 HISTORY: abdominal pain. COMPARISON: Previous study dated 05/03/2012. FINDINGS: There is blunting of the left CP angle. The heart is mildly enlarged. Within the abdomen, the abdominal gas pattern is nonspecific with nondistended air-filled loops of la rge and small bowel throughout the abdomen. There is no evidence of obstruction or free air. No unusu al calcifications are seen. IMPRESSION: 1. NO ACUTE INTRA-ABDOMINAL ABNORMALITY. 2. CARDIOMEGALY. 3. LEFT-SIDED PLEURAL REACTION, LIKELY REPRESENTING PLEURAL FLUID.
[2017-07-20] MEDS ORDERED: MORPHINE SULFATE 4 MG/ML SYRINGE IVP ONE (12:55)
[2017-07-20 13:27] VITALS: BP 128/58; PULSE 80; RESP 12; TEMP 96.9
== END 2017-07-20 14:00 | disposition home or self-care (01) ==
LOC: EC 09:48
DX: K57.92 Diverticulitis of intestine, part unspecified, without perforation or abscess without bleeding (principal); I12.9 Hypertensive chronic kidney disease with stage 1 through stage 4 chronic kidney disease, or unspecified chronic kidney disease; N18.9 Chronic kidney disease, unspecified; E78.5 Hyperlipidemia, unspecified; F17.200 Nicotine dependence, unspecified, uncomplicated; Z99.2 Dependence on renal dialysis; Z86.73 Personal history of transient ischemic attack (TIA), and cerebral infarction without residual deficits; Z79.01 Long term (current) use of anticoagulants; Z79.899 Other long term (current) drug therapy; Z91.041 Radiographic dye allergy status
CPT/HCPCS: 36415; 80053; 82150; 83690; 85025; 74018; 74176; 99284; 96365; 96366 ×2; 96375 ×2; 96376 ×2; J2270; J2405; J2543

== ENCOUNTER → 2018-07-22 | Outpatient (CLI) | payer MEDICARE, BC ==
--- NOTE | 2018-07-22 16:16 | XR ---
EXAMINATION TYPE: XR chest 2V DATE OF EXAM: 07/22/2018 COMPARISON: NONE HISTORY: Cough and shortness of breath. TECHNIQUE: Frontal and lateral views of the chest are obtained. FINDINGS: Right infrahilar opacity and trace left pleural effusion are present. Remainder the lungs are clear. Cardiomediastinal silhouette is mildly enlarged. Osseous structures are generally deminera lized with moderate degenerative changes of the thoracic spine. IMPRESSION: Right infrahilar opacity may represent atelectasis or pneumonia. Follow-up to resolution is recommended to exclude underlying pulmonary nodule.
== END ==
LOC: RADXRMAIN 15:15
PROVIDERS: ATTEND Internal Medicine
DX: R91.8 Other nonspecific abnormal finding of lung field (principal)
CPT/HCPCS: 71046

== ENCOUNTER → 2020-01-29 | Outpatient (CLI) | payer MEDICARE, BC ==
--- NOTE | 2020-01-29 23:09 | CT ---
EXAMINATION TYPE: CT chest wo con DATE OF EXAM: 01/29/2020 COMPARISON: None HISTORY: cough, SOB. hx of COPD. CT DLP: 266.3 mGycm, Automated exposure control for dose reduction was used. CONTRAST: Performed injected with 0 mL of Isovue 300. TECHNIQUE: Axial images were obtained at 5 mm thick sections. Reconstructed images are reviewed on [employer] computer in the coronal plane. FINDINGS: Portion of the thyroid visualized is normal. There is a peripheral nodule right upper lobe measuring 0.9 cm. Series 4 image 16. Some mild peribronchial thickening appears to be in the lower lobes bilaterally. Small right pleural effusion is present minimal left pleural effusion is present No enlarged mediastinal or hilar adenopathy is evident. There are scattered shotty lymph nodes prese nt throughout the mediastinum. The ascending aorta diameter at the level of the main pulmonary artery is 3.3 cm. The main pulmonary artery diameter at the bifurcation is 2.7 cm. Coronary artery calcifi cations present Limited CT sections are obtained through the upper abdomen. Abdomen is essentially unremarkable. IMPRESSIONS: 1. Ill-defined 0.9 cm nodule lateral right upper lobe. 2. Suggestion of mild peribronchial thickening present lower lobes bilaterally. 3. Shotty lymphadenopathy within the mediastinum. Enlarged nodes are not identified.
== END | disposition home or self-care (01) ==
LOC: RADCTMAIN 19:17
PROVIDERS: ATTEND Internal Medicine Critical Care Medicine
DX: R91.1 Solitary pulmonary nodule (principal); R59.1 Generalized enlarged lymph nodes; J44.9 Chronic obstructive pulmonary disease, unspecified
CPT/HCPCS: 71250

== ENCOUNTER → 2020-02-10 | Outpatient (CLI) | payer MEDICARE, BC | END | disposition home or self-care (01) | LOC: CPPFTMAIN 07:19 | PROVIDERS: ATTEND Internal Medicine Critical Care Medicine | DX: J44.9 Chronic obstructive pulmonary disease, unspecified (principal) | CPT/HCPCS: 94060; 94726; 94729 ==

== ENCOUNTER → 2020-02-26 | Outpatient (CLI) | payer MEDICARE, BC ==
--- NOTE | 2020-02-26 14:15 | PE ---
EXAMINATION TYPE: PET CT fusion skull to thigh DATE OF EXAM: 02/26/2020 COMPARISON: Chest CT January 29, 2020. CT abdomen and pelvis July 20, 2017 and older CTs. HISTORY: Solitary pulmonary nodule, abnormal CT. TECHNIQUE: Following the intravenous administration of 12.4 mCi of F-18 FDG, whole body images are p erformed from the skull base to the midthigh. Images are reviewed on the computer in the coronal, ax ial, and sagittal planes. Reconstructed rotating images are created on independent workstation and r eviewed on the computer. A noncontrast CT is performed in conjunction with the PET scan. SCAN: Initial Scan FINDINGS: SKULL BASE AND NECK: No areas of suspicious hypermetabolic uptake. CHEST, MEDIASTINUM, AND HILAR REGION: Persistent background mild to moderate biapical scarring with right-sided bleb formation. Just below this there is stable peripheral 10 x 9 mm groundglass nodule a xial image 74, it is noted ametabolic. Stable trace left greater than right pleural fluid collection s or effusions. No areas of suspicious hypermetabolic uptake noted. ABDOMEN AND PELVIS: No areas of suspicious hypermetabolic uptake. Asymmetric diminished right-sided e xcretion is noted. Mild uptake anterior right thigh region axial image 230 could reflect muscular inf lammation. OSSEOUS STRUCTURES: No areas of suspicious hypermetabolic uptake. OTHER CT: Bilateral subareolar gynecomastia redemonstrated. Moderate left and mild right-sided calcif ied plaque carotid bulb level. Partial visualization of right upper extremity vascular graft. Pericar dial calcification is seen. There is fairly severe coronary artery calcification which is noted marke r for underlying coronary artery disease. There is cardiomegaly with moderate biatrial dilatation. Contracted gallbladder with surrounding fluid. Nonspecific moderate to severe perinephric fat strandi ng, asymmetric increased atrophy to the right kidney. Trace peritoneal dependent ascites. Sigmoid col onic diverticula. Prostate gland upper limits of normal in size. Multilevel spurring in the spine. Moderate calcified plaque in the abdominal aorta extends into branc h vessels. IMPRESSION: No suspicious hypermetabolic uptake to suggest malignancy. Stable 10 x 9 mm groundglass n odule. Follow-up CT in 6-12 months advised to reassess as per Fleischner Society recommendations.
== END | disposition home or self-care (01) ==
LOC: RADPETMAIN 11:47
PROVIDERS: ATTEND Internal Medicine Critical Care Medicine
DX: R91.1 Solitary pulmonary nodule (principal)
CPT/HCPCS: 78815; A9552

== ENCOUNTER → 2020-03-16 | Outpatient (CLI) | payer MEDICARE, BC ==
[2020-03-16 22:03] LABS: Folate, Serum 3.6 ng/mL
[2020-03-16 22:13] LABS: % Iron Saturation 36.58 (15.00-50.00); Albumin 4.2 g/dL (3.80-4.90); Albumin/Globulin Ratio 1.4 (1.60-3.17); Bilirubin, Conjugated 0.4 mg/dL (0.20-0.40); Bilirubin,Unconjugated 0.2 mg/dL; Chol/HDL Ratio 2.92; LDL Cholesterol,Calculated 58.8 mg/dL (0.0-131.0); PSA Annual Screen 0.9 ng/mL (0.0-4.0); Total Bilirubin 0.6 mg/dL (0.2-1.2); Total Protein 7.2 g/dL (6.2-8.2); Uric Acid 4.5 mg/dL (3.7-8.7); VLDL Calculation 10.2 mg/dL (5.00-40.00)
[2020-03-16 23:19] LABS: Hemoglobin A1C 5.5 % (4.0-6.0)
== END | disposition home or self-care (01) ==
LOC: LABWHC1 09:45
PROVIDERS: ATTEND Family Medicine
DX: Z00.00 Encounter for general adult medical examination without abnormal findings (principal); E78.5 Hyperlipidemia, unspecified; E03.9 Hypothyroidism, unspecified; N40.0 Benign prostatic hyperplasia without lower urinary tract symptoms; D63.1 Anemia in chronic kidney disease; Z79.899 Other long term (current) drug therapy; N18.9 Chronic kidney disease, unspecified
CPT/HCPCS: 80061; 80076; 84443; 82607; 82550; 82746; 83540; 83550; 83615; 83735; 84550; 82306; 83970; 83036; 36415; G0103

== ENCOUNTER → 2020-03-30 | Outpatient (CLI) | payer MEDICARE, BC ==
--- NOTE | 2020-03-30 13:21 | US ---
EXAMINATION TYPE: US scrotum with doppler. Grayscale and color Doppler Duplex imaging performed of t he scrotum. DATE OF EXAM: 03/30/2020 COMPARISON: US 11/04/2015 CLINICAL HISTORY: R93.8, R10.9, N50.819, R09.89. EXAM MEASUREMENTS: TESTICLES: Right Testicle: 3.4 x 1.8 x 2.9 cm Left Testicle: 3.5 x 1.5 x 2.6 cm EPIDIDYMIS HEAD: Right Epididymis: 1.0 cm Left Epididymis: 1.2 cm Doppler performed to assess for testicular vascularity; good bilateral color flow and waveforms are s een. There is no evidence of testicular torsion. Presence of hydroceles: Small amount of fluid visualized on the right Presence of varicoceles: Yes, bilaterally Echogenic foci visualized superior to the right testicle measuring 0.9 cm. Bilateral varicoceles. Cys tic area laterally left testicle 0.4 cm IMPRESSION: 1. No suspicious changes suggest torsion. 2. Small cyst on the cortex of the inferior left testicle. 3. Echogenic material with posterior shadowing along the anterior inferior pole right testicle or scr otal wall of uncertain etiology
--- NOTE | 2020-03-30 13:25 | US ---
EXAMINATION TYPE: US carotid duplex BILAT DATE OF EXAM: 03/30/2020 COMPARISON: US 11/11/2009 CLINICAL HISTORY: R93.8, R10.9, N50.819, R09.89. EXAM MEASUREMENTS: RIGHT: Peak Systolic Velocity (PSV) cm/sec ----- Right CCA: 88.5 ----- Right ICA: 127.6 ----- Right ECA: 132.2 ICA/CCA ratio: 1.4 RIGHT: End Diastole cm/sec ----- Right CCA: 11.6 ----- Right ICA: 18.4 ----- Right ECA: 0 LEFT: Peak Systolic Velocity (PSV) cm/sec ----- Left CCA: 98.3 ----- Left ICA: 164.7 ----- Left ECA: 203.2 ICA/CCA ratio: 1.7 LEFT: End Diastole cm/sec ----- Left CCA: 13.6 ----- Left ICA: 23.0 ----- Left ECA: 0 VERTEBRALS (direction of flow): Right Vertebral: Antegrade Left Vertebral: Antegrade Rhythm: Normal Moderate/severe amount of plaque visualized bilaterally. Elevated velocities visualized in the right bulb, right proximal ICA, left ICA, and left ECA IMPRESSION: 1. Atheromatous plaquing at the right common carotid artery bulb with some extension into the proxima l right internal carotid artery contributing to moderate stenosis between 50 and 69%. 2. Atheromatous plaquing within the left carotid bulb with plaquing within the proximal left internal carotid artery and turbulent flow. This has mild to moderate narrowing just over 50%. Criteria for Assigning % of Stenosis / Diameter reduction (Estimation based on the indirect measurements of the internal carotid artery velocities (ICA PSV). 1. Normal (no stenosis)=ICA PSV < 125 cm/s: ratio < 2.0: ICA EDV<40 cm/s. 2. Less than 50% stenosis=ICA PSV < 125 cm/s: ratio < 2.0: ICA EDV<40 cm/s. 3. 50 to 69% stenosis=ICA PSV of 125 to 230 cm/s: ration 2.0 ? 4.0: ICA EDV 40-100 cm/s. 4. Greater than 70% stenosis to near occlusion= ICA PSV > 230 cm/s: ratio > 4.0: ICA EDV > 100 cm/s. 5. Near occlusion= ICA PSV velocities may be low or undetectable: variable ratio and ICA EDV. 6. Total occlusion=unable to detect flow.
--- NOTE | 2020-03-30 13:28 | US ---
EXAMINATION TYPE: US abdomen complete DATE OF EXAM: 03/30/2020 COMPARISON: PET CT 02/26/2020 CLINICAL HISTORY: R93.8, R10.9, N50.819, R09.89. Abd pain. Difficult exam due to overlying bowel gas. Patient cannot take a breath in and hold. EXAM MEASUREMENTS: Liver Length: 15.2 cm Gallbladder Wall: 0.9cm CBD: 0.4 cm Spleen: 12.9 cm Right Kidney: 7.1 x 3.0 x 2.9 cm Left Kidney: 8.5 x 3.8 x 4.4 cm Pancreas: Tail obscured by overlying bowel gas, visualized portions show no abnormality Liver: Heterogeneous Gallbladder: Wall is thickened with tiny amount of pericholecystic fluid visualized Evidence for sonographic Herrera's sign: no CBD: wnl as visualized Spleen: wnl Right Kidney: Atrophic. Possible cyst visualized measuring 1cm Left Kidney: Atrophic. Possible cyst visualized measuring 1.3 Upper IVC: wnl Abd Aorta: Atherosclerotic changes visualized. Obscured by bowel gas IMPRESSION: 1. Thick walled gallbladder minimal pericholecystic fluid. Findings are suggestive for acute cholecys titis. 2. Small bilateral renal cysts
== END | disposition home or self-care (01) ==
LOC: RADUSWWP 06:53
PROVIDERS: ATTEND Family Medicine
DX: N44.2 Benign cyst of testis (principal); R93.811 Abnormal radiologic findings on diagnostic imaging of right testicle; N28.1 Cyst of kidney, acquired; K82.8 Other specified diseases of gallbladder; I65.23 Occlusion and stenosis of bilateral carotid arteries
CPT/HCPCS: 76700; 76870; 93880; 93975

== ENCOUNTER → 2020-07-06 | Outpatient (CLI) | payer MEDICARE, BC ==
--- NOTE | 2020-07-06 15:14 | CT ---
EXAMINATION TYPE: CT abdomen pelvis wo con DATE OF EXAM: 07/06/2020 COMPARISON: 07/20/2017 HISTORY: abdominal pain X [address] DLP: 381.3 mGycm Examination of the solid and hollow viscera is limited given the lack of contrast. FINDINGS: LUNG BASES: No evidence for nodule. No evidence for infiltrate. LIVER/GB: There is evidence of hepatomegaly. The gallbladder is unremarkable. No space-occupying hepa tic lesion. PANCREAS: No pancreatic mass identified. No inflammatory process seen. SPLEEN: There is evidence of splenomegaly with craniocaudal measurement of 14.6 cm. No intrasplenic l esion identified. No intrasplenic lesions seen. ADRENALS: No adrenal nodules identified. No evidence for thickening. KIDNEYS: Renal vascular calcifications. Hypoattenuating renal lesions may reflect cysts. No nephrolit hiasis. No hydronephrosis. Renal atrophic changes noted bilaterally. Chronic perinephric stranding id entified. BOWEL: Appendix has a normal appearance. No evidence of bowel obstruction. No inflammatory process. Lymph nodes: No evidence for adenopathy greater than 1 cm. Abdominal aorta: Atheromatous changes seen. No evidence for aneurysm. Genital organs: No significant abnormality. Other: No significant abnormality. IMPRESSION: 1. Splenomegaly. 2. Renal atrophic changes. 3. Hepatomegaly.
== END | disposition home or self-care (01) ==
LOC: RADCTMAIN 10:52
PROVIDERS: ATTEND Family Medicine
DX: R16.2 Hepatomegaly with splenomegaly, not elsewhere classified (principal); N26.1 Atrophy of kidney (terminal)
CPT/HCPCS: 74176; 80053; 81001; 82150; 82746; 83690; 84153; 85025; 86334; 87086

== ENCOUNTER → 2020-11-23 | Outpatient (CLI) | payer MEDICARE, BC ==
--- NOTE | 2020-11-24 07:42 | XR ---
EXAMINATION TYPE: XR tibia fibula RT DATE OF EXAM: 11/23/2020 CLINICAL HISTORY: Rule out osteomyelitis TECHNIQUE: Two views of the right tibia and fibula are obtained. COMPARISON: None. FINDINGS: There is no acute fracture or dislocation seen in the right tibia or fibula. Vascular calc ifications are present. IMPRESSION: No definite plain radiographic evidence for osteomyelitis, however, MRI is by far more sensitive.
== END | disposition home or self-care (01) ==
LOC: RADXRMAIN 16:15
PROVIDERS: ATTEND Family Medicine
DX: Z03.89 Encounter for observation for other suspected diseases and conditions ruled out (principal)

== ENCOUNTER → 2022-03-03 | Outpatient (CLI) | payer MEDICARE, BC ==
--- NOTE | 2022-03-04 13:54 | PE ---
EXAMINATION TYPE: PET CT fusion skull to thigh DATE OF EXAM: 03/03/2022 CLINICAL INDICATION:Male, 76 years old with history of R91.1 Lung nodule; TECHNIQUE: Following the intravenous administration of 11.4 mCi of F-18 FDG, whole body images are performed from the skull base to the midthigh. Images are reviewed on the computer in the coronal, a xial, and sagittal planes. Reconstructed rotating images are created on independent workstation and reviewed on the computer. A non-contrast CT is performed in conjunction with the PET scan. Glucose level 84 mg/dL COMPARISON: CT abdomen 07/06/2020, chest 01/21/2020, PET/CT 02/26/2020, FINDINGS: Mediastinal SUV mean is 1.2. Hepatic parenchyma SUV mean is 1.4. SKULL BASE AND NECK: Bilateral lower neck lymph nodes with increased FDG activity: * Max SUV on the right 5.7 and the largest measuring 7 mm in short axis more conglomerate apical lym ph nodes max SUV 6.7. * Max SUV on the left 4.9 and the largest measuring 9 mm in short axis. * Left clavicular lymph node max SUV 3.8 measuring 4 mm in short axis. CHEST, MEDIASTINUM, AND HILAR REGION: * Right upper lobe pulmonary mass measuring 4.3 x 3.7 x 4.3 and Max SUV 10.5. * Right upper lobe pulmonary nodule Max SUV 0.7 measuring 8 mm. Stable from 01/21/2020 * Subtle right pleural thickening with increased FDG activity max SUV 1.6 (series 3 image 119). * Right pulmonary hilum lymph nodes max SUV 7.8. Mediastinal lymph nodes with increased radiotracer activity. Examples include: * Right high paratracheal max SUV 9.3 measuring 11 mm. * Prevascular space max SUV 7.9 measuring 10 mm. * Subcarinal max SUV 8.8 measuring 16 mm * AP window/10 L location max SUV 9.5 measuring 2.2 x 2.7 cm. * Right low paratracheal max SUV 10.6 measuring 1.8 x 2.5 cm. ABDOMEN AND PELVIS: Scattered subcapsular areas of increased FDG activity when compared to the more d eep liver which is seen along the liver capsule without focal lesion definitively visualized. Example includes left hepatic lobe 5.7. Right hepatic lobe max SUV 3.9. OSSEOUS STRUCTURES: No suspicious FDG activity. OTHER CT: Atherosclerosis of the arterial vasculature and carotid bifurcations. Trace right pleural e ffusion. Mild pulmonary vascular congestion most pronounced on the right. Pericardial calcifications noted. The heart is mildly enlarged for size. Atrophic kidneys bilaterally. Colonic diverticulosis. M ultilevel disc degeneration changes IMPRESSION: 1. Findings compatible with right lung primary malignancy with metastatic disease to the mediastinum , lower neck/supraclavicular lymph nodes. 2. Subtle right pleural thickening with mild increased FDG activity suspicious for pleural metastati c deposit. 3. Additional right upper lobe pulmonary nodule seen back in 2020 is stable without increased FDG ac tivity. 4. Nonspecific curvilinear peripheral liver ill-defined FDG activity. Consider MRI liver mass protoc ol with IV contrast, attention on follow-up imaging.
== END | disposition home or self-care (01) ==
LOC: RADPETMAIN 06:58
PROVIDERS: ATTEND Internal Medicine Critical Care Medicine
DX: R91.1 Solitary pulmonary nodule (principal)
CPT/HCPCS: 78815; A9552

== ENCOUNTER 2022-03-21 23:27 | Inpatient (IN) | payer MEDICARE, BC ==
[2022-03-21] MEDS ORDERED: IPRATROPIUM-ALBUTEROL 3 ML NEB INHALATION STA ×2 (23:58→23:59)
[2022-03-21] MEDS ORDERED: methylPREDNISolone SOD SUCCI 125 MG/2 ML VIAL IV STA (23:58)
[2022-03-22] MEDS ORDERED: AZITHROMYCIN 500 MG in SODIUM CHLORIDE 0.9% 250 ML IVPB STA (00:14)
--- NOTE | 2022-03-22 00:42 | XR ---
EXAMINATION TYPE: XR chest 2V DATE OF EXAM: 03/22/2022 COMPARISON: 06/21/2021 HISTORY: Difficulty breathing TECHNIQUE: 2 view FINDINGS: There is patchy airspace infiltrate in the left mid and lower lung field. There is pleural thickening left lateral chest wall. There is a 5 cm rounded masslike infiltrate in the right mid lung . No heart failure. There is some blunting left costophrenic angle also present on the old exam. IMPRESSION: Bilateral pulmonary infiltrates are essentially new compared to old exam. There is increa sed pleural thickening left lateral chest wall compared to the exam. Follow-up recommended. No obviou s heart failure.
[2022-03-22 01:15] LABS: Albumin 4.4 g/dL (3.5-5.0); Calcium 9.3 mg/dL (8.4-10.2); Magnesium 2.1 mg/dL (1.6-2.3); Potassium 4.9 mmol/L (3.5-5.1); Total Bilirubin 2.5 mg/dL (0.2-1.3); Total Protein 8.1 g/dL (6.3-8.2)
[2022-03-22 01:17] LABS: Basophils # (A) 0.1 k/uL (0-0.2); Basophils % (A) 1 %; Eosinophils % (A) 0 %; HCT 30.6 % (39.0-53.0); Hypochromasia Slight; Lymphocytes # (A) 1.1 k/uL (1.0-4.8); Lymphocytes % (A) 14 %; MCH 40.9 pg (25.0-35.0); MCHC 35.8 g/dL (31.0-37.0); MCV 114.3 fL (80.0-100.0); Macrocytosis Marked; Mean Platelet Volume 10.1; Monocytes # (A) 0.6 k/uL (0-1.0); Monocytes % (A) 8 %; Neutrophils # (A) 5.7 k/uL (1.3-7.7); Neutrophils % (A) 74 %; Platelet Count 143 k/uL (150-450); RBC 2.68 m/uL (4.30-5.90); RDW 14.6 % (11.5-15.5); WBC 7.7 k/uL (3.8-10.6)
[2022-03-22] MEDS ORDERED: IPRATROPIUM-ALBUTEROL 3 ML NEB INHALATION STA (01:20)
[2022-03-22] MEDS ORDERED: ACETAMINOPHEN TAB 500 MG TAB PO PRN (01:34)
[2022-03-22] MEDS ORDERED: ASPIRIN 81 MG PO STA (01:34)
[2022-03-22] MEDS ORDERED: IPRATROPIUM-ALBUTEROL 3 ML NEB INHALATION PRN (01:34)
[2022-03-22] MEDS ORDERED: ACETAMINOPHEN TAB 500 MG TAB PO STA (01:34)
[2022-03-22 01:45] LABS: Polychromasia Present
[2022-03-22 01:49] LABS: INR 1.2 (<1.2); Partial Thromboplastin Time 29.9 sec (22.0-30.0); Prothrombin Time 12.6 sec (9.0-12.0)
--- NOTE | 2022-03-22 02:14 | ED ---
General Adult HPI - General Chief complaint: Shortness of Breath Stated complaint: Weakness, Lethargic, Lack of appetite Time Seen by Provider: 03/21/22 23:44 Source: patient, family, RN notes reviewed, old records reviewed Mode of arrival: wheelchair Limitations: no limitations - History of Present Illness Initial comments: Patient is a 76-year-old male with past medical history remarkable for stage IV lung cancer, COPD, ESRD on hemodialysis, prior CVA, hypertension who presents emergency Department complaining of weakness, worsening shortness of breath over the last few days. He did receive his normal run of dialysis on Saturday, however since that time has been sleeping at home with minimal oral intake. Patient's was concerned as he does have a history of pneumonia. Patient's been having a productive cough of yellow-green sputum. Endorses mild shortness of breath. He is not normally on oxygen at home but is being evaluated for it. Denies any known fevers at home. Denies any nausea or vomiting or abdominal pain. Denies chest pain. His no other acute complaints at this time. Presents for further evaluation at this time. Vaccinated for COVID-19.Patient has no plans for chemo radiation per family and per patient. Has not undergone any chemoradiation as of yet. Lung Cancer seems to have spread to the liver as well as mediastinal lymph nodes. - Related Data Home Medications Medication Instructions Recorded Confirmed Lovastatin [Mevacor] 20 mg PO HS 04/22/14 07/20/17 Terazosin [Hytrin] 2 mg PO HS 04/22/14 07/20/17 Clopidogrel [Plavix] 75 mg PO DAILY 07/29/15 07/20/17 Famotidine [Pepcid] 20 mg PO BID 07/29/15 07/20/17 Metoprolol Tartrate [Lopressor] 25 mg PO BID 07/29/15 07/20/17 hydrALAZINE HCL [Apresoline] 50 mg PO BID 04/09/17 07/20/17 Previous Rx's Medication Instructions Recorded Amoxic-Pot Clav 875-125Mg 1 tab PO Q12HR #20 tablet 07/20/17 [Augmentin 875-125] traMADol HCL [Ultram] 50 mg PO Q12H PRN #30 tab 07/20/17 Allergies Allergy/AdvReac Type Severity Reaction Status Date / Time Iodinated Contrast Media Allergy Anaphylaxis Verified 07/20/17 12:20 [Iodinated Contrast Media - IV Dye] Review of Systems ROS Statement: Those systems with pertinent positive or pertinent negative responses have been documented in the HPI. Review of Systems: CONST: Denies fever EYES: Denies blurry vision ENT: Endorses nasal congestion C/V: Denies Chest pain RESP: Endorses cough GI: Denies abdominal pain : Denies dysuria SKIN: Denies rash. MSK: Denies joint pain. NEURO: Denies headache ROS Other: All systems not noted in ROS Statement are negative. Past Medical History Past Medical History: Chest Pain / Angina, COPD, CVA/TIA, Dialysis, Hyperlipidemia, Hypertension, Renal Disease Additional Past Medical History / Comment(s): Bleeding stomach ulcers, TIMBI-SHA SHOSHONE both ears worse on left ear, bilateral cataracts. HEMODIALYSIS-TUE, VOLODYMYR, SAT History of Any Multi-Drug Resistant Organisms: None Reported Past Surgical History: Tonsillectomy Additional Past Surgical History / Comment(s): left carotid endartectomy, left ear surgery for diseased bone. DIALYSIS PORT, COLONOSCOPY, EGD, Past Anesthesia/Blood Transfusion Reactions: No Reported Reaction Past Psychological History: No Psychological Hx Reported Smoking Status: Current every day smoker Past Alcohol Use History: None Reported Past Drug Use History: None Reported - Past Family History Mother Family Medical History: Cancer Additional Family Medical History / Comment(s): colon Father Additional Family Medical History / Comment(s): Sister(s) Family Medical History: Cancer, Congestive Heart Failure (CHF) General Exam - General Exam Comments Initial Comments: General: Presents in mild respiratory distress with mild increased work of breathing. HEAD: Normal with no signs of head trauma. EYES: PERRLA, EOMI, conjunctiva normal, no discharge. ENT: Hearing grossly intact, normal oropharynx. RESPIRATORY: Bilateral end expiratory wheezing. Hypoxic on room air to 86%. Mild increased work of breathing. C/V: Regular rate and rhythm. S1 and S2 auscultated, no edema, peripheral pulses 2+ and intact throughout. Patient's right upper extremity AV fistula has a palpable thrill and audible bruit. ABD: Abd is soft, nontender, nondistended EXT: Normal range of motion, no obvious deformity SKIN: No rashes or lesions observed on exposed skin. NEURO: Alert and oriented 4. No focal deficits. Limitations: no limitations Course Vital Signs 10/19/22 10/20/22 10/20/22 23:32 00:07 00:25 Temperature 100.0 F H Pulse Rate 63 105 H 110 H Respiratory 26 H Rate Blood Pressure 167/61 O2 Sat by Pulse 86 L Oximetry 03/22/22 03/22/22 03/22/22 00:45 01:26 01:42 Temperature 100.2 F H Pulse Rate 103 H 96 97 Respiratory 20 20 Rate Blood Pressure 156/60 O2 Sat by Pulse 95 Oximetry 03/22/22 03/22/22 03/22/22 01:56 02:36 02:53 Temperature 98.1 F Pulse Rate 98 88 Respiratory 18 Rate Blood Pressure 135/55 O2 Sat by Pulse 95 Oximetry Medical Decision Making - Medical Decision Making Based on the patient's presentation and physical exam, I do believe that he has a COPD exacerbation strong suspicion for pneumonia as well. We will obtain cardiopulmonary as well as infectious workup for the patient this time. He was placed on nasal cannula and is saturating well on 2-4 L. He'll be given multiple breathing treatments as well as started on IV steroids and IV antibiotics. Blood cultures were obtained and sent. He was in agreement this plan. We'll monitor and continuous cardiac monitoring. EKG showed no signs of acute ischemia. Chest x-ray shows multifocal pneumonia in bilateral lungs. Laboratory studies are remarkable for a chronic anemia with hemoglobin of 11. Patient has an elevated BUN/creatinine the setting of ESRD on hemodialysis. Electrode is otherwise unremarkable. Lactic acid is slightly elevated 3.0 which is likely secondary to his hypoxia that he has been experiencing and we will watch it. I do not believe it is secondary to sepsis. BNP is elevated but he does have a history of ESRD on hemodialysis. I strongly suspect chest x-ray findings are pneumonia as he is having a productive cough of a greenish yellow sputum. He also has a low-grade fever. Troponin is elevated in the setting of ESRD. Mild elevation we'll continue to trend. He was given an aspirin. Influenza testing is negative.Patient's COVID-19 positive, which does reflect his chest x-ray findings with the bilateral pneumonia. Patient is already on steroids for his COPD exacerbation.We'll continue antibiotics for now despite the COVID-19 positive diagnosis. On reevaluation, patient is feeling improved, however would still like to admit him to the hospital at this time. He was in agreement this plan. Family was in agreement this plan. I spoke with the admitting physician, Dr. Ramirez accepted the patient. Consulted patient's nuclear unit operator Dr. Miller is placed. Consult to nephrology was also places the patient is due for dialysis tomorrow. We'll continue to trend the troponin. - Lab Data Result diagrams: 03/22/22 00:10 03/22/22 00:10 Lab Results 03/22/22 03/22/22 03/22/22 Range/Units 00:10 00:10 00:10 WBC 7.7 (3.8-10.6) k/uL RBC 2.68 L (4.30-5.90) m/uL Hgb 11.0 L (13.0-17.5) gm/dL Hct 30.6 L (39.0-53.0) % MCV 114.3 H (80.0-100.0) fL MCH 40.9 H (25.0-35.0) pg MCHC 35.8 (31.0-37.0) g/dL RDW 14.6 (11.5-15.5) % Plt Count 143 L (150-450) k/uL MPV 10.1 Neutrophils % 74 % Lymphocytes % 14 % Monocytes % 8 % Eosinophils % 0 % Basophils % 1 % Neutrophils # 5.7 (1.3-7.7) k/uL Lymphocytes # 1.1 (1.0-4.8) k/uL Monocytes # 0.6 (0-1.0) k/uL Eosinophils # 0.0 (0-0.7) k/uL Basophils # 0.1 (0-0.2) k/uL Manual Slide Review Performed Polychromasia Present Hypochromasia Slight Macrocytosis Marked A PT 12.6 H (9.0-12.0) sec INR 1.2 H (<1.2) APTT 29.9 (22.0-30.0) sec Sodium 130 L (137-145) mmol/L Potassium 4.9 (3.5-5.1) mmol/L Chloride 91 L (98-107) mmol/L Carbon Dioxide 27 (22-30) mmol/L Anion Gap 12 mmol/L BUN 33 H (9-20) mg/dL Creatinine 6.60 H (0.66-1.25) mg/dL Est GFR (CKD-EPI)AfAm 9 (>60 ml/min/1.73 sqM) Est GFR (CKD-EPI)NonAf 7 (>60 ml/min/1.73 sqM) Glucose 119 H (74-99) mg/dL Plasma Lactic Acid Deejay (0.7-2.0) mmol/L Calcium 9.3 (8.4-10.2) mg/dL Magnesium 2.1 (1.6-2.3) mg/dL Total Bilirubin 2.5 H (0.2-1.3) mg/dL AST 85 H (17-59) U/L ALT 26 (4-49) U/L Alkaline Phosphatase 226 H (38-126) U/L Troponin I (0.000-0.034) ng/mL NT-Pro-B Natriuret Pep pg/mL Total Protein 8.1 (6.3-8.2) g/dL Albumin 4.4 (3.5-5.0) g/dL Coronavirus (PCR) (Not Detectd) Influenza Type A RNA (Not Detectd) Influenza Type B (PCR) (Not Detectd) 03/22/22 03/22/22 03/22/22 Range/Units 00:10 00:10 00:10 WBC (3.8-10.6) k/uL RBC (4.30-5.90) m/uL Hgb (13.0-17.5) gm/dL Hct (39.0-53.0) % MCV (80.0-100.0) fL MCH (25.0-35.0) pg MCHC (31.0-37.0) g/dL RDW (11.5-15.5) % Plt Count (150-450) k/uL MPV Neutrophils % % Lymphocytes % % Monocytes % % Eosinophils % % Basophils % % Neutrophils # (1.3-7.7) k/uL Lymphocytes # (1.0-4.8) k/uL Monocytes # (0-1.0) k/uL Eosinophils # (0-0.7) k/uL Basophils # (0-0.2) k/uL Manual Slide Review Polychromasia Hypochromasia Macrocytosis PT (9.0-12.0) sec INR (<1.2) APTT (22.0-30.0) sec Sodium (137-145) mmol/L Potassium (3.5-5.1) mmol/L Chloride (98-107) mmol/L Carbon Dioxide (22-30) mmol/L Anion Gap mmol/L BUN (9-20) mg/dL Creatinine (0.66-1.25) mg/dL Est GFR (CKD-EPI)AfAm (>60 ml/min/1.73 sqM) Est GFR (CKD-EPI)NonAf (>60 ml/min/1.73 sqM) Glucose (74-99) mg/dL Plasma Lactic Acid Deejay 3.0 H* (0.7-2.0) mmol/L Calcium (8.4-10.2) mg/dL Magnesium (1.6-2.3) mg/dL Total Bilirubin (0.2-1.3) mg/dL AST (17-59) U/L ALT (4-49) U/L Alkaline Phosphatase (38-126) U/L Troponin I 0.045 H* (0.000-0.034) ng/mL NT-Pro-B Natriuret Pep 66118 pg/mL Total Protein (6.3-8.2) g/dL Albumin (3.5-5.0) g/dL Coronavirus (PCR) (Not Detectd) Influenza Type A RNA (Not Detectd) Influenza Type B (PCR) (Not Detectd) 03/22/22 03/22/22 Range/Units 00:50 01:50 WBC (3.8-10.6) k/uL RBC (4.30-5.90) m/uL Hgb (13.0-17.5) gm/dL Hct (39.0-53.0) % MCV (80.0-100.0) fL MCH (25.0-35.0) pg MCHC (31.0-37.0) g/dL RDW (11.5-15.5) % Plt Count (150-450) k/uL MPV Neutrophils % % Lymphocytes % % Monocytes % % Eosinophils % % Basophils % % Neutrophils # (1.3-7.7) k/uL Lymphocytes # (1.0-4.8) k/uL Monocytes # (0-1.0) k/uL Eosinophils # (0-0.7) k/uL Basophils # (0-0.2) k/uL Manual Slide Review Polychromasia Hypochromasia Macrocytosis PT (9.0-12.0) sec INR (<1.2) APTT (22.0-30.0) sec Sodium (137-145) mmol/L Potassium (3.5-5.1) mmol/L Chloride (98-107) mmol/L Carbon Dioxide (22-30) mmol/L Anion Gap mmol/L BUN (9-20) mg/dL Creatinine (0.66-1.25) mg/dL Est GFR (CKD-EPI)AfAm (>60 ml/min/1.73 sqM) Est GFR (CKD-EPI)NonAf (>60 ml/min/1.73 sqM) Glucose (74-99) mg/dL Plasma Lactic Acid Deejay (0.7-2.0) mmol/L Calcium (8.4-10.2) mg/dL Magnesium (1.6-2.3) mg/dL Total Bilirubin (0.2-1.3) mg/dL AST (17-59) U/L ALT (4-49) U/L Alkaline Phosphatase (38-126) U/L Troponin I (0.000-0.034) ng/mL NT-Pro-B Natriuret Pep pg/mL Total Protein (6.3-8.2) g/dL Albumin (3.5-5.0) g/dL Coronavirus (PCR) Detected A (Not Detectd) Influenza Type A RNA Not Detected (Not Detectd) Influenza Type B (PCR) Not Detected (Not Detectd) - EKG Data -: EKG Interpreted by Me EKG Comments: 12-lead Electrocardiogram Interpretation Note EKG was reviewed and interpreted by myself. 12-lead ECG performed at 0013 is interpreted by me as revealing sinus tachycardia at a rate of 102 beats per minute. Williams is normal. NH interval is 176 ms, QRS duration is 86 ms, QTc is 414 ms.. There were no ST or T wave abnormalities to suggest myocardial ischemia or injury. R wave progression across the precordium was satisfactory. By my interpretation this EKG is non-diagnostic for acute ischemia. There is a decent amount of baseline artifact secondary to motion artifact. Disposition Clinical Impression: Pneumonia, Febrile illness, COPD exacerbation, ESRD on hemodialysis, Hypoxia, COVID-19 Disposition: ADMITTED IP TO THIS HOSP Condition: Stable Time of Disposition: 02:10
[2022-03-22] MEDS ORDERED: NALOXONE 0.4 MG/ML 1 ML VIAL IV PRN (02:19)
[2022-03-22] MEDS ORDERED: FUROSEMIDE 10 MG/ML 4 ML VIAL IV SCH (08:00)
[2022-03-22] MEDS ORDERED: methylPREDNISolone SOD SUCCI 40 MG/ML 1 ML VIAL IV SCH (09:00)
[2022-03-22] MEDS: hydrALAZINE HCL 50 MG TAB PO SCH ×2 (09:11→20:38)
[2022-03-22] MEDS: CLOPIDOGREL 75 MG TAB PO SCH (09:11)
[2022-03-22] MEDS: METOPROLOL TARTRATE 25 MG TAB PO SCH ×2 (09:11→20:38)
[2022-03-22] MEDS: HEPARIN SODIUM,PORCINE/PF 5,000 UNIT/0.5 ML SYRINGE SQ SCH ×2 (09:13→20:37)
--- NOTE | 2022-03-22 13:13 | P.CNPUL ---
History of Present Illness Consult date: 03/22/22 Requesting physician: Ant Ramirez Reason for consult: pneumonia, lung mass Chief complaint: Weakness, shortness of breath History of present illness: This is a 76-year-old white male with history of severe COPD, Gold stage III COPD, history of end-stage renal disease, on hemodialysis, previous CVA, patient was last seen by Dr. montague on 03/12/22, he was following up with Dr. Kimbrough for his COPD, and he was recently discovered to have a suspicious right upper lobe mass highly suspicious for bronchogenic carcinoma. PET scan done on March 04 showed diffuse disease likely metastatic disease with primary cancer being in the right upper lobe. Apparently the patient was advised by Dr. Kimbrough to have biopsy of a right neck lesion that was noted on the PET scan, and this was supposedly done by interventional radiology. However the patient did not show up for his biopsy, and apparently he stated he does not want anything done, no diagnoses and no treatment according to him. And he has not been back to the office since he saw Dr. montague on 03/12/2022. The patient presented now to the ER yesterday complaining of shortness of breath, weakness, fatigue, and he had a bit of a productive cough, yellow-green phlegm. No fevers at home, no nausea no vomiting, no abdominal pain, no dysuria and no frequency no urgency. Patient is supposedly vaccinated for COVID-19. And his chest x-ray showed evidence of interstitial infiltrates, right upper lobe mass, highly suspicious for bronchogenic carcinoma, patient was found to have positive COVID-19 PCR. His pro-calcitonin level was also a bit elevated at 1.84, he had a relatively normal CBC, no leukocytosis, BNP level was 52,200, and obviously he had abnormal renal profile with a BUN of 53 creatinine 6.6, patient is on hemodialysis. Con sidering all these findings, patient was admitted and this consult was initiated. I reviewed the PET scan which was done recently, it is highly suspicious for primary lung malignancy with metastatic disease to the mediastinum, lower neck, supraclavicular lymph nodes, and abnormal activity was noted in the liver suggestive of possible liver metastasis. The PET scan is also suspicious for possible pleural metastatic deposits at any rate patient has been advised in the past to undergo tissue diagnosis and apparently he declined. He still feels the same way, and does not want anything done at this point. As a matter of fact he is asking if he could go home. Patient is now on 2 L nasal cannula, O2 sats is 96%. And his chest x-ray is basically suggestive of fluid overload, underlying pneumonia is not entirely ruled out, however felt to be less likely especially with elevated BNP level nonetheless the patient will be given antibiotics, his pro-calcitonin level is slightly elevated, and he will be placed on the COVID-19 cocktail. Review of Systems Constitutional: Denies fever chills he does feel generally weak. HEENT: Negative Pulmonary: As noted in HPI Cardiac: Negative GI: Negative Genitourinary: Negative Musculoskeletal: Weakness mostly Hematologic: No clotting bleeding or bruising Psychiatric: No symptoms of active depression Neurologic: Negative Skin: Negative Endocrine: Negative Past Medical History Past Medical History: Chest Pain / Angina, COPD, CVA/TIA, Dialysis, Hyperlipidemia, Hypertension, Renal Disease Additional Past Medical History / Comment(s): Bleeding stomach ulcers, SAMISH both ears worse on left ear, bilateral cataracts. HEMODIALYSIS-TUE, VOLODYMYR, SAT History of Any Multi-Drug Resistant Organisms: None Reported Past Surgical History: Tonsillectomy Additional Past Surgical History / Comment(s): left carotid endartectomy, left ear surgery for diseased bone. DIALYSIS PORT, COLONOSCOPY, EGD, Past Anesthesia/Blood Transfusion Reactions: No Reported Reaction Past Psychological History: No Psychological Hx Reported Smoking Status: Current every day smoker Past Alcohol Use History: None Reported Additional Past Alcohol Use History / Comment(s): SMOKES < 1/2 PPD FOR AT LEAST 50 YEARS Past Drug Use History: None Reported - Past Family History Mother Family Medical History: Cancer Additional Family Medical History / Comment(s): colon Father Additional Family Medical History / Comment(s): Sister(s) Family Medical History: Cancer, Congestive Heart Failure (CHF) Medications and Allergies Home Medications Medication Instructions Recorded Confirmed Type Famotidine [Pepcid] 20 mg PO BID 07/29/15 03/22/22 History Gabapentin [Neurontin] 200 mg PO HS 03/22/22 03/22/22 History Lidocaine-Prilocaine Cream [Emla 1 applic TOPICAL DIRECTED 03/22/22 03/22/22 History Cream 2.5%/2.5%] Lovastatin [Mevacor] 40 mg PO HS 03/22/22 03/22/22 History Metoprolol Succinate [Toprol XL] 50 mg PO DAILY 03/22/22 03/22/22 History Terazosin HCl 2 mg PO DIRECTED 03/22/22 03/22/22 History Torsemide [Demadex] 80 mg PO DAILY 03/22/22 03/22/22 History Allergies Allergy/AdvReac Type Severity Reaction Status Date / Time Iodinated Contrast Media Allergy Anaphylaxis Verified 03/22/22 09:16 [Iodinated Contrast Media - IV Dye] Physical Exam Vitals: Vital Signs Temp Pulse Pulse Resp BP BP Pulse Ox 03/22/22 12:49 97.6 F 69 18 119/52 96 03/22/22 08:30 99.0 F 88 20 159/68 95 03/22/22 03:48 99.2 F 89 18 132/62 99 03/22/22 02:53 88 18 135/55 95 03/22/22 02:36 98.1 F 03/22/22 01:56 98 03/22/22 01:42 97 03/22/22 01:26 100.2 F H 96 20 156/60 03/22/22 00:45 103 H 20 95 03/22/22 00:25 110 H 03/22/22 00:07 105 H 03/21/22 23:32 100.0 F H 63 26 H 167/61 86 L Intake and Output 03/21/22 03/22/22 03/22/22 22:59 06:59 14:59 Intake Total 240 0 Output Total 0 Balance 240 0 Intake: Oral 240 0 Output: Urine 0 Other: Weight 68 kg Physical Exam: Revealed 76-year-old white male in no distress. On 2 L nasal cannula Head: Atraumatic, normocephalic. HEENT:[Neck is supple.] [No neck masses.] [No thyromegaly.] [No JVD.] Chest: [Symmetrical chest expansion fine crackles at the bases. Cardiac Exam: [Normal S1 and S2, no S3 gallop, no murmur.] Abdomen: [Soft, nontender, no megaly, no rebound, no guarding, normal bowel sounds.] Extremities: [No clubbing, no edema, no cyanosis. Right forearm AV fistula noted for hemodialysis.] Neurological Exam: Alert and oriented 3, no gross focal neurologic deficits. Psychiatric: Depressed mood, normal affect, normal mental status examination. Skin: No rashes. Results - Laboratory Findings CBC and BMP: 03/22/22 00:10 03/22/22 00:10 PT/INR, D-dimer PT 12.6 sec (9.0-12.0) H 03/22/22 00:10 INR 1.2 (<1.2) H 03/22/22 00:10 D-Dimer 0.71 mg/L FEU (<0.60) H 03/22/22 08:03 Abnormal lab findings: Abnormal Labs 03/22/22 03/22/22 03/22/22 00:10 00:10 00:10 RBC 2.68 L Hgb 11.0 L Hct 30.6 L MCV 114.3 H MCH 40.9 H Plt Count 143 L Macrocytosis Marked A PT 12.6 H INR 1.2 H D-Dimer Sodium 130 L Chloride 91 L BUN 33 H Creatinine 6.60 H Glucose 119 H Plasma Lactic Acid Deejay Total Bilirubin 2.5 H AST 85 H Alkaline Phosphatase 226 H Troponin I Procalcitonin Coronavirus (PCR) 03/22/22 03/22/22 03/22/22 00:10 00:10 01:50 RBC Hgb Hct MCV MCH Plt Count Macrocytosis PT INR D-Dimer Sodium Chloride BUN Creatinine Glucose Plasma Lactic Acid Deejay 3.0 H* Total Bilirubin AST Alkaline Phosphatase Troponin I 0.045 H* Procalcitonin Coronavirus (PCR) Detected A 03/22/22 03/22/22 03/22/22 04:30 07:28 08:03 RBC Hgb Hct MCV MCH Plt Count Macrocytosis PT INR D-Dimer 0.71 H Sodium Chloride BUN Creatinine Glucose Plasma Lactic Acid Deejay Total Bilirubin AST Alkaline Phosphatase Troponin I 0.059 H* 0.063 H* Procalcitonin Coronavirus (PCR) 03/22/22 08:03 RBC Hgb Hct MCV MCH Plt Count Macrocytosis PT INR D-Dimer Sodium Chloride BUN Creatinine Glucose Plasma Lactic Acid Deejay Total Bilirubin AST Alkaline Phosphatase Troponin I Procalcitonin 1.84 H Coronavirus (PCR) - Diagnostic Findings Chest x-ray: image reviewed (As noted in HPI, there is evidence of right upper lobe mass highly suspicious for bronchogenic carcinoma and suspect interstitial infiltrates/edema bilaterally.) Assessment and Plan Assessment: Impression: Acute hypoxic respiratory failure, multifactorial. Patient had O2 saturation on presentation to ER at 86% on room air. And he had an abnormal chest x-ray showing interstitial edema, interstitial infiltrates, right upper lobe mass, and COPD. All are contributing to the patient's acute hypoxic respiratory failure. Acute fluid overload, secondary to end-stage renal disease, patient was found to have significantly elevated BNP level. Possible acute diastolic congestive heart failure. Right upper lobe mass, with metastasis based on recent PET scan, highly suspicious for metastatic bronchogenic carcinoma. Acute COVID-19 infection, vaccinated, incidental finding, strongly doubt COVID- 19 pneumonia. History of severe underlying COPD, presently inactive. End-stage renal disease, on hemodialysis. Questionable compliance with dialysis. Dyslipidemia. History of CVA/TIA Benign essential hypertension History of bleeding gastric ulcer. Recommendation: Continue present supportive care measures Continue bronchodilators. Continue hemodialysis. Continue antibiotics to Rocephin and Zithromax. I truly doubt pneumonia however considering his slightly elevated pro calcitonin level, I would suggest we continue with antibiotics for now. Continue COVID-19 cocktail. Patient should have outpatient follow-up with Dr. Montague to decide on Tissue diagnosis obviously patient will not have lung biopsy when he has COVID-19 infection. Patient will be given Decadron. Patient is not a candidate for Remdesivir, and definitely not a candidate for Paxlovid Assuming the patient is not accepting any further treatment or diagnosis for his metastatic lung cancer, I believe patient should be considered for hospice. This is to be decided upon by his admitting physician, the patient and his Time with Patient: Greater than 30
--- NOTE | 2022-03-22 13:22 | P.NPCON ---
History of Present Illness - Reason for Consult end stage renal disease - History of Present Illness Patient is a 76-year-old male with history of COPD, end-stage renal disease on hemodialysis, previous CVA and history of lung mass highly suspicious for bronchogenic carcinoma with underlying possible diffuse metastatic disease in the lungs. He is admitted to the hospital complaints of shortness of breath Patient tested positive for COVID-19 PCR No complaints of nausea vomiting or diarrhea Patient is maintained on a Saturday schedule for hemodialysis. Review of Systems As per HPI, other systems negative Past Medical History Past Medical History: Chest Pain / Angina, COPD, CVA/TIA, Dialysis, Hyperlipidemia, Hypertension, Renal Disease Additional Past Medical History / Comment(s): Bleeding stomach ulcers, WAINWRIGHT both ears worse on left ear, bilateral cataracts. HEMODIALYSIS-SAT, SAT, SAT History of Any Multi-Drug Resistant Organisms: None Reported Past Surgical History: Tonsillectomy Additional Past Surgical History / Comment(s): left carotid endartectomy, left ear surgery for diseased bone. DIALYSIS PORT, COLONOSCOPY, EGD, Past Anesthesia/Blood Transfusion Reactions: No Reported Reaction Past Psychological History: No Psychological Hx Reported Smoking Status: Current every day smoker Past Alcohol Use History: None Reported Additional Past Alcohol Use History / Comment(s): SMOKES < 1/2 PPD FOR AT LEAST 50 YEARS Past Drug Use History: None Reported - Past Family History Mother Family Medical History: Cancer Additional Family Medical History / Comment(s): colon Father Additional Family Medical History / Comment(s): Sister(s) Family Medical History: Cancer, Congestive Heart Failure (CHF) Medications and Allergies Home Medications Medication Instructions Recorded Confirmed Type Famotidine [Pepcid] 20 mg PO BID 07/29/15 03/22/22 History Gabapentin [Neurontin] 200 mg PO HS 03/22/22 03/22/22 History Lidocaine-Prilocaine Cream [Emla 1 applic TOPICAL DIRECTED 03/22/22 03/22/22 History Cream 2.5%/2.5%] Lovastatin [Mevacor] 40 mg PO HS 03/22/22 03/22/22 History Metoprolol Succinate [Toprol XL] 50 mg PO DAILY 03/22/22 03/22/22 History Terazosin HCl 2 mg PO DIRECTED 03/22/22 03/22/22 History Torsemide [Demadex] 80 mg PO DAILY 03/22/22 03/22/22 History Allergies Allergy/AdvReac Type Severity Reaction Status Date / Time Iodinated Contrast Media Allergy Anaphylaxis Verified 03/22/22 09:16 [Iodinated Contrast Media - IV Dye] Physical Exam Vitals: Vital Signs Temp Pulse Pulse Resp BP BP Pulse Ox 03/22/22 12:49 97.6 F 69 18 119/52 96 03/22/22 08:30 99.0 F 88 20 159/68 95 03/22/22 03:48 99.2 F 89 18 132/62 99 03/22/22 02:53 88 18 135/55 95 03/22/22 02:36 98.1 F 03/22/22 01:56 98 03/22/22 01:42 97 03/22/22 01:26 100.2 F H 96 20 156/60 03/22/22 00:45 103 H 20 95 03/22/22 00:25 110 H 03/22/22 00:07 105 H 03/21/22 23:32 100.0 F H 63 26 H 167/61 86 L Intake and Output 03/21/22 03/22/22 03/22/22 22:59 06:59 14:59 Intake Total 240 0 Output Total 0 Balance 240 0 Intake: Oral 240 0 Output: Urine 0 Other: Weight 68 kg Patient is awake, comfortable, not in any acute distress Examination of the heart S1 and S2 Examination of the lungs decreased breath sounds at the bases with basilar crackles Abdomen is soft nontender Examination of the lower extremity shows no evidence of edema BUDGET ACCOUNTANT exam grossly intact Results - Lab Results Most recent lab results Calcium 9.3 mg/dL (8.4-10.2) 03/22/22 00:10 Magnesium 2.1 mg/dL (1.6-2.3) 03/22/22 00:10 03/22/22 00:10 03/22/22 00:10 Assessment and Plan Assessment: 1. End-stage renal disease on hemodialysis on a Saturday schedule 2. Mild volume overload 3. Right lung mass suspicious for metastatic lung cancer with metastases to liver. Patient was scheduled for biopsy however he is currently refusing any further workup 4. CK D mineral bone disorder 5. Hypertension with CK D5 Plan: Hemodialysis today. UF 2-2.5 L as tolerated Treatment for with covid pneumonia as per pulmonary Maintain phosphate binders Thank you for the consultation. We will continue to follow the patient with you during his hospitalization.
[2022-03-22] MEDS: ZINC SULFATE 220 MG CAP PO SCH (14:31)
[2022-03-22] MEDS: ASCORBIC ACID 500 MG TAB PO SCH ×2 (14:31→20:37)
[2022-03-22] MEDS: CHOLECALCIFEROL 25 MCG (1000 IU) TABLET PO SCH (14:31)
[2022-03-22] MEDS: dexAMETHasone 2 MG TAB PO SCH (14:31)
[2022-03-22] MEDS: ALBUTEROL HFA INHALER INHALATION PRN (19:21)
[2022-03-22] MEDS: ATORVASTATIN 10 MG TAB PO SCH (20:37)
[2022-03-22] MEDS: AZITHROMYCIN 500 MG in SODIUM CHLORIDE 0.9% 250 ML IVPB SCH (20:38)
[2022-03-22 21:59] LABS: Appearance,Urine Clear (Clear); Bilirubin,Urine Negative (Negative); Blood,Urine Negative (Negative); Color,Urine Yellow; Glucose,Urine (UA) Negative (Negative); Hyaline Casts,Urine 4 /lpf (0-2); Ketones,Urine Negative (Negative); Leukocyte Esterase,Urine Negative (Negative); Mucus,Urine Rare /hpf; Nitrite,Urine Negative (Negative); Protein,Urine 2+ (Negative); RBC,Urine 1 /hpf (0-5); Specific Gravity,Urine 1.014 (1.001-1.035); WBC,Urine 4 /hpf (0-5)
--- NOTE | 2022-03-22 22:56 | P.HPIM ---
History of Present Illness H&P Date: 03/22/22 76-year-old male with past medical history remarkable for stage IV lung cancer, COPD, ESRD on hemodialysis, prior CVA, hypertension who presents emergency Department complaining of weakness, worsening shortness of breath over the last few days. He did receive his normal run of dialysis on Saturday, however since that time has been sleeping at home with minimal oral intake. Patient's was concerned as he does have a history of pneumonia. Patient's been having a productive cough of yellow-green sputum. Endorses mild shortness of breath. He is not normally on oxygen at home but is being evaluated for it. Denies any known fevers at home. Denies any nausea or vomiting or abdominal pain. Denies chest pain. His no other acute complaints at this time. Presents for further evaluation at this time. Vaccinated for COVID-19.Patient has no plans for chemo radiation per family and per patient. Has not undergone any chemoradiation as of yet. Lung Cancer seems to have spread to the liver as well as mediastinal lymph nodes. Past Medical History Past Medical History: Chest Pain / Angina, COPD, CVA/TIA, Dialysis, Hyperlipidemia, Hypertension, Renal Disease Additional Past Medical History / Comment(s): Bleeding stomach ulcers, ELEM both ears worse on left ear, bilateral cataracts. HEMODIALYSIS-SAT, SAT, SAT History of Any Multi-Drug Resistant Organisms: None Reported Past Surgical History: Tonsillectomy Additional Past Surgical History / Comment(s): left carotid endartectomy, left ear surgery for diseased bone. DIALYSIS PORT, COLONOSCOPY, EGD, Past Anesthesia/Blood Transfusion Reactions: No Reported Reaction Past Psychological History: No Psychological Hx Reported Smoking Status: Current every day smoker Past Alcohol Use History: None Reported Additional Past Alcohol Use History / Comment(s): SMOKES < 1/2 PPD FOR AT LEAST 50 YEARS Past Drug Use History: None Reported - Past Family History Mother Family Medical History: Cancer Additional Family Medical History / Comment(s): colon Father Additional Family Medical History / Comment(s): Sister(s) Family Medical History: Cancer, Congestive Heart Failure (CHF) Medications and Allergies Home Medications Medication Instructions Recorded Confirmed Type Famotidine [Pepcid] 20 mg PO BID 07/29/15 03/22/22 History Gabapentin [Neurontin] 200 mg PO HS 03/22/22 03/22/22 History Lidocaine-Prilocaine Cream [Emla 1 applic TOPICAL DIRECTED 03/22/22 03/22/22 History Cream 2.5%/2.5%] Lovastatin [Mevacor] 40 mg PO HS 03/22/22 03/22/22 History Metoprolol Succinate [Toprol XL] 50 mg PO DAILY 03/22/22 03/22/22 History RX: Terazosin HCl 2 mg PO DIRECTED 03/22/22 03/22/22 History Torsemide [Demadex] 80 mg PO DAILY 03/22/22 03/22/22 History Allergies Allergy/AdvReac Type Severity Reaction Status Date / Time Iodinated Contrast Media Allergy Anaphylaxis Verified 03/22/22 09:16 [Iodinated Contrast Media - IV Dye] Physical Exam Osteopathic Statement: *. No significant issues noted on an osteopathic structural exam other than those noted in the History and Physical/Consult. Vitals: Vital Signs Temp Pulse Pulse Resp BP BP Pulse Ox 03/22/22 15:45 97.6 F 72 18 138/63 97 03/22/22 14:39 97.8 F 72 20 122/58 03/22/22 12:49 97.6 F 69 18 119/52 96 03/22/22 08:30 99.0 F 88 20 159/68 95 03/22/22 03:48 99.2 F 89 18 132/62 99 03/22/22 02:53 88 18 135/55 95 03/22/22 02:36 98.1 F 03/22/22 01:56 98 03/22/22 01:42 97 03/22/22 01:26 100.2 F H 96 20 156/60 03/22/22 00:45 103 H 20 95 03/22/22 00:25 110 H 03/22/22 00:07 105 H 03/21/22 23:32 100.0 F H 63 26 H 167/61 86 L Intake and Output 03/22/22 03/22/22 03/22/22 06:59 14:59 22:59 Intake Total 240 300 Output Total 0 3500 Balance 240 -3200 Intake: Oral 240 0 Hemodialysis 300 Output: Urine 0 0 Stool 0 Urine/Stool Mix 0 Emesis 0 Hemodialysis 3500 Other: # Voids 0 # Bowel Movements 0 Weight 68 kg GENERAL: This is a 76-year-old in some distress at the time of examination. Pleasant and cooperative. HEENT: Head is atraumatic, normocephalic. Pupils are equal, round, and reactive to light. Sclerae anicteric. Conjunctivae are clear. Mucus membranes of the mouth is dry. RESPIRATORY: Lungs are diminished bilateral with crackles in the bases. CARDIOVASCULAR: Regular rate and rhythm. GASTROINTESTINAL: No distention noted. Abdomen soft and round. Normal active bowel sounds auscultated x 4 quadrants. No pain or tenderness noted upon palpation. INTEGUMENTARY: No cyanosis. No jaundice. No rashes noted. No cellulitis noted. EXTREMITIES: 2+ peripheral pulses. No evidence of peripheral edema. No calf tenderness noted. NEUROLOGIC: Cranial nerves II-XII intact. PSYCHIATRIC: Awake, alert, and oriented X 3. Appropriate affect. Intact judgement and insight. Results CBC & Chem 7: 03/22/22 00:10 03/22/22 00:10 Labs: Abnormal Lab Results - Last 24 Hours (Table) 03/22/22 03/22/22 03/22/22 Range/Units 00:10 00:10 00:10 RBC 2.68 L (4.30-5.90) m/uL Hgb 11.0 L (13.0-17.5) gm/dL Hct 30.6 L (39.0-53.0) % MCV 114.3 H (80.0-100.0) fL MCH 40.9 H (25.0-35.0) pg Plt Count 143 L (150-450) k/uL Macrocytosis Marked A PT 12.6 H (9.0-12.0) sec INR 1.2 H (<1.2) D-Dimer (<0.60) mg/L FEU Sodium 130 L (137-145) mmol/L Chloride 91 L (98-107) mmol/L BUN 33 H (9-20) mg/dL Creatinine 6.60 H (0.66-1.25) mg/dL Glucose 119 H (74-99) mg/dL Plasma Lactic Acid Deejay (0.7-2.0) mmol/L Total Bilirubin 2.5 H (0.2-1.3) mg/dL AST 85 H (17-59) U/L Alkaline Phosphatase 226 H (38-126) U/L Troponin I (0.000-0.034) ng/mL Procalcitonin (0.02-0.09) ng/mL Urine Protein (Negative) Hyaline Casts (0-2) /lpf Urine Mucus (None) /hpf Coronavirus (PCR) (Not Detectd) 03/22/22 03/22/22 03/22/22 Range/Units 00:10 00:10 01:50 RBC (4.30-5.90) m/uL Hgb (13.0-17.5) gm/dL Hct (39.0-53.0) % MCV (80.0-100.0) fL MCH (25.0-35.0) pg Plt Count (150-450) k/uL Macrocytosis PT (9.0-12.0) sec INR (<1.2) D-Dimer (<0.60) mg/L FEU Sodium (137-145) mmol/L Chloride (98-107) mmol/L BUN (9-20) mg/dL Creatinine (0.66-1.25) mg/dL Glucose (74-99) mg/dL Plasma Lactic Acid Deejay 3.0 H* (0.7-2.0) mmol/L Total Bilirubin (0.2-1.3) mg/dL AST (17-59) U/L Alkaline Phosphatase (38-126) U/L Troponin I 0.045 H* (0.000-0.034) ng/mL Procalcitonin (0.02-0.09) ng/mL Urine Protein (Negative) Hyaline Casts (0-2) /lpf Urine Mucus (None) /hpf Coronavirus (PCR) Detected A (Not Detectd) 03/22/22 03/22/22 03/22/22 Range/Units 04:30 07:28 08:03 RBC (4.30-5.90) m/uL Hgb (13.0-17.5) gm/dL Hct (39.0-53.0) % MCV (80.0-100.0) fL MCH (25.0-35.0) pg Plt Count (150-450) k/uL Macrocytosis PT (9.0-12.0) sec INR (<1.2) D-Dimer 0.71 H (<0.60) mg/L FEU Sodium (137-145) mmol/L Chloride (98-107) mmol/L BUN (9-20) mg/dL Creatinine (0.66-1.25) mg/dL Glucose (74-99) mg/dL Plasma Lactic Acid Deejay (0.7-2.0) mmol/L Total Bilirubin (0.2-1.3) mg/dL AST (17-59) U/L Alkaline Phosphatase (38-126) U/L Troponin I 0.059 H* 0.063 H* (0.000-0.034) ng/mL Procalcitonin (0.02-0.09) ng/mL Urine Protein (Negative) Hyaline Casts (0-2) /lpf Urine Mucus (None) /hpf Coronavirus (PCR) (Not Detectd) 03/22/22 03/22/22 Range/Units 08:03 21:30 RBC (4.30-5.90) m/uL Hgb (13.0-17.5) gm/dL Hct (39.0-53.0) % MCV (80.0-100.0) fL MCH (25.0-35.0) pg Plt Count (150-450) k/uL Macrocytosis PT (9.0-12.0) sec INR (<1.2) D-Dimer (<0.60) mg/L FEU Sodium (137-145) mmol/L Chloride (98-107) mmol/L BUN (9-20) mg/dL Creatinine (0.66-1.25) mg/dL Glucose (74-99) mg/dL Plasma Lactic Acid Deejay (0.7-2.0) mmol/L Total Bilirubin (0.2-1.3) mg/dL AST (17-59) U/L Alkaline Phosphatase (38-126) U/L Troponin I (0.000-0.034) ng/mL Procalcitonin 1.84 H (0.02-0.09) ng/mL Urine Protein 2+ H (Negative) Hyaline Casts 4 H (0-2) /lpf Urine Mucus Rare H (None) /hpf Coronavirus (PCR) (Not Detectd) Thrombosis Risk Factor Assmnt - Choose All That Apply Each Factor Represents 1 point: Abnormal pulmonary function (COPD) Each Risk Factor Represents 3 Points: Age 75 years or older Thrombosis Risk Factor Assessment Total Risk Factor Score: 4 Thrombosis Risk Factor Assessment Level: Moderate Risk Assessment and Plan (1) COPD exacerbation Current Visit: Yes Status: Acute Code(s): J44.1 - CHRONIC OBSTRUCTIVE PULMONARY DISEASE W (ACUTE) EXACERBATION SNOMED Code(s): 908526272 (2) COVID-19 Current Visit: Yes Status: Acute Code(s): U07.1 - COVID-19 SNOMED Code(s): 363873676 (3) ESRD on hemodialysis Current Visit: Yes Status: Acute Code(s): N18.6 - END STAGE RENAL DISEASE; Z99.2 - DEPENDENCE ON RENAL DIALYSIS SNOMED Code(s): 639154259 (4) Febrile illness Current Visit: Yes Status: Acute Code(s): R50.9 - FEVER, UNSPECIFIED SNOMED Code(s): 371339388 (5) Hypoxia Current Visit: Yes Status: Acute Code(s): R09.02 - HYPOXEMIA SNOMED Code(s): 120657853 (6) Pneumonia Current Visit: Yes Status: Acute Code(s): J18.9 - PNEUMONIA, UNSPECIFIED ORGANISM SNOMED Code(s): 475451095 (7) Acute on chronic renal insufficiency Current Visit: No Status: Acute Code(s): N28.9 - DISORDER OF KIDNEY AND URETER, UNSPECIFIED SNOMED Code(s): 628509651 Plan: Plan is to admit patient with gentle IV hydration continued renal dialysis and nephrology consultation IV antibiotics and pulmonary consultation oriented progress. Continue to follow patient's progress. Time with Patient: Greater than 30
[2022-03-23] MEDS: ALBUTEROL HFA INHALER INHALATION PRN ×4 (07:38→19:35)
[2022-03-23 07:48] LABS: Potassium 5.1 mmol/L (3.5-5.1)
[2022-03-23 07:54] LABS: Basophils % (A) 0 %; Eosinophils % (A) 0 %; HCT 30.2 % (39.0-53.0); HGB 9.6 gm/dL (13.0-17.5); Hypochromasia Slight; Lymphocytes # (A) 0.5 k/uL (1.0-4.8); Lymphocytes % (A) 7 %; MCH 36.6 pg (25.0-35.0); MCHC 31.9 g/dL (31.0-37.0); MCV 114.6 fL (80.0-100.0); Macrocytosis Marked; Mean Platelet Volume 10.5; Monocytes # (A) 0.3 k/uL (0-1.0); Monocytes % (A) 4 %; Neutrophils # (A) 6.7 k/uL (1.3-7.7); Neutrophils % (A) 87 %; Platelet Count 144 k/uL (150-450); RBC 2.63 m/uL (4.30-5.90); WBC 7.8 k/uL (3.8-10.6)
[2022-03-23] MEDS: dexAMETHasone 2 MG TAB PO SCH (09:16)
[2022-03-23] MEDS: ZINC SULFATE 220 MG CAP PO SCH (09:16)
[2022-03-23] MEDS: CLOPIDOGREL 75 MG TAB PO SCH (09:16)
[2022-03-23] MEDS: HEPARIN SODIUM,PORCINE/PF 5,000 UNIT/0.5 ML SYRINGE SQ SCH ×2 (09:16→21:09)
[2022-03-23] MEDS: METOPROLOL TARTRATE 25 MG TAB PO SCH ×2 (09:16→21:09)
[2022-03-23] MEDS: hydrALAZINE HCL 50 MG TAB PO SCH ×2 (09:16→21:09)
[2022-03-23] MEDS: ASCORBIC ACID 500 MG TAB PO SCH ×2 (09:17→21:09)
[2022-03-23] MEDS: CHOLECALCIFEROL 25 MCG (1000 IU) TABLET PO SCH (09:17)
--- NOTE | 2022-03-23 10:40 | P.CRDCN ---
History of Present Illness Consult date: 03/23/22 History of present illness: CHIEF COMPLAINT: Abnormal troponins HISTORY OF PRESENT ILLNESS: This is a 76-year-old male with a past medical history significant for with stage renal disease on hemodialysis, hypertension, hyperlipidemia, and lung CA with metastasis. Patient follows in the office with Dr. Stein. We have been asked to see the patient in consultation for abnormal troponins. Patient examined at the bedside. Patient presented to the hospital with a chief complaint of shortness of breath. He was found to be positive for Covid. He denies chest pain or pressure. Currently denies SOB. Vital signs are stable. * EKG reveals sinus tachycardia with nonspecific ST-T wave changes * Chest xray bilateral pulmonary infiltrates are essentially newcomer told exam. There is increased pleural thickening left lateral chest wall compared to the exam. No obvious heart failure. * Laboratory data: WBC 7.8. Hemoglobin 9.6. Platelet count 144. Sodium 135. Potassium 5.1. BUN 45. Creatinine 6.03. Troponin 0.045. 0.059. 0.063. * Current home cardiac medications include Demadex 80 mg daily and metoprolol succinate 50 mg daily * Most recent echocardiogram obtained in the office in April 2020 revealed ejection fraction of 43%. * Patient underwent Lexiscan stress test and May 2020 which was negative for ischemia REVIEW OF SYSTEMS: Thorough review of systems not completed secondary to limited evaluation/examination due to Covid19 PHYSICAL EXAM: Thorough physical exam not completed secondary to limited evaluation/examination due to Covid19 ASSESSMENT: Shortness of breath Covid 19 Possible pneumonia End stage renal disease on HD Abnormal troponins, ACS ruled out, likely secondary to ESRD Lung cancer with metastasis Hypertension Hyperlipidemia PLAN: Will defer repeat echo due to Covid 19 infection Continue current cardiac medications Patient may follow up in the office with Dr. Stein post discharge Nurse practitioner note has been reviewed by physician. Signing provider agrees with the documented findings, assessment, and plan of care. Past Medical History Past Medical History: Chest Pain / Angina, COPD, CVA/TIA, Dialysis, Hyperlipidemia, Hypertension, Renal Disease Additional Past Medical History / Comment(s): Bleeding stomach ulcers, MOHEGAN both ears worse on left ear, bilateral cataracts. HEMODIALYSIS-TUE, VOLODYMYR, SAT History of Any Multi-Drug Resistant Organisms: None Reported Past Surgical History: Tonsillectomy Additional Past Surgical History / Comment(s): left carotid endartectomy, left ear surgery for diseased bone. DIALYSIS PORT, COLONOSCOPY, EGD, Past Anesthesia/Blood Transfusion Reactions: No Reported Reaction Past Psychological History: No Psychological Hx Reported Smoking Status: Current every day smoker Past Alcohol Use History: None Reported Additional Past Alcohol Use History / Comment(s): SMOKES < 1/2 PPD FOR AT LEAST 50 YEARS Past Drug Use History: None Reported - Past Family History Mother Family Medical History: Cancer Additional Family Medical History / Comment(s): colon Father Additional Family Medical History / Comment(s): Sister(s) Family Medical History: Cancer, Congestive Heart Failure (CHF) Medications and Allergies Home Medications Medication Instructions Recorded Confirmed Type Famotidine [Pepcid] 20 mg PO BID 07/29/15 03/22/22 History Gabapentin [Neurontin] 200 mg PO HS 03/22/22 03/22/22 History Lidocaine-Prilocaine Cream [Emla 1 applic TOPICAL DIRECTED 03/22/22 03/22/22 History Cream 2.5%/2.5%] Lovastatin [Mevacor] 40 mg PO HS 03/22/22 03/22/22 History Metoprolol Succinate [Toprol XL] 50 mg PO DAILY 03/22/22 03/22/22 History Terazosin HCl 2 mg PO DIRECTED 03/22/22 03/22/22 History Torsemide [Demadex] 80 mg PO DAILY 03/22/22 03/22/22 History Allergies Allergy/AdvReac Type Severity Reaction Status Date / Time Iodinated Contrast Media Allergy Anaphylaxis Verified 03/22/22 09:16 [Iodinated Contrast Media - IV Dye] Physical Exam Vitals: Vital Signs Temp Pulse Resp BP Pulse Ox 03/23/22 08:50 96.2 F L 81 17 169/74 96 03/23/22 07:39 97 03/23/22 03:25 97.9 F 81 16 157/68 96 03/23/22 00:00 97.4 F L 73 16 140/60 97 03/22/22 20:00 97.4 F L 72 17 161/66 97 03/22/22 15:45 97.6 F 72 18 138/63 97 03/22/22 14:39 97.8 F 72 20 122/58 03/22/22 12:49 97.6 F 69 18 119/52 96 Intake and Output 03/22/22 03/23/22 03/23/22 22:59 06:59 14:59 Intake Total 250 240 Output Total 0 Balance 250 240 Intake: Intake, IV Titration 250 Amount Azithromycin 500 mg In 250 Sodium Chloride 0.9% 250 ml @ 250 mls/hr IVPB ONCE STA Rx#:[id number] Oral 240 Output: Urine 0 Other: Voiding Method Urinal Urinal # Voids 1 Results 03/23/22 06:44 03/23/22 06:44 CBC 03/23/22 Range/Units 06:44 WBC 7.8 (3.8-10.6) k/uL RBC 2.63 L (4.30-5.90) m/uL Hgb 9.6 L (13.0-17.5) gm/dL Hct 30.2 L (39.0-53.0) % Plt Count 144 L (150-450) k/uL Comprehensive Metabolic Panel 03/23/22 Range/Units 06:44 Sodium 135 L (137-145) mmol/L Potassium 5.1 (3.5-5.1) mmol/L Chloride 94 L (98-107) mmol/L Carbon Dioxide 25 (22-30) mmol/L BUN 45 H (9-20) mg/dL Creatinine 6.03 H (0.66-1.25) mg/dL Glucose 121 H (74-99) mg/dL Calcium 9.0 (8.4-10.2) mg/dL Current Medications Generic Name Dose Route Start Last Admin Trade Name Freq PRN Reason Stop Dose Admin Acetaminophen 500 mg 03/22/22 01:34 Acetaminophen Tab 500 Mg Tab PO Q6HR PRN Fever and/ or Pain Albuterol Sulfate 2 puff 03/22/22 08:01 03/23/22 07:38 Albuterol Hfa Inhaler INHALATION 2 puff RT-Q2H PRN Administration Shortness Of Breath Or Wheezing Ascorbic Acid 500 mg 03/22/22 12:45 03/23/22 09:17 Ascorbic Acid 500 Mg Tab PO 500 mg BID JAIME Administration Atorvastatin Calcium 10 mg 03/22/22 21:00 03/22/22 20:37 Atorvastatin 10 Mg Tab PO 10 mg HS JAIME Administration Cholecalciferol 25 mcg 03/22/22 12:45 03/23/22 09:17 Cholecalciferol 25 Mcg (1000 Iu) Tablet PO 25 mcg DAILY JAIME Administration Clopidogrel Bisulfate 75 mg 03/22/22 09:00 03/23/22 09:16 Clopidogrel 75 Mg Tab PO 75 mg DAILY JAIME Administration Dexamethasone 6 mg 03/22/22 12:45 03/23/22 09:16 Dexamethasone 2 Mg Tab PO 6 mg DAILY JAIME Administration Heparin Sodium (Porcine) 5,000 unit 03/22/22 09:00 03/23/22 09:16 Heparin Sodium,Porcine/Pf 5,000 Unit/0.5 Ml Syringe SQ 5,000 unit Q12HR JAIME Administration Hydralazine HCl 50 mg 03/22/22 09:00 03/23/22 09:16 Hydralazine Hcl 50 Mg Tab PO 50 mg BID JAIME Administration Azithromycin 500 mg/ Sodium 250 mls @ 250 mls/hr 03/22/22 21:00 03/22/22 20:38 Chloride IVPB 03/24/22 21:59 250 mls/hr Q24H JAIME Administration Protocol Ceftriaxone Sodium 2 gm/ 50 mls @ 100 mls/hr 03/23/22 01:00 03/22/22 23:49 Sodium Chloride IVPB 100 mls/hr Q24H JAIME Administration Protocol Metoprolol Tartrate 25 mg 03/22/22 09:00 03/23/22 09:16 Metoprolol Tartrate 25 Mg Tab PO 25 mg BID JAIME Administration Naloxone HCl 0.2 mg 03/22/22 02:19 Naloxone 0.4 Mg/Ml 1 Ml Vial IV Q2M PRN Opioid Reversal Zinc Sulfate 220 mg 03/22/22 12:45 03/23/22 09:16 Zinc Sulfate 220 Mg Cap PO 220 mg DAILY JAIME Administration Intake and Output 03/22/22 03/23/22 03/23/22 22:59 06:59 14:59 Intake Total 250 240 Output Total 0 Balance 250 240 Intake: Intake, IV Titration 250 Amount Azithromycin 500 mg In 250 Sodium Chloride 0.9% 250 ml @ 250 mls/hr IVPB ONCE STA Rx#:[id number] Oral 240 Output: Urine 0 Other: Voiding Method Urinal Urinal # Voids 1 03/23/22 06:44 03/23/22 06:44
--- NOTE | 2022-03-23 11:48 | P.PN ---
Subjective Patient is seen for follow-up for end-stage renal disease maintained on hemodialysis on a Saturday schedule. Patient is complaining of diarrhea No significant chest pain or shortness of breath. Objective - Vital Signs Vital signs: Vital Signs Temp 96.2 F L 03/23/22 08:50 Pulse 81 03/23/22 08:50 Resp 17 03/23/22 08:50 BP 169/74 03/23/22 08:50 Pulse Ox 96 03/23/22 08:50 FiO2 Intake & Output 03/22/22 03/23/22 03/23/22 18:59 06:59 18:59 Intake Total 300 490 Output Total 3500 0 Balance -3200 490 Intake: Intake, IV Titration 250 Amount Azithromycin 500 mg In 250 Sodium Chloride 0.9% 250 ml @ 250 mls/hr IVPB ONCE STA Rx#:[id number] Oral 0 240 Hemodialysis 300 Output: Urine 0 0 Stool 0 Urine/Stool Mix 0 Emesis 0 Hemodialysis 3500 Other: Voiding Method Urinal # Voids 0 1 # Bowel Movements 0 - Exam Awake, comfortable, no acute distress No edema noted in the lower extremities Patient is currently in the bathroom [employer] exam grossly intact - Labs CBC & Chem 7: 03/23/22 06:44 03/23/22 06:44 Labs: Abnormal Lab Results - Last 24 Hours (Table) 03/22/22 03/23/22 03/23/22 Range/Units 21:30 06:44 06:44 RBC 2.63 L (4.30-5.90) m/uL Hgb 9.6 L (13.0-17.5) gm/dL Hct 30.2 L (39.0-53.0) % MCV 114.6 H (80.0-100.0) fL MCH 36.6 H (25.0-35.0) pg Plt Count 144 L (150-450) k/uL Lymphocytes # 0.5 L (1.0-4.8) k/uL Macrocytosis Marked A Sodium 135 L (137-145) mmol/L Chloride 94 L (98-107) mmol/L BUN 45 H (9-20) mg/dL Creatinine 6.03 H (0.66-1.25) mg/dL Glucose 121 H (74-99) mg/dL Urine Protein 2+ H (Negative) Hyaline Casts 4 H (0-2) /lpf Urine Mucus Rare H (None) /hpf Microbiology - Last 24 Hours (Table) 03/22/22 00:00 Blood Culture - Preliminary Blood No Growth after 24 hours 03/22/22 00:10 Blood Culture - Preliminary Blood No Growth after 24 hours Assessment and Plan Assessment: 1. End-stage renal disease on hemodialysis on a Saturday schedule 2. Mild volume overload 3. Right lung mass suspicious for metastatic lung cancer with metastases to liver. Patient was scheduled for biopsy however he is currently refusing any further workup 4. CK D mineral bone disorder 5. Hypertension with CK D5 Plan: Hemodialysis in a.m. Family and patient not interested in any further treatment/workup for metastatic lung cancer.
--- NOTE | 2022-03-23 13:24 | P.PN ---
Subjective Progress Note Date: 03/23/22 Principal diagnosis: Acute hypoxic respiratory failure, multifactorial. This is a 76-year-old white male with history of severe COPD, Gold stage III COPD, history of end-stage renal disease, on hemodialysis, previous CVA, patient was last seen by Dr. montague on 03/12/22, he was following up with Dr. Kimbrough for his COPD, and he was recently discovered to have a suspicious right upper lobe mass highly suspicious for bronchogenic carcinoma. PET scan done on March 04 showed diffuse disease likely metastatic disease with primary cancer being in the right upper lobe. Apparently the patient was advised by Dr. Kimbrough to have biopsy of a right neck lesion that was noted on the PET scan, and this was supposedly done by interventional radiology. However the patient did not show up for his biopsy, and apparently he stated he does not want anything done, no diagnoses and no treatment according to him. And he has not been back to the office since he saw Dr. montague on 03/12/2022. The patient presented now to the ER yesterday complaining of shortness of breath, weakness, fatigue, and he had a bit of a productive cough, yellow-green phlegm. No fevers at home, no nausea no vomiting, no abdominal pain, no dysuria and no frequency no urgency. Patient is supposedly vaccinated for COVID-19. And his chest x-ray showed evidence of interstitial infiltrates, right upper lobe mass, highly suspicious for bronchogenic carcinoma, patient was found to have positive COVID-19 PCR. His pro-calcitonin level was also a bit elevated at 1.84, he had a relatively normal CBC, no leukocytosis, BNP level was 52,200, and obviously he had abnormal renal profile with a BUN of 53 creatinine 6.6, patient is on hemodialysis. Considering all these findings, patient was admitted and this consult was initiated. I reviewed the PET scan which was done recently, it is highly suspicious for primary lung malignancy with metastatic disease to the mediastinum, lower neck, supraclavicular lymph nodes, and abnormal activity was noted in the liver suggestive of possible liver metastasis. The PET scan is also suspicious for possible pleural metastatic deposits at any rate patient has been advised in the past to undergo tissue diagnosis and apparently he declined. He still feels the same way, and does not want anything done at this point. As a matter of fact he is asking if he could go home. Patient is now on 2 L nasal cannula, O2 sats is 96%. And his chest x-ray is basically suggestive of fluid overload, underlying pneumonia is not entirely ruled out, however felt to be less likely especially with elevated BNP level nonetheless the patient will be given antibiotics, his pro-calcitonin level is slightly elevated, and he will be placed on the COVID-19 cocktail. Reevaluated today on 03/23/22, patient is doing fairly well, does not seem to be in any distress, he is relatively asymptomatic. Patient is on room air, and his O2 saturation is 97%. Denies cough wheezing or shortness of breath. Labs are unremarkable including CBC and his renal profile showed a BUN of 45 creatinine 6.03, patient is on hemodialysis 3 times per week. Objective - Vital Signs Vital signs: Vital Signs Temp 96.2 F L 03/23/22 08:50 Pulse 81 03/23/22 08:50 Resp 17 03/23/22 08:50 BP 169/74 03/23/22 08:50 Pulse Ox 96 03/23/22 10:53 FiO2 Intake & Output 03/22/22 03/23/22 03/23/22 18:59 06:59 18:59 Intake Total 300 490 Output Total 3500 0 Balance -3200 490 Intake: Intake, IV Titration 250 Amount Azithromycin 500 mg In 250 Sodium Chloride 0.9% 250 ml @ 250 mls/hr IVPB ONCE STA Rx#:[id number] Oral 0 240 Hemodialysis 300 Output: Urine 0 0 Stool 0 Urine/Stool Mix 0 Emesis 0 Hemodialysis 3500 Other: Voiding Method Urinal # Voids 0 1 # Bowel Movements 0 - Exam Physical Exam: Revealed 76-year-old white male in no distress. On room Head: Atraumatic, normocephalic. HEENT:[Neck is supple.] [No neck masses.] [No thyromegaly.] [No JVD.] Chest: [Symmetrical chest expansion fine crackles at the bases. Cardiac Exam: [Normal S1 and S2, no S3 gallop, no murmur.] Abdomen: [Soft, nontender, no megaly, no rebound, no guarding, normal bowel sounds.] Extremities: [No clubbing, no edema, no cyanosis. Right forearm AV fistula noted for hemodialysis.] Neurological Exam: Alert and oriented 3, no gross focal neurologic deficits. Psychiatric: Depressed mood, normal affect, normal mental status examination. Skin: No rashes. - Labs CBC & Chem 7: 03/23/22 06:44 03/23/22 06:44 Labs: Abnormal Lab Results - Last 24 Hours (Table) 03/22/22 03/23/22 03/23/22 Range/Units 21:30 06:44 06:44 RBC 2.63 L (4.30-5.90) m/uL Hgb 9.6 L (13.0-17.5) gm/dL Hct 30.2 L (39.0-53.0) % MCV 114.6 H (80.0-100.0) fL MCH 36.6 H (25.0-35.0) pg Plt Count 144 L (150-450) k/uL Lymphocytes # 0.5 L (1.0-4.8) k/uL Macrocytosis Marked A Sodium 135 L (137-145) mmol/L Chloride 94 L (98-107) mmol/L BUN 45 H (9-20) mg/dL Creatinine 6.03 H (0.66-1.25) mg/dL Glucose 121 H (74-99) mg/dL Urine Protein 2+ H (Negative) Hyaline Casts 4 H (0-2) /lpf Urine Mucus Rare H (None) /hpf Microbiology - Last 24 Hours (Table) 03/22/22 00:00 Blood Culture - Preliminary Blood No Growth after 24 hours 03/22/22 00:10 Blood Culture - Preliminary Blood No Growth after 24 hours Assessment and Plan Assessment: Impression: Acute hypoxic respiratory failure, multifactorial. interstitial edema, possible interstitial infiltrates, right upper lobe mass, and COPD. improving mostly with dialysis and with resident treatment Acute fluid overload, secondary to end-stage renal disease, patient was found to have significantly elevated BNP level. Possible acute diastolic congestive heart failure. Right upper lobe mass, with metastasis based on recent PET scan, highly suspicious for metastatic bronchogenic carcinoma. Acute COVID-19 infection, vaccinated, incidental finding, strongly doubt COVID- 19 pneumonia. History of severe underlying COPD, presently inactive. End-stage renal disease, on hemodialysis. Questionable compliance with dialysis. Dyslipidemia. History of CVA/TIA Benign essential hypertension History of bleeding gastric ulcer. Recommendation: Continue present supportive care measures Continue bronchodilators. Continue hemodialysis. Continue antibiotics to Rocephin and Zithromax. Mostly because the patient was noted to have slightly elevated pro calcitonin level not clinically significant. Continue COVID-19 cocktail. Patient should have outpatient follow-up with Dr. Montague , to decide on tissue biopsy or tissue diagnosis of his lung cancer Continue Decadron for the next few days. Orally. We will clear the patient for discharge if cleared by other consultants on the case. Time with Patient: Less than 30
[2022-03-23] MEDS: ATORVASTATIN 10 MG TAB PO SCH (21:09)
[2022-03-23] MEDS: AZITHROMYCIN 500 MG in SODIUM CHLORIDE 0.9% 250 ML IVPB SCH (21:15)
--- NOTE | 2022-03-23 23:05 | P.PN ---
Subjective Progress Note Date: 03/23/22 Patient is a pleasant 76-year-old white male currently on treatment for pneumonia community-acquired he feels a little bit better today denies any fever denies any nausea vomiting denies any diaphoresis. Objective - Vital Signs Vital signs: Vital Signs Temp 98.4 F 03/23/22 21:00 Pulse 81 03/23/22 21:00 Resp 18 03/23/22 21:00 BP 161/72 03/23/22 21:00 Pulse Ox 95 03/23/22 21:00 FiO2 Intake & Output 03/23/22 03/23/22 03/24/22 06:59 18:59 06:59 Intake Total 490 236 500 Output Total 0 Balance 490 236 500 Intake: Intake, IV Titration 250 500 Amount Azithromycin 500 mg In 250 Sodium Chloride 0.9% 250 ml @ 250 mls/hr IVPB ONCE STA Rx#:[id number] Azithromycin 500 mg In 500 Sodium Chloride 0.9% 250 ml @ 250 mls/hr IVPB Q24H [facility] Rx#:[id number] Oral 240 236 Output: Urine 0 Other: Voiding Method Urinal Urinal Urinal # Voids 1 1 1 # Bowel Movements 1 - Exam GENERAL: This is a 76-year-old in some distress at the time of exa mination. Pleasant and cooperative. HEENT: Head is atraumatic, normocephalic. Pupils are equal, round, and reactive to light. Sclerae anicteric. Conjunctivae are clear. Mucus membranes of the mouth is dry. RESPIRATORY: Lungs are diminished bilateral with crackles in the bases. CARDIOVASCULAR: Regular rate and rhythm. GASTROINTESTINAL: No distention noted. Abdomen soft and round. Normal active b owel sounds auscultated x 4 quadrants. No pain or tenderness noted upon palpation. INTEGUMENTARY: No cyanosis. No jaundice. No rashes noted. No cellulitis noted. EXTREMITIES: 2+ peripheral pulses. No evidence of peripheral edema. No calf tenderness noted. NEUROLOGIC: Cranial nerves II-XII intact. PSYCHIATRIC: Awake, alert, and oriented X 3. Appropriate affect. Intact judgement and insight. - Labs CBC & Chem 7: 03/23/22 06:44 03/23/22 06:44 Labs: Abnormal Lab Results - Last 24 Hours (Table) 03/23/22 03/23/22 Range/Units 06:44 06:44 RBC 2.63 L (4.30-5.90) m/uL Hgb 9.6 L (13.0-17.5) gm/dL Hct 30.2 L (39.0-53.0) % MCV 114.6 H (80.0-100.0) fL MCH 36.6 H (25.0-35.0) pg Plt Count 144 L (150-450) k/uL Lymphocytes # 0.5 L (1.0-4.8) k/uL Macrocytosis Marked A Sodium 135 L (137-145) mmol/L Chloride 94 L (98-107) mmol/L BUN 45 H (9-20) mg/dL Creatinine 6.03 H (0.66-1.25) mg/dL Glucose 121 H (74-99) mg/dL Microbiology - Last 24 Hours (Table) 03/22/22 00:00 Blood Culture - Preliminary Blood No Growth after 24 hours 03/22/22 00:10 Blood Culture - Preliminary Blood No Growth after 24 hours Assessment and Plan (1) COPD exacerbation Current Visit: Yes Status: Acute Code(s): J44.1 - CHRONIC OBSTRUCTIVE PULMONARY DISEASE W (ACUTE) EXACERBATION SNOMED Code(s): 703712184 (2) COVID-19 Current Visit: Yes Status: Acute Code(s): U07.1 - COVID-19 SNOMED Code(s): 422769728 (3) ESRD on hemodialysis Current Visit: Yes Status: Acute Code(s): N18.6 - END STAGE RENAL DISEASE; Z99.2 - DEPENDENCE ON RENAL DIALYSIS SNOMED Code(s): 356587167 (4) Febrile illness Current Visit: Yes Status: Acute Code(s): R50.9 - FEVER, UNSPECIFIED SNOMED Code(s): 253821738 (5) Hypoxia Current Visit: Yes Status: Acute Code(s): R09.02 - HYPOXEMIA SNOMED Code(s): 878580417 (6) Pneumonia Current Visit: Yes Status: Acute Code(s): J18.9 - PNEUMONIA, UNSPECIFIED ORGANISM SNOMED Code(s): 300811314 (7) Acute on chronic renal insufficiency Current Visit: No Status: Acute Code(s): N28.9 - DISORDER OF KIDNEY AND URETER, UNSPECIFIED SNOMED Code(s): 201718960 Plan: Plan is to admit patient with gentle IV hydration continued renal dialysis and nephrology consultation IV antibiotics and pulmonary consultation oriented progress. Continue to follow patient's progress.
[2022-03-24] MEDS: CLOPIDOGREL 75 MG TAB PO SCH (08:49)
[2022-03-24] MEDS: ASCORBIC ACID 500 MG TAB PO SCH (08:49)
[2022-03-24] MEDS: METOPROLOL TARTRATE 25 MG TAB PO SCH (08:49)
[2022-03-24] MEDS: CHOLECALCIFEROL 25 MCG (1000 IU) TABLET PO SCH (08:50)
[2022-03-24] MEDS: dexAMETHasone 2 MG TAB PO SCH (08:50)
[2022-03-24] MEDS: ZINC SULFATE 220 MG CAP PO SCH (08:50)
[2022-03-24] MEDS: hydrALAZINE HCL 50 MG TAB PO SCH (08:50)
[2022-03-24] MEDS: HEPARIN SODIUM,PORCINE/PF 5,000 UNIT/0.5 ML SYRINGE SQ SCH (08:50)
--- NOTE | 2022-03-24 11:18 | P.PN ---
Subjective Patient is seen in follow-up for end-stage renal disease. He is maintained on hemodialysis on Saturday schedule. No active complaints. Wants to go home. Scheduled for dialysis today. On room air. Vital signs are stable. General: Awake. No acute distress. HEENT: Head exam is unremarkable. LUNGS: Breath sounds decreased. HEART: Rate and Rhythm are regular. ABDOMEN: Soft, no distention. EXTREMITITES: No edema. Objective - Vital Signs Vital signs: Vital Signs Temp 97.9 F 03/24/22 08:00 Pulse 77 03/24/22 08:00 Resp 18 03/24/22 08:00 BP 140/66 03/24/22 08:00 Pulse Ox 98 03/24/22 08:00 FiO2 Intake & Output 03/23/22 03/24/22 03/24/22 18:59 06:59 18:59 Intake Total 236 500 Balance 236 500 Intake: Intake, IV Titration 500 Amount Azithromycin 500 mg In 500 Sodium Chloride 0.9% 250 ml @ 250 mls/hr IVPB Q24H [facility] Rx#:[id number] Oral 236 Other: Voiding Method Urinal Urinal Urinal # Voids 1 1 # Bowel Movements 1 - Labs CBC & Chem 7: 03/23/22 06:44 03/23/22 06:44 Labs: Microbiology - Last 24 Hours (Table) 03/22/22 00:00 Blood Culture - Preliminary Blood No Growth after 48 hours 03/22/22 00:10 Blood Culture - Preliminary Blood No Growth after 48 hours Assessment and Plan Plan: Assessment: 1. End-stage renal disease maintained on hemodialysis on Saturday schedule. 2. Right lung mass with concern for metastatic disease. Refused further workup. 3. Hypertension with chronic kidney disease. 4. Mild volume overload. 5. COVID-19 infection. 6. Anemia of chronic kidney disease. Rule out iron deficiency. Plan: Hemodialysis today. Check iron studies. Check phosphorus level.
--- NOTE | 2022-03-24 11:40 | XR ---
EXAMINATION TYPE: XR chest 1V portable DATE OF EXAM: 03/24/2022 CLINICAL HISTORY: Difficulty breathing progress study. History of metastatic lung cancer. TECHNIQUE: Single AP portable upright view of the chest is obtained. COMPARISON: Chest x-ray from 2 days earlier and older studies FINDINGS: Persistent right midlung mass or neoplasm. Background chronic emphysematous change with pe rsistent small left pleural effusion. Stable mild cardiomegaly. Osseous structures remain intact. IMPRESSION: Mild cardiomegaly with small left pleural effusion and chronic emphysematous change along with right midlung neoplasm all redemonstrated. No significant change from most recent x-ray.
--- NOTE | 2022-03-24 12:20 | P.PN ---
Subjective Progress Note Date: 03/24/22 Principal diagnosis: Acute hypoxic respiratory failure, multifactorial. This is a 76-year-old white male with history of severe COPD, Gold stage III COPD, history of end-stage renal disease, on hemodialysis, previous CVA, patient was last seen by Dr. montague on 03/12/22, he was following up with Dr. Kimbrough for his COPD, and he was recently discovered to have a suspicious right upper lobe mass highly suspicious for bronchogenic carcinoma. PET scan done on March 04 showed diffuse disease likely metastatic disease with primary cancer being in the right upper lobe. Apparently the patient was advised by Dr. Kimbrough to have biopsy of a right neck lesion that was noted on the PET scan, and this was supposedly done by interventional radiology. However the patient did not show up for his biopsy, and apparently he stated he does not want anything done, no diagnoses and no treatment according to him. And he has not been back to the office since he saw Dr. montague on 03/12/2022. The patient presented now to the ER yesterday complaining of shortness of breath, weakness, fatigue, and he had a bit of a productive cough, yellow-green phlegm. No fevers at home, no nausea no vomiting, no abdominal pain, no dysuria and no frequency no urgency. Patient is supposedly vaccinated for COVID-19. And his chest x-ray showed evidence of interstitial infiltrates, right upper lobe mass, highly suspicious for bronchogenic carcinoma, patient was found to have positive COVID-19 PCR. His pro-calcitonin level was also a bit elevated at 1.84, he had a relatively normal CBC, no leukocytosis, BNP level was 52,200, and obviously he had abnormal renal profile with a BUN of 53 creatinine 6.6, patient is on hemodialysis. Considering all these findings, patient was admitted and this consult was initiated. I reviewed the PET scan which was done recently, it is highly suspicious for primary lung malignancy with metastatic disease to the mediastinum, lower neck, supraclavicular lymph nodes, and abnormal activity was noted in the liver suggestive of possible liver metastasis. The PET scan is also suspicious for possible pleural metastatic deposits at any rate patient has been advised in the past to undergo tissue diagnosis and apparently he declined. He still feels the same way, and does not want anything done at this point. As a matter of fact he is asking if he could go home. Patient is now on 2 L nasal cannula, O2 sats is 96%. And his chest x-ray is basically suggestive of fluid overload, underlying pneumonia is not entirely ruled out, however felt to be less likely especially with elevated BNP level nonetheless the patient will be given antibiotics, his pro-calcitonin level is slightly elevated, and he will be placed on the COVID-19 cocktail. Reevaluated today on 03/23/22, patient is doing fairly well, does not seem to be in any distress, he is relatively asymptomatic. Patient is on room air, and his O2 saturation is 97%. Denies cough wheezing or shortness of breath. Labs are unremarkable including CBC and his renal profile showed a BUN of 45 creatinine 6.03, patient is on hemodialysis 3 times per week. Reevaluated today on 03/24/22, patient is about the same, he is feeling okay, not requiring any oxygen, and today I plan to transition to oral antibiotics only. I feel the patient could be considered for discharge planning if cleared by other consultants, and he should have follow-up with outpatient basis with Dr. montague. CBC is relatively normal electrolytes are normal BUN is 45 creatinine 6.03 Objective - Vital Signs Vital signs: Vital Signs Temp 97.9 F 03/24/22 08:00 Pulse 77 03/24/22 08:00 Resp 18 03/24/22 11:24 BP 140/66 03/24/22 08:00 Pulse Ox 98 03/24/22 08:00 FiO2 Intake & Output 03/23/22 03/24/22 03/24/22 18:59 06:59 18:59 Intake Total 236 500 Balance 236 500 Intake: Intake, IV Titration 500 Amount Azithromycin 500 mg In 500 Sodium Chloride 0.9% 250 ml @ 250 mls/hr IVPB Q24H [facility] Rx#:[id number] Oral 236 Other: Voiding Method Urinal Urinal Urinal # Voids 1 1 # Bowel Movements 1 - Exam Physical Exam: Revealed 76-year-old white male in no distress. On room Head: Atraumatic, normocephalic. HEENT:[Neck is supple.] [No neck masses.] [No thyromegaly.] [No JVD.] Chest: [Symmetrical chest expansion fine crackles at the bases. Cardiac Exam: [Normal S1 and S2, no S3 gallop, no murmur.] Abdomen: [Soft, nontender, no megaly, no rebound, no guarding, normal bowel sounds.] Extremities: [No clubbing, no edema, no cyanosis. Right forearm AV fistula noted for hemodialysis.] Neurological Exam: Alert and oriented 3, no gross focal neurologic deficits. Psychiatric: Depressed mood, normal affect, normal mental status examination. Skin: No rashes. - Labs CBC & Chem 7: 03/23/22 06:44 03/23/22 06:44 Labs: Microbiology - Last 24 Hours (Table) 03/22/22 00:00 Blood Culture - Preliminary Blood No Growth after 48 hours 03/22/22 00:10 Blood Culture - Preliminary Blood No Growth after 48 hours Assessment and Plan Assessment: Impression: Acute hypoxic respiratory failure, multifactorial. interstitial edema, possible interstitial infiltrates, right upper lobe mass, and COPD. improving mostly with dialysis and with resident treatment Acute fluid overload, secondary to end-stage renal disease, patient was found to have significantly elevated BNP level. Possible acute diastolic congestive heart failure. Right upper lobe mass, with metastasis based on recent PET scan, highly suspicious for metastatic bronchogenic carcinoma. Acute COVID-19 infection, vaccinated, incidental finding, strongly doubt COVID- 19 pneumonia. History of severe underlying COPD, presently inactive. End-stage renal disease, on hemodialysis. Questionable compliance with dialysis. Dyslipidemia. History of CVA/TIA Benign essential hypertension History of bleeding gastric ulcer. Recommendation: We will clear the patient for discharge if cleared by other consultants. Continue present supportive care measures Continue bronchodilators. Continue hemodialysis. Zithromax 500 mg daily for the next 4 days. Discontinue Rocephin Continue COVID-19 cocktail. Patient should have outpatient follow-up with Dr. Montague , to decide on tissue biopsy or tissue diagnosis of his lung cancer Continue Decadron for the next few days. Orally. Again cleared from our perspective for discharge if cleared by other consultants Time with Patient: Less than 30
[2022-03-24] MEDS: ALBUTEROL HFA INHALER INHALATION PRN (12:30)
--- NOTE | 2022-03-24 12:41 | P.PN ---
Subjective Progress Note Date: 03/24/22 This is a 76-year-old male with a past medical history significant for with stage renal disease on hemodialysis, hypertension, hyperlipidemia, and lung CA with metastasis. Patient follows in the office with Dr. Stein. We have been asked to see the patient in consultation for abnormal troponins. Patient presented to the hospital with a chief complaint of shortness of breath. He was found to be positive for Covid. Patient is doing well today, patient is noted resting comfortably in bed in no signs of acute distress. He continues to deny increased shortness of breath or chest pain. Blood pressure is better controlled systolically 140/60 prior to morning medications. Will continue with Lopressor 25 mg twice a day and hydralazine 50 mg twice a day. Patient is scheduled for dialysis today. Objective - Vital Signs Vital signs: Vital Signs Temp 98 F 03/24/22 12:00 Pulse 75 03/24/22 12:00 Resp 18 03/24/22 12:00 BP 132/61 03/24/22 12:00 Pulse Ox 96 03/24/22 12:00 FiO2 Intake & Output 03/23/22 03/24/22 03/24/22 18:59 06:59 18:59 Intake Total 236 500 Balance 236 500 Intake: Intake, IV Titration 500 Amount Azithromycin 500 mg In 500 Sodium Chloride 0.9% 250 ml @ 250 mls/hr IVPB Q24H [facility] Rx#:[id number] Oral 236 Other: Voiding Method Urinal Urinal Urinal # Voids 1 1 # Bowel Movements 1 - Exam PHYSICAL EXAM: Physical exam limited due to Covid 19 VITAL SIGNS: Reviewed. GENERAL: Well-developed in no acute distress. HEENT: Head is normocephalic. Pupils are equal, round. Sclerae anicteric. Mucous membranes of the mouth are moist. NECK: Supple. No JVD or thyromegaly RESPIRATORY: Respirations even and unlabored. CARDIO: Regular rate and rhythm noted on monitor EXTREMITIES: Normal range of motion. No clubbing or cyanosis. Negative for bilateral lower extremity edema NEURO: Orientated to person, time, mood is appropriate - Labs CBC & Chem 7: 03/23/22 06:44 03/23/22 06:44 Labs: Microbiology - Last 24 Hours (Table) 03/22/22 00:00 Blood Culture - Preliminary Blood No Growth after 48 hours 03/22/22 00:10 Blood Culture - Preliminary Blood No Growth after 48 hours Assessment and Plan Assessment: Abnormal troponins, ACS ruled out, likely secondary to ESRD Positive Covid 19 End-stage renal disease on hemodialysis Hypertension Hyperlipidemia Plan: Continue with all current cardiac medications Continue with telemetry monitoring Will continue to follow patient on an as-needed basis The above impression and plan of care have been discussed and directed by the signing physician. Janel Herman, nurse practitioner, acting as scribe for signing physician.
--- NOTE | 2022-03-24 15:24 | P.PN ---
Subjective Progress Note Date: 03/24/22 03/23/22 Patient is a pleasant 76-year-old white male currently on treatment for pneumonia community-acquired he feels a little bit better today denies any fever denies any nausea vomiting denies any diaphoresis. 03/24/2022 Patient is seen today for follow up with multiple medical consultations jonas astorga. Pulmonary following and being treated for pneumonia. Patient is maintained on hemodialysis. Maintained on oral dexamethasone and oral zithromax. Encouraged increased activity as tolerated. Afebrile and denies chest pain or worsening shortness of breath. Continue inhalers. Currently on room air. Cardiology has evaluated the patient for elevated troponins. ACS ruled out. PHysical exam: GENERAL: Alert and oriented 3 , well developed, well nourished. HEENT: Normocephalic. Pupils reactive. Neck: supple CHEST EXAMINATION: diminished breath sounds bilaterally with with crackles and some rhonchi noted. CARDIAC: S1, S2 muffled ABDOMEN: Soft. Nontender, Bowel sounds normal. No organomegaly. No guarding. Extremities: reveal no edema. No clubbing or cyanosis Neurological: Cranial nerves 2 through 12 grossly intact. No focal deficits noted Skin: Warm and dry, No rash. Assessment: (1) COPD exacerbation (2) COVID-19 (3) ESRD on hemodialysis (4) Febrile illness (5) Hypoxia (6) Pneumonia (7) Acute on chronic renal insufficiency GI and DVT prophylaxis Full code Plan: Continue on current medication regimen ,monitoring and symptomatic treatment. Continued on dialysis with nephrology following. Continued on oral Zithromax along with oral steroids in the form of dexamethasone. Prognosis guarded given multiple complex medical issues. Further recommendations to follow based on the clinical course of the patient. The impression and plan of care has been dictated as a scribe by Julia Mitchell, nurse practitioner as directed. Dr. Cj MD I have performed a history and examination and MDM of this patient, discussed the same with the dictator, and has been documented as a scribe. Based on total visit time, I have performed more than 50% of the visit. Any additional findings or plans will be noted. Objective - Vital Signs Vital signs: Vital Signs Temp 97.9 F 03/24/22 05:00 Pulse 83 03/24/22 05:00 Resp 19 03/24/22 05:00 BP 161/74 03/24/22 05:00 Pulse Ox 95 03/24/22 05:00 FiO2 Intake & Output 03/23/22 03/24/22 03/24/22 18:59 06:59 18:59 Intake Total 236 500 Balance 236 500 Intake: Intake, IV Titration 500 Amount Azithromycin 500 mg In 500 Sodium Chloride 0.9% 250 ml @ 250 mls/hr IVPB Q24H [facility] Rx#:[id number] Oral 236 Other: Voiding Method Urinal Urinal # Voids 1 1 # Bowel Movements 1 - Labs CBC & Chem 7: 03/23/22 06:44 03/23/22 06:44 Labs: Abnormal Lab Results - Last 24 Hours (Table) 03/23/22 Range/Units 06:44 RBC 2.63 L (4.30-5.90) m/uL Hgb 9.6 L (13.0-17.5) gm/dL Hct 30.2 L (39.0-53.0) % MCV 114.6 H (80.0-100.0) fL MCH 36.6 H (25.0-35.0) pg Plt Count 144 L (150-450) k/uL Lymphocytes # 0.5 L (1.0-4.8) k/uL Macrocytosis Marked A Microbiology - Last 24 Hours (Table) 03/22/22 00:00 Blood Culture - Preliminary Blood No Growth after 48 hours 03/22/22 00:10 Blood Culture - Preliminary Blood No Growth after 48 hours
--- NOTE | 2022-03-24 15:46 | P.DS ---
Providers Date of admission: 03/22/22 02:20 Expected date of discharge: 03/24/22 Attending physician: Ant Ramirez Consults: 03/22/22 02:19 Consult Physician Routine Consulting Provider: Spencer Miller Consult Reason/Comments: Stage IV cancer, COPD exacerbation, Pneumonia Do you want consulting provider notified?: Yes, Notify in am Consult Physician Routine Consulting Provider: Yvonne Huddleston Consult Reason/Comments: Dialysis TTS Do you want consulting provider notified?: Yes, Notify in am 03/22/22 11:15 Consult Physician Routine Consulting Provider: Perry Stein Consult Reason/Comments: elevated trops Do you want consulting provider notified?: Yes Primary care physician: Ant Ramirez Hospital Course: Final Diagnosis (1) COPD exacerbation (2) COVID-19 (3) ESRD on hemodialysis (4) Febrile illness (5) Hypoxia (6) Pneumonia (7) Acute on chronic renal insufficiency (8)GI and DVT prophylaxis (9)Full code Discharge disposition Patient is being discharged in a stable condition with guarded prognosis to home with home care. Patient will follow-up with Dr. Ramirez in the outpatient setting upon discharge. Patient is to continue with oral zithromax 500mg daily for 5 days and dexamethasone 6mg for 8 days to complete the course. Continue hemodialysis and follow up outpatient. Total time taken is greater than 35 minutes. Hospital course This is an 76-year-old male who was recently admitted with PNA and with covid along with COPD exacerbation. Started on abx and steroids and will continue as mentioned above to complete the course. Patient has been cleared by consultations after dialysis. Currently no reports of chest pain, shortness of breath, or palpitations. Patient is afebrile. No reports of nausea or vomiting and patient is tolerating diet. Please refer to previous dictations and other consultation notes for further hpi. Patient will be discharged home today. Guarded prognosis. On exam vital signs are stable. Cardio S1, S2 are muffled. Respiratory system shows diminished breath sounds at the bases with no wheezing or rhonchi noted. Abdomen is soft and nontender. Nervous system shows no focal deficits Please refer to medication reconciliation sheet for a list of medications. The impression and plan of care has been dictated as a scribe by Julia Mitchell, Nurse Practitioner as directed. Dr. Cj MD I have performed a history and examination and MDM of this patient, discussed the same with the dictator, and will be documented as a scribe. Based on total visit time, I have performed more than 50% of the visit. Patient Condition at Discharge: Fair Plan - Discharge Summary Discharge Rx Participant: No New Discharge Prescriptions: New hydrALAZINE HCL [Apresoline] 50 mg PO BID 30 Days #60 tab dexAMETHasone [Decadron] 6 mg PO DAILY 8 Days #8 tablet Metoprolol Tartrate [Lopressor] 25 mg PO BID 30 Days #60 tab Clopidogrel [Plavix] 75 mg PO DAILY #30 tab Albuterol Inhaler [Ventolin Hfa Inhaler] 2 puff INHALATION RT-Q2H PRN 30 Days #1 each PRN Reason: Shortness Of Breath Or Wheezing Zinc Sulfate [Orazinc] 220 mg PO DAILY 14 Days #14 cap Ascorbic Acid [Vitamin C] 500 mg PO BID #60 tab Cholecalciferol [Vitamin D3 (25 Mcg = 1000 Iu)] 25 mcg PO DAILY #30 tab Azithromycin [Zithromax] 500 mg PO DAILY 5 Days #5 tab Continue Famotidine [Pepcid] 20 mg PO BID Lovastatin [Mevacor] 40 mg PO HS Lidocaine-Prilocaine Cream [Emla Cream 2.5%/2.5%] 1 applic TOPICAL DIRECTED Discontinued Metoprolol Succinate [Toprol XL] 50 mg PO DAILY Gabapentin [Neurontin] 200 mg PO HS Terazosin HCl 2 mg PO DIRECTED Torsemide [Demadex] 80 mg PO DAILY Discharge Medication List Famotidine [Pepcid] 20 mg PO BID 07/29/15 [History] Lidocaine-Prilocaine Cream [Emla Cream 2.5%/2.5%] 1 applic TOPICAL DIRECTED 03/22/22 [History] Lovastatin [Mevacor] 40 mg PO HS 03/22/22 [History] Albuterol Inhaler [Ventolin Hfa Inhaler] 2 puff INHALATION RT-Q2H PRN 30 Days #1 each 03/24/22 [Rx] Ascorbic Acid [Vitamin C] 500 mg PO BID #60 tab 03/24/22 [Rx] Azithromycin [Zithromax] 500 mg PO DAILY 5 Days #5 tab 03/24/22 [Rx] Cholecalciferol [Vitamin D3 (25 Mcg = 1000 Iu)] 25 mcg PO DAILY #30 tab 03/24/22 [Rx] Clopidogrel [Plavix] 75 mg PO DAILY #30 tab 03/24/22 [Rx] Metoprolol Tartrate [Lopressor] 25 mg PO BID 30 Days #60 tab 03/24/22 [Rx] Zinc Sulfate [Orazinc] 220 mg PO DAILY 14 Days #14 cap 03/24/22 [Rx] dexAMETHasone [Decadron] 6 mg PO DAILY 8 Days #8 tablet 03/24/22 [Rx] hydrALAZINE HCL [Apresoline] 50 mg PO BID 30 Days #60 tab 03/24/22 [Rx] Follow up Appointment(s)/Referral(s): Ant Ramirez DO [Primary Care Provider] - 1-2 days [facility] Visiting Nurse, [NON-STAFF] - Activity/Diet/Wound Care/Special Instructions: activity limited until follow up follow up with pulmonary outpatient follow up with nephrology continue taking medications as prescribed continue with hemodialysis continue renal diet Discharge Disposition: HOME WITH HOME HEALTH SERVICES
[2022-03-24 18:08] VITALS: BP 135/56; PULSE 77; RESP 16; TEMP 97
[2022-03-24 23:00] LABS: % Iron Saturation 83.41 (15.00-50.00)
[2022-03-25] MEDS ORDERED: AZITHROMYCIN 500 MG TAB PO SCH (09:00)
--- NOTE | 2022-03-28 07:03 | CDI ---
Documentation Clarification Form Date: 03/28/22 From: Bijal Mendez Admit Date: 03/22/2022 02:20:00 AM Patient Name: Zachary Ward Visit Number: [id number] Discharge Date: 03/24/2022 06:37:00 PM ATTENTION: The Clinical Documentation Specialists (CDI) and [facility] Coding Staff appreciate your assistance in clarifying documentation. Please respond to the clarification below the line at the bottom and electronically sign. The CDI & [facility] Coding staff will review the response and follow-up if needed. Please note: Queries are made part of the Legal Health Record. If you have any questions, please contact the author of this message via ITS. Dr. Cristian Corona, Pneumonia is documented in the ED Note, H&P, consults, progress notes and discharge summary. Additional clarification regarding the type of pneumonia is requested. History/Risk Factors: HTN w ESRD & acute diastolic CHF, positive for COVID, acute hypoxic respiratory failure, primary RUL cancer w mets to liver, mediastinal and supraclavicular lymph nodes, COPD w acute exacerbation and lower respiratory infection, vaccinated against COVID Clinical Indicators: Productive cough with greenish yellow sputum. Hypoxic. O2 saturation on presentation to ER at 86% on room air. WBC/Left shift: 7.7/5.7 03/22 X-ray: Bilateral pulmonary infiltrates are essentially new compared to old. Lung/Breathing assessment Lungs are diminished bilateral with crackles in the bases. Treatment: IV Solu-Medrol, Dexamethasone Antibiotics: IV Azithromycin, IV Rocephin O2 2L NC Breathing Tx: Duoneb 0.5 mg - 3 mg Please clarify the type of pneumonia, if known: [ x ] Community acquired Pneumonia [ ] COVID-19 Pneumonia [ ] Gram Negative Bacterial Pneumonia [ ] Other, please specify [ ] Unable to determine MTDD
== END 2022-03-24 18:37 | disposition home health service (06) | DRG 193 ==
LOC: EC 23:27 → 3SCARD 03-22 02:20 → UNDODISIN 03-24 18:20
PROVIDERS: ADMIT Family Medicine; ATTEND Family Medicine
PROC: 5A1D70Z Performance of Urinary Filtration, Intermittent, Less than 6 Hours Per Day (ICD-10-PCS; principal; 2022-03-22)
DX: J18.9 Pneumonia, unspecified organism (principal); I50.31 Acute diastolic (congestive) heart failure; J96.01 Acute respiratory failure with hypoxia; U07.1 COVID-19; N18.6 End stage renal disease; I13.2 Hypertensive heart and chronic kidney disease with heart failure and with stage 5 chronic kidney disease, or end stage renal disease; C77.1 Secondary and unspecified malignant neoplasm of intrathoracic lymph nodes; C34.11 Malignant neoplasm of upper lobe, right bronchus or lung; C78.7 Secondary malignant neoplasm of liver and intrahepatic bile duct; J44.1 Chronic obstructive pulmonary disease with (acute) exacerbation; J44.0 Chronic obstructive pulmonary disease with (acute) lower respiratory infection; C77.0 Secondary and unspecified malignant neoplasm of lymph nodes of head, face and neck; D63.1 Anemia in chronic kidney disease; E83.9 Disorder of mineral metabolism, unspecified; Z99.2 Dependence on renal dialysis; E78.5 Hyperlipidemia, unspecified; R77.8 Other specified abnormalities of plasma proteins; H91.93 Unspecified hearing loss, bilateral; F17.210 Nicotine dependence, cigarettes, uncomplicated; Z71.6 Tobacco abuse counseling; Z79.899 Other long term (current) drug therapy; Z87.01 Personal history of pneumonia (recurrent); Z86.73 Personal history of transient ischemic attack (TIA), and cerebral infarction without residual deficits; Z87.11 Personal history of peptic ulcer disease; Z91.041 Radiographic dye allergy status
CPT/HCPCS: 36415; 71045; 71046; 80048; 80053; 81001; 82728; 83540; 83550; 83605; 83735; 83880; 84100; 84145; 84484; 85025; 85379; 85610; 85730; 87040; 87502; 87635; 90935; 93005; 94640; 94760; 96365; 96367; 96375; 99285

== ENCOUNTER → 2022-04-14 | Outpatient (CLI) | payer MEDICARE, BC ==
--- NOTE | 2022-04-14 11:09 | XR ---
EXAMINATION TYPE: XR chest 2V DATE OF EXAM: 04/14/2022 COMPARISON: 03/24/2022 HISTORY: Shortness of breath TECHNIQUE: Frontal and lateral views of the chest are obtained. FINDINGS: Scattered senescent parenchymal changes noted. Hyperinflation compatible with COPD. Right suprahilar mass is redemonstrated. Interstitial curly B lines are noted with pulmonary venous c ongestion cardiomegaly and small effusions. Mediastinal structures are stable and grossly unremarkable. No evidence for hilar prominence. Degenerative changes dorsal spine. IMPRESSION: 1. Correlate for mild interstitial edema. 2. Essentially stable right suprahilar mass felt to reflect malignancy.
== END | disposition home or self-care (01) ==
LOC: RADMRIMAIN 09:35
PROVIDERS: ATTEND Family Medicine
DX: J84.9 Interstitial pulmonary disease, unspecified (principal)
CPT/HCPCS: 71046

== ENCOUNTER 2022-04-18 11:24 | Inpatient (IN) | payer MEDICARE, BC ==
[2022-04-18] MEDS ORDERED: HYDROmorphone 0.5 MG/0.5 ML SYRINGE IVP STA (11:41)
[2022-04-18] MEDS ORDERED: SODIUM CHLORIDE 0.9% 500 ML 500 ML IV STA (11:41)
--- NOTE | 2022-04-18 11:47 | ED ---
Abdominal Pain HPI - General Chief Complaint: Abdominal Pain Stated Complaint: dehydration, abd pain Time Seen by Provider: 04/18/22 11:32 Source: patient, family, RN notes reviewed, old records reviewed Limitations: no limitations - History of Present Illness Initial Comments: Ill appearing 76-year-old male brought in by family with complaints of diffuse abdominal pain for 5 days and decreased intake. Patient is a dialysis patient and did not go to dialysis yesterday as he did not feel well. Family denies any fevers but states that he has been vomiting yesterday no vomiting today. Does not remember when his last bowel movement was and states he is not passing gas. She does have a history of lung cancer which has not been confirmed by biopsy is patient does not want to do radiation or chemotherapy. He does have a history of hypertension and COPD gastric ulcers. MD Complaint: abdominal pain -: days(s) (5) Location: diffuse Severity scale (1-10): 10 Consistency: constant Improves With: nothing Associated Symptoms: nausea, vomiting, other (Decreased appetite) - Related Data Home Medications Medication Instructions Recorded Confirmed Famotidine [Pepcid] 20 mg PO BID 07/29/15 04/18/22 Lidocaine-Prilocaine Cream [Emla 1 applic TOPICAL DIRECTED 03/22/22 04/18/22 Cream 2.5%/2.5%] Lovastatin [Mevacor] 40 mg PO HS 03/22/22 04/18/22 Metoprolol Succinate [Metoprolol 25 mg PO DAILY 04/18/22 04/18/22 Succinate ER] Ondansetron [Zofran] 4 mg PO Q8H PRN 04/18/22 04/18/22 Previous Rx's Medication Instructions Recorded Albuterol Inhaler [Ventolin Hfa 2 puff INHALATION RT-Q2H PRN 30 03/24/22 Inhaler] Days #1 each Clopidogrel [Plavix] 75 mg PO DAILY #30 tab 03/24/22 hydrALAZINE HCL [Apresoline] 50 mg PO BID 30 Days #60 tab 03/24/22 Allergies Allergy/AdvReac Type Severity Reaction Status Date / Time Iodinated Contrast Media Allergy Anaphylaxis Verified 04/18/22 12:27 [Iodinated Contrast Media - IV Dye] Review of Systems ROS Statement: Those systems with pertinent positive or pertinent negative responses have been documented in the HPI. ROS Other: All systems not noted in ROS Statement are negative. Past Medical History Past Medical History: Cancer, Chest Pain / Angina, COPD, CVA/TIA, Dialysis, Hyperlipidemia, Hypertension, Renal Disease Additional Past Medical History / Comment(s): Bleeding stomach ulcers, [place] both ears worse on left ear, bilateral cataracts; probable lung CA with METS. HEMODIALYSIS-TUE, VOLODYMYR, SAT History of Any Multi-Drug Resistant Organisms: None Reported Past Surgical History: Tonsillectomy Additional Past Surgical History / Comment(s): left carotid endartectomy, left ear surgery for diseased bone. DIALYSIS PORT, COLONOSCOPY, EGD, Past Anesthesia/Blood Transfusion Reactions: No Reported Reaction Past Psychological History: No Psychological Hx Reported Smoking Status: Current every day smoker Past Alcohol Use History: None Reported Past Drug Use History: None Reported - Past Family History Mother Family Medical History: Cancer Additional Family Medical History / Comment(s): colon Father Additional Family Medical History / Comment(s): Sister(s) Family Medical History: Cancer, Congestive Heart Failure (CHF) General Exam Limitations: no limitations General appearance: alert, in no apparent distress Head exam: Present: atraumatic, normocephalic Eye exam: Absent: conjunctival injection, periorbital swelling, periorbital tenderness ENT exam: Present: mucous membranes dry Respiratory exam: Present: normal lung sounds bilaterally, rales (Left). Absent: respiratory distress, wheezes, rhonchi, stridor, chest wall tenderness, accessory muscle use Cardiovascular Exam: Present: regular rate GI/Abdominal exam: Present: soft, tenderness (diffuse), normal bowel sounds. Absent: distended, rigid Extremities exam: Present: normal capillary refill. Absent: pedal edema Right Upper Arm exam: Present: other (Graft with thrill) Back exam: Present: normal inspection. Absent: tenderness, CVA tenderness (R), CVA tenderness (L), paraspinal tenderness, vertebral tenderness, rash noted Neurological exam: Present: alert Psychiatric exam: Present: normal affect, normal mood Skin exam: Present: warm, dry, normal color. Absent: cyanosis, diaphoretic, petechiae, pallor Course Vital Signs 04/18/22 04/18/22 11:25 15:51 Temperature 97.0 F L Pulse Rate 83 70 Respiratory 12 16 Rate Blood Pressure 122/46 140/76 O2 Sat by Pulse 97 99 Oximetry Medical Decision Making - Medical Decision Making BUN 17 creatinine 8.07, sodium 132. Lactic acid 2.1. Patient was given IV fluids. Hemoglobin 6.5. Previous hemoglobin on March 23 was 9.6. Patient is on Plavix. Family at bedside states he has been having dark tarry stools. Occult blood positive. One unit of packed RBCs was ordered. My interpretation of the CT abdomen and pelvis is metastatic disease to the liver. No evidence of free air. Radiologist impression left lower lobe consolidation suspicious for infection. Progression of metastatic disease with a right lower lobe pulmonary nodules, lobulated thickening of the left adrenal gland with hypodense foci seen throughout the liver not present 07/06/2020. Right lower lobe pulmonary nodule measuring 8 mm. Diffuse hypoattenuating metastatic disease throughout the liver. Thickened gallbladder wall with hypodensity in the lumen likely representing sludge or gallstones. No evidence of aortic aneurysm. No gross evidence for lymphadenopathy. Per family patient did have a PET scan March 03. PET scan shows right lung primary malignancy with metastatic disease to the mediastinum, lower neck and supraclavicular lymph nodes. Additional right upper lobe pulmonary nodule seen in 2019 stable without increased activity. Nonspecific curvilinear peripheral liver ill-defined. Recommended MRI liver mass protocol. Patient does want to be a full code at this time. He did miss dialysis yesterday. Patient will be admitted to the hospital with oncology and nephrology consults. Family agreeable to admission. Vital signs are stable Case discussed with Dr. Judge. - Lab Data Result diagrams: 04/18/22 12:00 04/18/22 12:00 Lab Results 04/18/22 04/18/22 04/18/22 Range/Units 12:00 12:00 12:00 WBC 5.1 (3.8-10.6) k/uL RBC 1.76 L (4.30-5.90) m/uL Hgb 6.5 L* D (13.0-17.5) gm/dL Hct 19.7 L* (39.0-53.0) % MCV 111.7 H (80.0-100.0) fL MCH 36.6 H (25.0-35.0) pg MCHC 32.8 (31.0-37.0) g/dL RDW 16.9 H (11.5-15.5) % Plt Count 253 (150-450) k/uL MPV 9.7 Neutrophils % (Manual) 57 % Lymphocytes % (Manual) 22 % Monocytes % (Manual) 16 % Eosinophils % (Manual) 5 % Basophils % (Manual) 1 % Myelocytes % 1 % Neutrophils # (Manual) 2.91 (1.3-7.7) k/uL Lymphocytes # (Manual) 1.12 (1.0-4.8) k/uL Monocytes # (Manual) 0.82 (0-1.0) k/uL Eosinophils # (Manual) 0.26 (0-0.7) k/uL Basophils # (Manual) 0.05 (0-0.2) k/uL Myelocytes # (Manual) 0.05 H (0) k/uL Nucleated RBCs 1 H (0-0) /100 WBC Manual Slide Review Performed Polychromasia Present Anisocytosis Slight Macrocytosis Marked A PT 11.2 (9.0-12.0) sec INR 1.0 (<1.2) APTT 23.2 (22.0-30.0) sec Sodium 132 L (137-145) mmol/L Potassium 4.9 (3.5-5.1) mmol/L Chloride 95 L (98-107) mmol/L Carbon Dioxide 23 (22-30) mmol/L Anion Gap 14 mmol/L BUN 117 H* (9-20) mg/dL Creatinine 8.07 H* (0.66-1.25) mg/dL Est GFR (CKD-EPI)AfAm 7 (>60 ml/min/1.73 sqM) Est GFR (CKD-EPI)NonAf 6 (>60 ml/min/1.73 sqM) Glucose 101 H (74-99) mg/dL Lactic Ac Sepsis Rflx Plasma Lactic Acid Deejay (0.7-2.0) mmol/L Calcium 9.2 (8.4-10.2) mg/dL Total Bilirubin 0.8 (0.2-1.3) mg/dL AST 46 (17-59) U/L ALT 27 (4-49) U/L Alkaline Phosphatase 262 H (38-126) U/L Total Protein 5.9 L (6.3-8.2) g/dL Albumin 3.3 L (3.5-5.0) g/dL Amylase 52 (30-110) U/L Lipase 163 (23-300) U/L Stool Occult Blood (Negative) 04/18/22 04/18/22 04/18/22 Range/Units 12:00 13:11 13:33 WBC (3.8-10.6) k/uL RBC (4.30-5.90) m/uL Hgb (13.0-17.5) gm/dL Hct (39.0-53.0) % MCV (80.0-100.0) fL MCH (25.0-35.0) pg MCHC (31.0-37.0) g/dL RDW (11.5-15.5) % Plt Count (150-450) k/uL MPV Neutrophils % (Manual) % Lymphocytes % (Manual) % Monocytes % (Manual) % Eosinophils % (Manual) % Basophils % (Manual) % Myelocytes % % Neutrophils # (Manual) (1.3-7.7) k/uL Lymphocytes # (Manual) (1.0-4.8) k/uL Monocytes # (Manual) (0-1.0) k/uL Eosinophils # (Manual) (0-0.7) k/uL Basophils # (Manual) (0-0.2) k/uL Myelocytes # (Manual) (0) k/uL Nucleated RBCs (0-0) /100 WBC Manual Slide Review Polychromasia Anisocytosis Macrocytosis PT (9.0-12.0) sec INR (<1.2) APTT (22.0-30.0) sec Sodium (137-145) mmol/L Potassium (3.5-5.1) mmol/L Chloride (98-107) mmol/L Carbon Dioxide (22-30) mmol/L Anion Gap mmol/L BUN (9-20) mg/dL Creatinine (0.66-1.25) mg/dL Est GFR (CKD-EPI)AfAm (>60 ml/min/1.73 sqM) Est GFR (CKD-EPI)NonAf (>60 ml/min/1.73 sqM) Glucose (74-99) mg/dL Lactic Ac Sepsis Rflx Y Plasma Lactic Acid Deejay 2.1 H* (0.7-2.0) mmol/L Calcium (8.4-10.2) mg/dL Total Bilirubin (0.2-1.3) mg/dL AST (17-59) U/L ALT (4-49) U/L Alkaline Phosphatase (38-126) U/L Total Protein (6.3-8.2) g/dL Albumin (3.5-5.0) g/dL Amylase (30-110) U/L Lipase (23-300) U/L Stool Occult Blood Positive (Negative) - EKG Data EKG shows normal: sinus rhythm (EKG shows sinus rhythm with ventricular rate of 80, AR interval 0.161, QRS 0.101, QTC 0.450; normal axis) Critical Care Time Critical Care Time: Yes (32) Disposition Clinical Impression: Anemia, CKD (chronic kidney disease), Metastatic cancer to liver, Dependence on renal dialysis, Lung cancer Disposition: ADMITTED IP TO THIS [facility] Decision Date: 04/18/22 Decision Time: 13:37
[2022-04-18 12:55] LABS: Anisocytosis Slight; MCH 36.6 pg (25.0-35.0); MCHC 32.8 g/dL (31.0-37.0); MCV 111.7 fL (80.0-100.0); Macrocytosis Marked; Mean Platelet Volume 9.7; Platelet Count 253 k/uL (150-450); RBC 1.76 m/uL (4.30-5.90); RDW 16.9 % (11.5-15.5)
[2022-04-18 12:57] LABS: HGB 6.5 gm/dL (13.0-17.5)
[2022-04-18 12:58] LABS: HCT 19.7 % (39.0-53.0)
[2022-04-18 12:59] LABS: Albumin 3.3 g/dL (3.5-5.0); Calcium 9.2 mg/dL (8.4-10.2); Potassium 4.9 mmol/L (3.5-5.1); Total Bilirubin 0.8 mg/dL (0.2-1.3); Total Protein 5.9 g/dL (6.3-8.2)
[2022-04-18 13:03] LABS: Partial Thromboplastin Time 23.2 sec (22.0-30.0); Prothrombin Time 11.2 sec (9.0-12.0)
--- NOTE | 2022-04-18 13:10 | CT ---
EXAMINATION TYPE: CT abdomen pelvis wo con CT DLP: 410.3 mGycm, Automated exposure control for dose reduction was used. DATE OF EXAM: 04/18/2022 12:54 PM COMPARISON: CT abdomen pelvis most recent from PET/CT 03/03/2022. CLINICAL INDICATION:Male, 76 years old with history of abd pain 5 days; pain and dehydration TECHNIQUE: Axial CT of the abdomen and pelvis. Sagittal and coronal reformats were created on a [employer] workstation. Contrast used: None Oral contrast used: without Oral Contrast FINDINGS: LOWER CHEST: Calcifications along the pericardium. Consolidation changes within the left lung base. T here is trace bilateral pleural effusions.. Right lower lobe pulmonary nodule measuring up to 8 mm ABDOMEN LIVER: Diffuse hypoattenuating metastatic disease throughout the liver. GALLBLADDER AND BILE DUCTS: Circumferentially thickened gallbladder wall with high density in the lum en likely representing sludge/gallstones. PANCREAS: Unremarkable. SPLEEN: Unremarkable. ADRENAL GLANDS: Heterogenous lobulated contour to the left adrenal gland which seems to have increase d from prior PET/CT scan 03/03/2022. KIDNEYS AND URETERS: No nonobstructing renal calculi bilaterally versus renal vascular calcifications . Bilateral renal cysts. Atrophic right kidney compared to left. PELVIS BLADDER: Unremarkable REPRODUCTIVE: Unremarkable. ABDOMEN & PELVIS STOMACH AND BOWEL: No evidence of bowel obstruction. Postsurgical changes to the bowel. Infrarenal fu siform aortic ectasia measuring up to 2.6 cm. PERITONEUM: No evidence of pneumoperitoneum or free fluid. VASCULATURE: No evidence of aortic aneurysm. Severe atherosclerosis of the arterial vasculature. MUSCULOSKELETAL: No acute osseous abnormalities LYMPH NODES: No gross evidence for lymphadenopathy. SOFT TISSUE/ABDOMINAL WALL: Unremarkable IMPRESSION: 1. Left lower lobe consolidation changes suspicious for infection. No evidence for acute intraluminal process. 2. Progression of metastatic disease with right lower lobe pulmonary nodules, lobulated thickening of the left adrenal gland along with innumerable hypodense foci seen throughout the liver on today's ex am not seen on prior on 07/06/2020 and may been subtle blunting of the background liver FDG activity on PET/CT on 03/03/2022.
[2022-04-18 13:36] LABS: Basophils # (M) 0.05 k/uL (0-0.2); Eosinophils # (M) 0.26 k/uL (0-0.7); Lymphocytes # (M) 1.12 k/uL (1.0-4.8); Monocytes # (M) 0.82 k/uL (0-1.0); Myelocytes # (M) 0.05 k/uL (0); Myelocytes % 1 %; Neutrophils # (M) 2.91 k/uL (1.3-7.7); Neutrophils % (M) 57 %; Nucleated Red Blood Cells 1 /100 WBC (0-0); Total Cells Counted 200; WBC 5.1 k/uL (3.8-10.6)
[2022-04-18 13:38] LABS: Polychromasia Present
[2022-04-18] MEDS ORDERED: HYDROmorphone 0.5 MG/0.5 ML SYRINGE IVP PRN (13:44)
[2022-04-18] MEDS ORDERED: NALOXONE 0.4 MG/ML 1 ML VIAL IV PRN (13:44)
[2022-04-18] MEDS ORDERED: ALBUTEROL NEBULIZED 2.5 MG/3 ML INHALATION PRN (14:08)
[2022-04-18] MEDS ORDERED: ONDANSETRON 4 MG TAB PO PRN (14:08)
[2022-04-18] MEDS ORDERED: cefTRIAXone IN SWFI 1,000 MG/10 ML SYRINGE IVP STA (14:09)
[2022-04-18] MEDS: SODIUM CHLORIDE 0.9% 1,000 ML IV SCH (16:10)
[2022-04-18] MEDS: PANTOPRAZOLE 40 MG/10 ML VIAL IV SCH (16:16)
[2022-04-18] MEDS ORDERED: ATORVASTATIN 10 MG TAB PO SCH (21:00)
[2022-04-19] MEDS: hydrALAZINE HCL 50 MG TAB PO SCH ×2 (00:04→11:59)
[2022-04-19] MEDS: SODIUM CHLORIDE 0.9% 1,000 ML IV SCH (03:03)
[2022-04-19 08:09] LABS: Anisocytosis Moderate; HCT 25.7 % (39.0-53.0); MCH 34.5 pg (25.0-35.0); Macrocytosis Marked; Mean Platelet Volume 9.7; Platelet Count 254 k/uL (150-450); RBC 2.46 m/uL (4.30-5.90); RDW 22.6 % (11.5-15.5); WBC 5.4 k/uL (3.8-10.6)
[2022-04-19 08:11] LABS: HGB 8.5 gm/dL (13.0-17.5)
[2022-04-19 08:12] LABS: MCV 104.4 fL (80.0-100.0)
[2022-04-19] MEDS ORDERED: METOPROLOL SUCCINATE (ER) 25 MG TAB.ER.24H PO SCH (09:00)
[2022-04-19 09:56] LABS: Appearance,Urine Clear (Clear); Bilirubin,Urine Negative (Negative); Blood,Urine Negative (Negative); Color,Urine Yellow; Glucose,Urine (UA) Negative (Negative); Hyaline Casts,Urine 9 /lpf (0-2); Ketones,Urine Negative (Negative); Leukocyte Esterase,Urine Negative (Negative); Mucus,Urine Rare /hpf; Nitrite,Urine Negative (Negative); PH, Urine 5.5 (5.0-8.0); Protein,Urine 1+ (Negative); RBC,Urine 1 /hpf (0-5); Specific Gravity,Urine 1.015 (1.001-1.035); Squamous Epithelial Cell,Urine <1 /hpf (0-4); Urobilinogen,Urine <2.0 mg/dL (<2.0); WBC,Urine 5 /hpf (0-5)
[2022-04-19 10:17] LABS: Eosinophils # (M) 0.11 k/uL (0-0.7); Lymphocytes # (M) 0.92 k/uL (1.0-4.8); Metamyelocytes # (M) 0.05 k/uL (0); Metamyelocytes % 1 %; Monocytes # (M) 0.43 k/uL (0-1.0); Myelocytes # (M) 0.05 k/uL (0); Myelocytes % 1 %; Neutrophils # (M) 3.89 k/uL (1.3-7.7); Neutrophils % (M) 72 %; Nucleated Red Blood Cells 0 /100 WBC (0-0); Total Cells Counted 200
[2022-04-19 10:20] LABS: Polychromasia Present
[2022-04-19 11:39] VITALS: BP 168/54; PULSE 92; RESP 18; TEMP 97.5
[2022-04-19] MEDS: PANTOPRAZOLE 40 MG/10 ML VIAL IV SCH (12:00)
--- NOTE | 2022-04-19 17:02 | P.HPIM ---
History of Present Illness H&P Date: 04/19/22 Chief Complaint: Dehydration, abdominal pain This is a 76-year-old gentleman presented to ER with diffuse abdominal pain, decreased intake, did not go to dialysis yesterday. Reports last week he met with [facility] to open up with Hospice, but they would not allow him to continue on hemodialysis, so he continued looking for another hospice company. Received hemodialysis last night, declining hemodialysis this morning. CT of abdomen and pelvis reported progressive of metastatic disease with right lower lobe pulmonary nodules, lobulated thickening of the left adrenal gland along with innumerable hypodense foci seen throughout the liver not seen on prior exam. Reports he is declining radiation and chemotherapy. Declined consult with oncology last night, but did speak with oncology this morning, discussed CT of the abdomen and pelvis findings, biopsy offered-patient declining. On admission hemoglobin 6.5, received 1 unit of packed RBCs with current hemoglobin this mo rning 8.5, platelets 254. GI workup declined recently per PCP. Requesting no further lab draws. Denies abdominal pain. Denies chest pain, palpitations or increased shortness of breath. Requesting discharge home. Review of Systems ROS Statement: Those systems with pertinent positive or pertinent negative responses have been documented in the HPI. ROS Other: All systems not noted in ROS Statement are negative. Past Medical History Past Medical History: Cancer, Chest Pain / Angina, COPD, CVA/TIA, Dialysis, Hyperlipidemia, Hypertension, Renal Disease Additional Past Medical History / Comment(s): Bleeding stomach ulcers, [place] both ears worse on left ear, bilateral cataracts; probable lung CA with METS. HEMODIALYSIS-TUE, VOLODYMYR, SAT History of Any Multi-Drug Resistant Organisms: None Reported Past Surgical History: Tonsillectomy Additional Past Surgical History / Comment(s): left carotid endartectomy, left ear surgery for diseased bone. DIALYSIS PORT, COLONOSCOPY, EGD, Past Anesthesia/Blood Transfusion Reactions: No Reported Reaction Past Psychological History: No Psychological Hx Reported Smoking Status: Current every day smoker Past Alcohol Use History: None Reported Past Drug Use History: None Reported - Past Family History Mother Family Medical History: Cancer Additional Family Medical History / Comment(s): colon Father Additional Family Medical History / Comment(s): Sister(s) Family Medical History: Cancer, Congestive Heart Failure (CHF) Medications and Allergies Home Medications Medication Instructions Recorded Confirmed Type Famotidine [Pepcid] 20 mg PO BID 07/29/15 04/18/22 History Lidocaine-Prilocaine Cream [Emla 1 applic TOPICAL DIRECTED 03/22/22 04/18/22 History Cream 2.5%/2.5%] Lovastatin [Mevacor] 40 mg PO HS 03/22/22 04/18/22 History Albuterol Inhaler [Ventolin Hfa 2 puff INHALATION RT-Q2H PRN 30 03/24/2204/03 Rx Inhaler] Days #1 each Clopidogrel [Plavix] 75 mg PO DAILY #30 tab 03/24/22 04/18/22 Rx hydrALAZINE HCL [Apresoline] 50 mg PO BID 30 Days #60 tab 03/24/22 04/18/22 Rx Metoprolol Succinate [Metoprolol 25 mg PO DAILY 04/18/22 04/18/22 History Succinate ER] Ondansetron [Zofran] 4 mg PO Q8H PRN 04/18/22 04/18/22 History Allergies Allergy/AdvReac Type Severity Reaction Status Date / Time Iodinated Contrast Media Allergy Anaphylaxis Verified 04/18/22 12:27 [Iodinated Contrast Media - IV Dye] Physical Exam Vitals: Vital Signs Temp Pulse Pulse Resp BP BP Pulse Ox 04/19/22 11:15 97.5 F L 92 18 168/54 90 L 04/19/22 03:23 97.9 F 96 16 141/53 97 04/19/22 00:03 143/53 04/18/22 23:23 97.6 F 80 18 134/51 04/18/22 21:52 97.6 F 78 18 137/53 98 04/18/22 21:24 97.5 F L 89 16 123/49 98 04/18/22 21:04 98.3 F 85 16 135/51 96 04/18/22 20:55 98.5 F 84 16 135/51 96 04/18/22 20:00 18 04/18/22 17:58 97.6 F 80 18 137/55 100 Intake and Output 04/19/22 04/19/22 04/19/22 06:59 14:59 22:59 Intake Total 1360 Output Total 2500 Balance -1140 Intake: Intake, IV Titration 50 Amount cefTRIAXone 1 gm In 50 Sodium Chloride 0.9% 50 ml @ 100 mls/hr IVPB ONCE STA Rx#:[id number] Oral 500 Hemodialysis 810 Output: Hemodialysis 2500 Other: Voiding Method Urinal # Voids 1 PHYSICAL EXAM: VITAL SIGNS: [As above] GENERAL: Sitting up at side of bed, drinking coffee HEENT: Conjunctivae normal. eyes normal. NECK: No JVD. No thyroid enlargement. No LNs CARDIOVASCULAR: S1, S2 regular. No murmur RESPIRATION: Breath sounds diminished in the bases. ABDOMEN: Soft, nontender . No guarding. no masses palpable.Bowel sounds heard. EXtremities: No edema. no swelling ,Right forearm AV fistula noted for hemodialysis. PSYCHIATRY: Alert and oriented X3, mood and affect normal. NERVOUS SYSTEM: Cranial N 2-12 grossly normal. No focal deficits. Strength and sensation grossly intact.. Skin: Warm and dry, no rash Results CBC & Chem 7: 04/19/22 07:42 04/18/22 12:00 Labs: Abnormal Lab Results - Last 24 Hours (Table) 04/18/22 04/18/22 04/19/22 Range/Units 12:00 14:35 07:42 RBC 2.46 L (4.30-5.90) m/uL Hgb 8.5 L D (13.0-17.5) gm/dL Hct 25.7 L (39.0-53.0) % MCV 104.4 H D (80.0-100.0) fL RDW 22.6 H (11.5-15.5) % Lymphocytes # (Manual) 0.92 L (1.0-4.8) k/uL Metamyelocytes # (Man) 0.05 H (0) k/uL Myelocytes # (Manual) 0.05 H (0) k/uL Macrocytosis Marked A Urine Protein 1+ H (Negative) Hyaline Casts 9 H (0-2) /lpf Urine Mucus Rare H (None) /hpf Crossmatch See Detail Thrombosis Risk Factor Assmnt - Choose All That Apply Each Factor Represents 1 point: Abnormal pulmonary function (COPD), Swollen legs (current) Each Risk Factor Represents 2 Points: Malignancy Each Risk Factor Represents 3 Points: Age 75 years or older Thrombosis Risk Factor Assessment Total Risk Factor Score: 7 Thrombosis Risk Factor Assessment Level: High Risk Assessment and Plan Assessment: Recently diagnosed with lung cancer, declining radiation or chemotherapy, requesting hospice and also to continue hemodialysis at this time. CT suggestive of metastatic cancer to liver. Anemia, suspect related to the above, Status post 1 unit packed RBCs History of recent COVID-19 History of severe underlying COPD, presently inactive. End-stage renal disease, on hemodialysis. Dyslipidemia. History of CVA/TIA Benign essential hypertension History of bleeding gastric ulcer. Ongoing nicotine dependence Plan: Continue on current medication regime ,monitoring and symptomatic treatment. Informational hospice meeting with Henrique completed .Patient requesting discharge home today with hospice that will facilitate hemodialysis. Patient will be discharged home today with hospice. Prognosis guarded given multiple complex medical issues. The impression and plan of care has been dictated as directed. : I performed a history and examination of this patient, discussed the same with the dictator. I agree with the dictator's note ,documented as a scribe. Any additional findings or plans will be noted.
--- NOTE | 2022-04-19 18:30 | P.CONS ---
History of Present Illness - Reason for Consult Consult date: 04/19/22 Suspect metastatic lung cancer Requesting physician: Vadim Elena - Chief Complaint Abdominal pain - History of Present Illness Mr Ward is a 76-year-old man who presented to the ER with diffuse abdominal pain, anorexia, on dialysis. It is documented that he met with [facility] to open up to hospice last week but, dialysis is not a Service of hospice so, he postponed signing up for any services. When we stopped to see the patient he was refusing dialysis, states he'll do it on Saturday. We've been asked to see the patient because of right upper lobe lung mass, mediastinal lymphadenopathy, lymph nodes in the cervical area as well as liver lesions. Patient was referred to our office about 6 weeks ago, it is documented staff spoke with patient, his response was that he is sick and that he has 3 months to live, decided he doesn't want treatment. Radiation Oncology also attempted to contact patient but he was refusing any appointments or treatment. When seen today, Dr. Ihsan Jara explained to the patient concerning findings on imaging, highly suspect cancer. When asked if patient would like a biopsy he reported that yes, he would. He is discharged per his request. We will attempt to contact him in the outpatient setting to schedule a biopsy. Review of Systems Focused review of systems is negative. 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 HEMODIALYSIS-TUE, VOLODYMYR, SAT History of Any Multi-Drug Resistant Organisms: None Reported Past Surgical History: Tonsillectomy Additional Past Surgical History / Comment(s): left carotid endartectomy, left ear surgery for diseased bone. DIALYSIS PORT, COLONOSCOPY, EGD, Past Anesthesia/Blood Transfusion Reactions: No Reported Reaction Past Psychological History: No Psychological Hx Reported Smoking Status: Current every day smoker Past Alcohol Use History: None Reported Past Drug Use History: None Reported - Past Family History Mother Family Medical History: Cancer Additional Family Medical History / Comment(s): colon Father Additional Family Medical History / Comment(s): Sister(s) Family Medical History: Cancer, Congestive Heart Failure (CHF) Medications and Allergies Home Medications Medication Instructions Recorded Confirmed Type Famotidine [Pepcid] 20 mg PO BID 07/29/15 04/18/22 History Lidocaine-Prilocaine Cream [Emla 1 applic TOPICAL DIRECTED 03/22/22 04/18/22 History Cream 2.5%/2.5%] Lovastatin [Mevacor] 40 mg PO HS 03/22/22 04/18/22 History Albuterol Inhaler [Ventolin Hfa 2 puff INHALATION RT-Q2H PRN 30 03/24/22 04/18/22 Rx Inhaler] Days #1 each Clopidogrel [Plavix] 75 mg PO DAILY #30 tab 03/24/22 04/18/22 Rx hydrALAZINE HCL [Apresoline] 50 mg PO BID 30 Days #60 tab 03/24/22 04/18/22 Rx Metoprolol Succinate [Metoprolol 25 mg PO DAILY 04/18/22 04/18/22 History Succinate ER] Ondansetron [Zofran] 4 mg PO Q8H PRN 04/18/22 04/18/22 History Allergies Allergy/AdvReac Type Severity Reaction Status Date / Time Iodinated Contrast Media Allergy Anaphylaxis Verified 04/18/22 12:27 [Iodinated Contrast Media - IV Dye] Physical Exam Vitals: Vital Signs Temp Pulse Pulse Resp BP BP Pulse Ox 04/19/22 11:15 97.5 F L 92 18 168/54 90 L 04/19/22 03:23 97.9 F 96 16 141/53 97 04/19/22 00:03 143/53 04/18/22 23:23 97.6 F 80 18 134/51 04/18/22 21:52 97.6 F 78 18 137/53 98 04/18/22 21:24 97.5 F L 89 16 123/49 98 04/18/22 21:04 98.3 F 85 16 135/51 96 04/18/22 20:55 98.5 F 84 16 135/51 96 04/18/22 20:00 18 04/18/22 17:58 97.6 F 80 18 137/55 100 Intake and Output 04/19/22 04/19/22 04/19/22 06:59 14:59 22:59 Intake Total 1360 Output Total 2500 Balance -1140 Intake: Intake, IV Titration 50 Amount cefTRIAXone 1 gm In 50 Sodium Chloride 0.9% 50 ml @ 100 mls/hr IVPB ONCE STA Rx#:[id number] Oral 500 Hemodialysis 810 Output: Hemodialysis 2500 Other: Voiding Method Urinal # Voids 1 - Constitutional General appearance: cooperative, mild distress, thin - EENT Eyes: anicteric sclerae, EOMI ENT: hearing grossly normal - Neck Neck: lymphadenopathy - Respiratory Respiratory: bilateral: diminished - Cardiovascular Rhythm: regular Heart sounds: normal: S1, S2 Abnormal Heart Sounds: no systolic murmur, no diastolic murmur, no rub, no S3 Gallop, no S4 Gallop, no click, no other - Gastrointestinal General gastrointestinal: no absent bowel sounds, no decreased bowel sounds, no distended, no hepatomegaly, no hyperactive bowel sounds, normal bowel sounds, no organomegaly, no rigid, no scaphoid, soft, no splenomegaly, no tenderness, no umbilical hernia, no ventral hernia - Integumentary Bronzed color to the skin, consistent with renal disease. - Neurologic Neurologic: CNII-XII intact (grosslky) - Musculoskeletal Musculoskeletal: generalized weakness - Psychiatric pt is angry when seen, He is not wanting dialysis at this time Psychiatric: A&O x's 3, intact judgment & insight Results CBC & Chem 7: 04/19/22 07:42 04/18/22 12:00 Labs: Abnormal Lab Results - Last 24 Hours (Table) 04/18/22 04/18/22 04/19/22 Range/Units 12:00 14:35 07:42 RBC 2.46 L (4.30-5.90) m/uL Hgb 8.5 L D (13.0-17.5) gm/dL Hct 25.7 L (39.0-53.0) % MCV 104.4 H D (80.0-100.0) fL RDW 22.6 H (11.5-15.5) % Lymphocytes # (Manual) 0.92 L (1.0-4.8) k/uL Metamyelocytes # (Man) 0.05 H (0) k/uL Myelocytes # (Manual) 0.05 H (0) k/uL Macrocytosis Marked A Urine Protein 1+ H (Negative) Hyaline Casts 9 H (0-2) /lpf Urine Mucus Rare H (None) /hpf Crossmatch See Detail Comments: Reviewed PET scan 03/04/22 and 02/26/20 CT scan - abdomen: report reviewed CT scan - pelvis: report reviewed Assessment and Plan (1) Lung mass Status: Acute Priority: High Code(s): R91.8 - OTHER NONSPECIFIC ABNORMAL FINDING OF LUNG FIELD SNOMED Code(s): 976015539 (2) Liver lesion Status: Acute Priority: High Code(s): K76.9 - LIVER DISEASE, UNSPECIFIED SNOMED Code(s): 133679419 Plan: He is discharged per his request. We will attempt to contact him in the outpatient setting to schedule a biopsy. attests: I have seen and examined patient, performed H&P, developed impression and plan of care. Discussed with dictator. Agree with docume ntation, dictated as a scribe Time with Patient: Greater than 30
[2022-04-20] MEDS ORDERED: PANTOPRAZOLE 40 MG TABLET PO SCH (07:30)
== END 2022-04-19 13:35 | disposition hospice, home (50) | DRG 435 ==
LOC: EC 11:24 → 5NMEDONC 14:17
PROVIDERS: ADMIT Family Medicine; ATTEND Family Medicine
PROC: 30233N1 Transfusion of Nonautologous Red Blood Cells into Peripheral Vein, Percutaneous Approach (ICD-10-PCS; principal; 2022-04-18)
PROC: 5A1D70Z Performance of Urinary Filtration, Intermittent, Less than 6 Hours Per Day (ICD-10-PCS; 2022-04-18)
DX: C78.7 Secondary malignant neoplasm of liver and intrahepatic bile duct (principal); N18.6 End stage renal disease; C77.0 Secondary and unspecified malignant neoplasm of lymph nodes of head, face and neck; I12.0 Hypertensive chronic kidney disease with stage 5 chronic kidney disease or end stage renal disease; C77.1 Secondary and unspecified malignant neoplasm of intrathoracic lymph nodes; C34.11 Malignant neoplasm of upper lobe, right bronchus or lung; C34.90 Malignant neoplasm of unspecified part of unspecified bronchus or lung; D63.0 Anemia in neoplastic disease; E86.0 Dehydration; J44.9 Chronic obstructive pulmonary disease, unspecified; Z99.2 Dependence on renal dialysis; Z91.15 Patient's noncompliance with renal dialysis; E78.5 Hyperlipidemia, unspecified; H91.93 Unspecified hearing loss, bilateral; H26.9 Unspecified cataract; F17.200 Nicotine dependence, unspecified, uncomplicated; Z71.6 Tobacco abuse counseling; Z79.02 Long term (current) use of antithrombotics/antiplatelets; Z79.899 Other long term (current) drug therapy; Z87.11 Personal history of peptic ulcer disease; Z86.16 Personal history of COVID-19; Z86.73 Personal history of transient ischemic attack (TIA), and cerebral infarction without residual deficits; Z91.041 Radiographic dye allergy status
CPT/HCPCS: 36415; 36430; 74176; 80053; 81001; 82150; 82272; 83605; 83690; 85025; 85610; 85730; 86850; 86900; 86901; 86920; 90935; 93005; 96361; 96374; 96376; 99291